=== PATIENT | male | born 1955 | race Caucasian/White ===

== ENCOUNTER 2016-08-13 17:31 | Inpatient (IN) ==
[2016-08-13] MEDS ORDERED: Ondansetron 4 MG/2 ML VIAL IVP ONE (19:52)
[2016-08-13] MEDS ORDERED: *HR* Morphine 2 MG/ML SYRINGE IVP ONE (19:52)
[2016-08-13] MEDS ORDERED: 0.9 % Sodium Chloride 500 ML IVC ONE (19:54)
--- NOTE | 2016-08-13 20:02 | Emergency Department Note ---
Disposition Clinical Impression: Elevated liver enzymes Disposition: Admitted As Inpatient Condition: Fair Referrals: NO,PCP [Primary Care Provider] - Forms: Work/School Release, ED Satisfaction Letter General Adult HPI - General Chief complaint: ED General Medical Stated complaint: Knot on stomach Source: patient Limitations: no limitations - History of Present Illness HPI Narrative: This is a 61-year-old male who has a distant history of a bowel resection in the vicinity of 2002. He states over the past several weeks he has noticed a hernia but over the past week in particular would not go back in. It has been hurting over the last few days. He also has some generalized abdominal pain as well. He has been eating and drinking normally. No constipation or diarrhea. No fever. Pain is moderate. Pain Scale: 8 - Related Data Previous Rx's Medication Instructions Recorded Albuterol Sulfate [Albuterol 2 puff IH Q4HR PRN #1 [email or web address] 09/05/15 Inhaler] Ipratropium [Atrovent Inhaler] 2 puff IH QID #1 inhaler 03/10/16 Mometasone Furoate [Asmanex Hfa] 1 puff IH BID #1 [email or web address] 03/10/16 Acetaminophen [Tylenol] 1,000 mg PO Q6HR #8 tablet 03/23/16 Allergies Allergy/AdvReac Type Severity Reaction Status Date / Time No Known Allergies Allergy Verified 03/10/16 14:27 All systems ED: reviewed and negative except as stated. Constitutional: Denies: fever, chills ENT ED: Denies: throat pain Cardiovascular: Denies: chest pain Respiratory: Denies: dyspnea Gastrointestinal: Denies: vomiting Musculoskeletal: Denies: back pain, neck pain Past Medical History - Past Medical History Attestation: Yes The following information was validated with the patient. Medical history: Reports: COPD, other Psychiatric history: Reports: no psych history - Social History Smoking Status: Current every day smoker Smokeless Tobacco Status: No Alcohol use: Reports: none Drug use: Reports: none Physical Exam - General Limitations: no limitations General appearance: alert - Head Head exam: atraumatic - Eye Eye exam: Present: PERRL - ENT ENT exam: normal oropharynx - Neck Neck exam: Present: full ROM - Chest Chest inspection: Present: normal inspection, symmetric chest wall rise - Respiratory Respiratory exam: Present: wheezes, prolonged expiratory phase. Absent: respiratory distress - Cardiovascular Cardiovascular exam: Present: regular rate, normal rhythm - Abdominal Exam Abdominal exam: Present: other (Although it is not visible he seems to have a palpable hernia above the umbilical area. It does not reduce. There is some tenderness there. It small. He has some nonspecific tenderness throughout the abdomen. No rigidity rebound or guarding.) - Extremities Exam Extremities exam: Absent: pedal edema - Neurological Exam Neurological exam: Present: alert, oriented X3 - Psychiatric Psychiatric exam: Present: normal affect - Skin Skin exam: Present: warm, dry Course Course Narrative: This patient was mainly presenting for pain that he attributed to a hernia however on the CT scan of the abdomen and pelvis there is no bowel involvement of the hernia per the radiologist. Also has no evidence of bowel obstruction. However this patient clearly has other issues going on for initially suggested by the blood work. He has elevation of his liver transaminases and bilirubin. He denies any history of liver disease. I discussed the case with Dr. Lewis from general surgery. He does feel this is more of a GI issue he may end up needing something along the lines of an ERCP. I discussed the case with the hospitalist Dr. Perez to arrange for admission. Vital Signs Temperature 98.4 F 08/13/16 17:48 Pulse Rate 101 08/13/16 17:48 Respiratory Rate 14 08/13/16 17:48 Blood Pressure 121/83 08/13/16 17:48 O2 Sat by Pulse Oximetry 94 08/13/16 17:48 Temperature 98.4 F 08/13/16 17:48 Pulse Rate 89 08/13/16 23:50 Respiratory Rate 18 08/13/16 23:50 Blood Pressure 136/96 08/13/16 23:50 O2 Sat by Pulse Oximetry 95 08/13/16 23:50 Oxygen Delivery Oxygen Delivery Nasal Cannula Medical Decision Making - Lab Data Result diagrams: 08/13/16 20:10 08/13/16 20:10 Lab Results 08/13/16 08/13/16 08/13/16 Range/Units 20:10 20:10 20:10 WBC 8.9 (4.3-11.1) K/mcL RBC 4.68 (4.19-5.50) M/mcL Hgb 12.9 (12.9-16.9) g/dL Hct 39.6 (37.5-50.1) % MCV 84.6 (83.0-100.0) fL MCH 27.6 L (28.0-33.3) pg MCHC 32.6 (31.6-35.5) g/dL RDW 15.4 H (11.5-14.5) % Plt Count 332 (140-400) K/mcL MPV 10.0 (9.4-12.4) fL Immature Gran % 0.3 (0-4) % Seg Neutrophils % 64.6 % Lymphocytes % 16.7 % Monocytes % 15.8 % Eosinophils % 1.9 % Basophils % 0.7 % Neutrophils # 5.7 (1.6-8.9) K/mcL Lymphocytes # 1.5 (0.6-4.6) K/mcL Monocytes # 1.4 H (0.0-1.3) K/mcL Eosinophils # 0.2 (0.0-0.6) K/mcL Basophils # 0.1 (0.0-0.2) K/mcL Sodium 130 L (136-145) mEq/L Potassium 3.8 (3.5-4.5) mEq/L Chloride 95 L (98-109) mEq/L Carbon Dioxide 29 (19-29) mEq/L BUN 8 (8-26) mg/dL Creatinine 0.69 L (0.72-1.25) mg/dL Est GFR ( Amer) > 60 (> 60) Est GFR (Non-Af Amer) > 60 (> 60) BUN/Creatinine Ratio 12 (6-26) Glucose 102 H (70-99) mg/dL Calculated Osmolality 269 L (280-300) Lactic Acid 1.2 (0.5-2.2) mmol/L Calcium 9.0 (8.6-10.8) mg/dL Total Bilirubin 6.2 H (0.2-1.2) mg/dL Direct Bilirubin 5.0 H (0.0-0.5) mg/dL Indirect Bilirubin 1.2 (0.0-1.2) mg/dL AST 975 H (5-34) Units/L ALT 650 H (0-55) Units/L Alkaline Phosphatase 253 H (38-126) Units/L Serum Total Protein 7.3 (6.0-8.3) g/dL Albumin 3.1 L (3.5-5.0) g/dL Globulin 4.2 H (2.4-3.5) g/dL Albumin/Globulin Ratio 0.7 L (1.1-2.2) Lipase 6 L (8-78) Units/L Urine Color (Yellow) Urine Clarity (Clear) Urine pH (5.0-8.0) pH Units Ur Specific Sparks (1.010-1.025) Urine Protein (Neg-Trace) mg/dL Urine Glucose (UA) (Normal) mg/dL Urine Ketones (Negative) mg/dL Urine Blood (Negative) Urine Nitrite (Negative) Urine Bilirubin (Negative) Urine Urobilinogen (Normal) mg/dL Ur Leukocyte Esterase (Negative) Urine Microscopic RBC (0-3) per hpf Urine Microscopic WBC (0-3) per hpf Ur Squamous Epith Cells (None-Few) per lpf Urine Bacteria Hyaline Casts (None-Few) per lpf Urine Mucus (Few) Ur Culture Indicated? (NO) 08/13/16 Range/Units 20:46 WBC (4.3-11.1) K/mcL RBC (4.19-5.50) M/mcL Hgb (12.9-16.9) g/dL Hct (37.5-50.1) % MCV (83.0-100.0) fL MCH (28.0-33.3) pg MCHC (31.6-35.5) g/dL RDW (11.5-14.5) % Plt Count (140-400) K/mcL MPV (9.4-12.4) fL Immature Gran % (0-4) % Seg Neutrophils % % Lymphocytes % % Monocytes % % Eosinophils % % Basophils % % Neutrophils # (1.6-8.9) K/mcL Lymphocytes # (0.6-4.6) K/mcL Monocytes # (0.0-1.3) K/mcL Eosinophils # (0.0-0.6) K/mcL Basophils # (0.0-0.2) K/mcL Sodium (136-145) mEq/L Potassium (3.5-4.5) mEq/L Chloride (98-109) mEq/L Carbon Dioxide (19-29) mEq/L BUN (8-26) mg/dL Creatinine (0.72-1.25) mg/dL Est GFR ( Amer) (> 60) Est GFR (Non-Af Amer) (> 60) BUN/Creatinine Ratio (6-26) Glucose (70-99) mg/dL Calculated Osmolality (280-300) Lactic Acid (0.5-2.2) mmol/L Calcium (8.6-10.8) mg/dL Total Bilirubin (0.2-1.2) mg/dL Direct Bilirubin (0.0-0.5) mg/dL Indirect Bilirubin (0.0-1.2) mg/dL AST (5-34) Units/L ALT (0-55) Units/L Alkaline Phosphatase (38-126) Units/L Serum Total Protein (6.0-8.3) g/dL Albumin (3.5-5.0) g/dL Globulin (2.4-3.5) g/dL Albumin/Globulin Ratio (1.1-2.2) Lipase (8-78) Units/L Urine Color Red A (Yellow) Urine Clarity Turbid A (Clear) Urine pH 5.5 (5.0-8.0) pH Units Ur Specific Sparks 1.030 H (1.010-1.025) Urine Protein 30 H (Neg-Trace) mg/dL Urine Glucose (UA) Normal (Normal) mg/dL Urine Ketones Trace H (Negative) mg/dL Urine Blood Negative (Negative) Urine Nitrite Positive A (Negative) Urine Bilirubin Large H (Negative) Urine Urobilinogen 4.0 H (Normal) mg/dL Ur Leukocyte Esterase Small H (Negative) Urine Microscopic RBC 5-15 H (0-3) per hpf Urine Microscopic WBC 5-15 H (0-3) per hpf Ur Squamous Epith Cells Moderate H (None-Few) per lpf Urine Bacteria [employer] Hyaline Casts Few (None-Few) per lpf Urine Mucus Few (Few) Ur Culture Indicated? YES A (NO)
[2016-08-13 20:15] LABS: Basophils # 0.1 K/mcL (0.0-0.2); Basophils % 0.7 %; Eosinophils # 0.2 K/mcL (0.0-0.6); Eosinophils % 1.9 %; Hematocrit 39.6 % (37.5-50.1); Hemoglobin 12.9 g/dL (12.9-16.9); Immature Granulocytes % 0.3 % (0-4); Lymphocytes # 1.5 K/mcL (0.6-4.6); Lymphocytes % 16.7 %; Mean Corpuscular HGB Conc 32.6 g/dL (31.6-35.5); Mean Corpuscular Hemoglobin 27.6 pg (28.0-33.3); Mean Corpuscular Volume 84.6 fL (83.0-100.0); Monocytes # 1.4 K/mcL (0.0-1.3); Monocytes % 15.8 %; Neutrophils # 5.7 K/mcL (1.6-8.9); Platelet Count 332 K/mcL (140-400); Red Blood Count 4.68 M/mcL (4.19-5.50); Red Cell Distribution Width 15.4 % (11.5-14.5); Segmented Neutrophils % 64.6 %
[2016-08-13 20:30] LABS: Alanine Aminotransferase 650 Units/L (0-55); Albumin 3.1 g/dL (3.5-5.0); Albumin/Globulin Ratio 0.7 (1.1-2.2); Alkaline Phosphatase 253 Units/L (38-126); Aspartate Amino Transferase 975 Units/L (5-34); BUN/Creatinine Ratio 12 (6-26); Bilirubin,Indirect 1.2 mg/dL (0.0-1.2); Bilirubin,Total 6.2 mg/dL (0.2-1.2); Blood Urea Nitrogen 8 mg/dL (8-26); Carbon Dioxide 29 mEq/L (19-29); Chloride 95 mEq/L (98-109); Globulin 4.2 g/dL (2.4-3.5); Glucose 102 mg/dL (70-99); Lipase 6 Units/L (8-78); Osmolality,Calculated 269 (280-300); Potassium 3.8 mEq/L (3.5-4.5); Sodium 130 mEq/L (136-145); Total Protein 7.3 g/dL (6.0-8.3); eGFR For African Americans > 60 (> 60); eGFR For Non-African Americans > 60 (> 60)
[2016-08-13 21:02] LABS: Bilirubin,Urine Large (Negative); Blood,Urine Negative (Negative); Clarity,Urine Turbid (Clear); Color,Urine Red (Yellow); Glucose,Urine (UA) Normal (Normal); Ketones,Urine Trace mg/dL (Negative); Leukocyte Esterase,Urine Small (Negative); Nitrite,Urine Positive (Negative); PH,Urine 5.5 pH Units (5.0-8.0); Protein,Urine 30 mg/dL (Neg-Trace)
[2016-08-13 21:04] LABS: Hyaline Casts,Urine Few per lpf (None-Few); Squamous Epithelial Cell,Urine Moderate per lpf (None-Few)
[2016-08-13 21:14] LABS: Mucus,Urine Few (Few)
[2016-08-14] MEDS ORDERED: *HR* HYDROmorphone (PF) 1 MG/ML SYRINGE IVP ONE (00:04)
--- NOTE | 2016-08-14 04:36 | Internal Med History&Physical ---
Date of Encounter: 08/14/16 Time of Encounter: 04:30 Assessment and Plan (1) Choledocholithiasis with obstruction Current visit: Yes Status: Acute . Qualifiers: Cholangitis presence: without cholangitis Qualified Code(s): K80.51 - Calculus of bile duct without cholangitis or cholecystitis with obstruction (2) Acute cholestatic jaundice syndrome Current visit: Yes Status: Acute . (3) Acute abdominal pain syndrome Current visit: Yes Status: Acute . Internal Medicine - H&P: HPI Chief complaint: Pain/Knot on stomach. Admitted From: Emergency Dept Plans for Post Hospital Care: Home History of present illness: Mr. Fair is a 61 year old male with significant health history for COPD/plan lobular emphysema, asthma/RAD, cholelithiasis, steatohepatitis, nicotine dependency, and history of partial bowel resection unspecified in 2002. The patient is admitted [facility] the emergency department when he presents with reports of his appreciation of a tender knot-like structure near his navel. She did not present for the last week in particular it seemed to nonreducible and was associated with the pain. He denied any symptoms of bowel obstruction. Denied any effect in his ability to eat or drink normally. Denied any constipation or diarrhea that precipitated this finding. Denied any associated fevers, chills sweats. He denies any evidence of any bleeding events. His pain however he reported it as being moderate to severe at roughly 8/10 in severity. He had experienced episodes of increasing nausea and vomiting. He however noted no evidence of bleeding. He had noted increasing itchiness of his skin of late and a sallow following of his complexion. He had noted some increasing generalized malaise and easy fatigability. He denies any specific dietary intolerances. Denies any dietary or medication indiscretions. He denies any sick contacts. Findings an EGD done his vital signs are stable except for a mild tachycardia at 101 bpm and resting hypoxemia at 94%RA. WBC 8.9 hemoglobin 12.9 platelets 332,000. Differential showed an increase in monocytes. RDW increased at 15.4. Metabolic panel noted a sodium of 1. Chloride of 95. BUN and creatinine were 8 and 0.69. Glucose 102 osmolality 269. Lactic acid 1.2. Hepatic function, total bilirubin of 6.2 direct 5.0. Indirect 1.2. AST 975 ALT 650 alkaline phosphatase 253. Albumin 3.2 total protein 7.3. Urinalysis was red in color turbid appearance. Positive protein. Trace ketones. Positive nitrite and large bilirubin. Urobilinogen 4.0. Small leukocyte esterase. 15 RBC. 15 WBC. Moderate epithelial cells. Few hyaline casts. Specific gravity 1.03. CT of abdomen and pelvis with IV contrast demonstrated evidence for intrahepatic and extrahepatic biliary ductal dilatation of uncertain etiology. ERCP versus MRCP recommendations are made. Gallbladder was contracted. Pancreatic duct was not dilated. The spleen and adrenal glands kidneys appeared to be normal. There was no obstructive bowel gas pattern. A small supraumbilical hernia with soft tissue stranding but no evidence of contained bowel was seen. Calcific atherosclerotic disease of the aorta and iliac arteries without aneurysm was seen. Diffuse degenerative changes of the osseous structures seen. tissue prominence of the lung basis is of concern and the recommendation for a high-resolution CT chest is made. Preliminary impression suggests acute cholestatic jaundice secondary to biliary ductal obstruction in a patient with long-standing history of intermittently symptomatic cholelithiasis. There is no history of diagnosed chronic cholecystitis or acute cholecystitis the patient does raise a question of a spot being seen on his status which is unspecified. Denies alcohol dependence or abuse history. He does acknowledge recreational drug abuse history or dependence( IV Opana/daily). Findings are significant for resting hypoxemia in a patient with panlobular emphysema visiting with a mild reactive airway disease. The patient does not present with SIRS/sepsis criteria being met admission. He presents however risk for further clinical decline his presenting complaints his comorbidities and clinical findings. (ED consulted general surgery informally prior to admission and recommendation was to defer to gastroenterology.) Workup and treatment will proceed comprehensively. The patient was visited and interviewed and examined. Cumulative laboratory and radiographic data base will be considered and discussed. Pertinent ancillary medical records including ECW and PCI documentation when available was reviewed and considered. Given the patient's presenting concerns, past medical history, clinical findings and symptoms, she is admitted at this time will undergo further evaluation and disposition. Orders were written as per the computerized physician warehouse order filler system.......................................................................... .................... Consultative opinions will be sought as clinical circumstances justify. Gastroenterology (and ultimately general surgery) will be consulted Pain management needs will be addressed. Laboratory+radiographic data base will be updated as appropriate. Studies include: Cultures of blood and urine and sputum, viral hep panel, pt/inr, aptt, CEA, CA19-9, amylase, lipase, cardiac injury panel, BNP, cpk, metabolic and hematologic panel, magnesium, phosphorus, ionized calcium, UDS, UA, thyroid panel, lipid profile, A1c, C-peptide, CRP, sedimentation rate, respiratory infection profile, respiratory virus panel, blood gas, lactic acid, serologies, etc. Precautions: Aspiration, fall, seizure, delirium protocol/surveillance initiated. Telemetry with continuous hemodynamic monitoring and pulse oximetry initiated. Empiric antibiotic coverage: pending diagnostic/culture data. Special studies: HRCT chest, CT ab/pelvis, MRCP, chest x-ray, telemetry, EKG. Pulmonary toilet: Incentive spirometry, aerosol bronchodilator, mucolytic, antitussive, supplemental oxygen. Corticosteroid therapy. CPAP/BiPAP supplemental oxygen delivery. Aerosol Mucomyst therapy. Fluid and electrolyte repletion efforts will proceed. Careful attention to fluid balance and renal recovery will be emphasized. Avoidance of nephrotoxic exposure and adverse drug drug interaction in the setting of impaired renal function will be monitored closely. Acute coronary syndrome protocol/surveillance initiated. DVT and PUD prophylaxis initiated: PPI therapy, intermittent pneumatic cuffs/ TEDs. Subcutaneous heparin/Lovenox. Early ambulation will be encouraged. Immunization updates recommended. Influenza and pneumococcal vaccinations as part of ongoing preventative healthcare recommendations strongly recommended. Smoking cessation counseling briefly addressed. Patient accepts nicotine substitution during this hospitalization.. Advanced care directive discussion briefly addressed. Patient does not declare any healthcare restrictions at this time. Cardiovascular risk appraisal and cardiovascular risk reduction efforts will be emphasized. Physical occupational therapy may be counseled to evaluate patient's function capacity and progressive mobility of her circumstances justify. Nutrition/dietary education. Supplementary diet options counseling may be considered.. Outpatient medication schedules will be reviewed, confirmed and facilitated as appropriate. Reconciliation of home treatments including adjustments, substitutions and reintroduction into the treatment regimen will address necessary maintenance therapies for chronic pre-existing medical conditions. Plan of care has been reviewed and discussed in detail with the patient. Questions addressed. Hospital course dictated by clinical findings, treatment response and potential consultative interventions. Patient is a risk for further acute clinical decline due to his presenting chief complaints, findings and comorbid conditions. Condition is serious. Prognosis is guarded. CODE STATUS is full. Past Med Surg Social Fam HX - Past Medical History Source: old records reviewed Medical history: arthritis, asthma, COPD, other Psychiatric history: no psych history - Past Surgical History Surgical History: other - Social History Smoking Status: Current every day smoker Smokeless Tobacco Status: No Alcohol use: none, unknown Drug use: none, opiates, IVDU, other (OPANA) Occupational status: unemployed Current living situation: Home - Independent, Home Activity Level: Independent ambulation, Mostly sedentary Recent Out of Country Travel Within the Last 8 Weeks: No Exposure or Possible Exposure to Illness During Travel: No - Family History Father Adopted: [place]: Galen Fair Living Status: Age at : 69 Hx Family Cardiac Disorders: No Hx Family Respiratory Disorders: No Hx Family Cancer: Yes (Colon cancer) Hx Family GI Disorders: Yes Hx Family Genitourinary Disorders: No Hx Family Endocrine Disorder: No Hx Family Musculoskeletal Disorders: No Hx Family Neuromuscular Disorders: No Hx Family Neurologic Disorders: No Hx Family HEENT Disorders: No Hx Family Autoimmune Disorders: No Hx Family Reproductive Disorders: No Hx Family Psychosocial Disorders: No Hx Family Medical Disorders: No Mother Adopted: [place]: Edwina Fair Family Member Ethnicity: Non- Living Status: Age at : 69 Hx Family Cardiac Disorders: No Hx Family Respiratory Disorders: Yes (COPD) Hx Family Cancer: Yes Hx Family GI Disorders: No Hx Family Genitourinary Disorders: No Hx Family Endocrine Disorder: No Hx Family Musculoskeletal Disorders: No Hx Family Neuromuscular Disorders: No Hx Family Neurologic Disorders: No Hx Family HEENT Disorders: No Hx Family Autoimmune Disorders: No Hx Family Reproductive Disorders: No Hx Family Psychosocial Disorders: No Hx Family Medical Disorders: No Internal Medicine - H&P: Meds Albuterol Sulfate [Albuterol Inhaler] 2 puff IH Q4HR PRN #1 [email or web address] 09/05/15 [Rx] Ipratropium [Atrovent Inhaler] 2 puff IH QID #1 inhaler 03/10/16 [Rx] Mometasone Furoate [Asmanex Hfa] 1 puff IH BID #1 [email or web address] 03/10/16 [Rx] Allergies No Known Allergies Allergy (Verified 03/10/16 14:27) All Systems PM: A 10-system review of systems was performed and is negative for pertinent findings except as documented above in the HPI. - Constitutional Constitutional: as per HPI, anorexia, fatigue, malaise, other, no chills, no excessive sweating, no fever(s), no night sweats - EENT Eyes: as per HPI, other visual disturbances, no change in vision, no discharge, no pain, no photophobia Ears: as per HPI, decreased hearing, no ear discharge, no ear pain, no tinnitus Nose, mouth and throat: as per HPI, no dysphagia, no nasal discharge, no neck pain, no sore throat - Cardiovascular Cardiovascular ROS IM: as per HPI, no chest pain, no diaphoresis, no dyspnea, no lightheadedness, no palpitations, no syncope - Respiratory Respiratory: as per HPI, other, no cough, no dyspnea, no wheezing, no excessive phlegm production - Gastrointestinal Gastrointestinal: as per HPI, abdominal pain, cramping, early satiety, nausea, vomiting, no coffee ground emesis, no diarrhea, no hematemesis, no hematochezia , no melena - Genitourinary Genitourinary ROS male: as per HPI - Musculoskeletal Musculoskeletal ROS IM: as per HPI, no numbness, no tingling - Integumentary Integumentary IM: as per HPI, pruritus, jaundice, other, no rash, no unusual bruising - Neurological Neurological ROS: as per HPI, no confusion, no convulsions, no focal weakness, no numbness, no tingling, no tremor(s) - Psychiatric Psychiatric: as per HPI - Endocrine Endocrine IM: as per HPI - Hematologic/Lymphatic Hematologic/Lymphatic: as per HPI, no easy bruising - Allergic/Immunologic Allergic/Immunologic: as per HPI - Constitutional Vitals: Temp Pulse Resp BP Pulse Ox 98 F 89 14 122/79 97 08/14/16 01:37 08/14/16 01:37 08/14/16 01:37 08/14/16 01:37 08/14/16 01:37 Vital Signs Temp Pulse Resp BP Pulse Ox 08/14/16 01:37 98 F 89 14 122/79 97 08/14/16 00:59 18 134/102 08/14/16 00:24 89 18 143/76 94 08/13/16 23:50 89 18 136/96 95 08/13/16 22:55 90 18 135/95 96 08/13/16 21:55 95 18 123/83 96 08/13/16 20:43 90 18 129/98 92 08/13/16 17:48 98.4 F 101 14 121/83 94 Intake and Output 08/13/16 08/13/16 08/14/16 15:59 23:59 07:59 Intake Total 500 / 500 0 / 0 Balance 500 / 500 0 / 0 Intake: IV Fluids 500 / 500 0.9 % Sodium Chloride 500 500 / 500 ML @ 1875 mls/hr IVC . Q16M ONE Rx#:[id number] Oral 0 / 0 Other: Weight 63.503 kg 58.786 kg Patient Weight 08/14/16 23:59 Weight 58.786 kg General appearance: Present: cooperative, mild distress, A&O X 3, answers questions appropriately - Head Head exam: Present: atraumatic, normocephalic - Eye Eye exam: Present: conjunctival injection, EOMI, PERRL, scleral icterus Pupils: Present: normal accommodation - ENT ENT exam: Present: mucous membranes dry, normal external ear exam, normal oropharynx - Neck Neck exam general surgery: Present: full ROM, supple, trachea midline. Absent: lymphadenopathy - Respiratory Respiratory exam: Present: decreased breath sounds, prolonged expiratory phase, wheezes. Absent: accessory muscle use, CTAB, rales, rhonchi, stridor - Cardiovascular Cardiovascular exam: Present: distant heart sounds, RRR, +S1, +S2. Absent: diastolic murmur, gallop, rubs, systolic murmur - GI/Abdominal GI/Abdominal exam: Present: diminished bowel sounds, distended, hernia, soft, tenderness, no peritoneal signs. Absent: rebound - Extremities Exam Extremities exam: Present: full ROM, warm, radial pulses palpable and symetrical. Absent: calf tenderness, cyanotic, pedal edema - Neurological Exam Neurological exam: Present: alert, CN II-XII intact, oriented X3, no focal deficits. Absent: pronater drift, facial droop, speech deficit - Psychiatric Psychiatric exam: Present: normal affect, normal mood - Skin Skin exam: Present: dry, intact, warm. Absent: normal color Internal Med - H&P Results - Labs CBC & Chem 7: 08/13/16 20:10 08/13/16 20:10 Labs: Short CBC 08/13/16 Range/Units 20:10 WBC 8.9 (4.3-11.1) K/mcL Hgb 12.9 (12.9-16.9) g/dL Hct 39.6 (37.5-50.1) % Plt Count 332 (140-400) K/mcL Neutrophils # 5.7 (1.6-8.9) K/mcL BMP 08/13/16 Range/Units 20:10 Sodium 130 L (136-145) mEq/L Potassium 3.8 (3.5-4.5) mEq/L Chloride 95 L (98-109) mEq/L Carbon Dioxide 29 (19-29) mEq/L BUN 8 (8-26) mg/dL Creatinine 0.69 L (0.72-1.25) mg/dL Glucose 102 H (70-99) mg/dL Calcium 9.0 (8.6-10.8) mg/dL Liver Function 08/13/16 Range/Units 20:10 Total Bilirubin 6.2 H (0.2-1.2) mg/dL Direct Bilirubin 5.0 H (0.0-0.5) mg/dL AST 975 H (5-34) Units/L ALT 650 H (0-55) Units/L Alkaline Phosphatase 253 H (38-126) Units/L Albumin 3.1 L (3.5-5.0) g/dL Urine 08/13/16 Range/Units 20:46 Urine Color Red A (Yellow) Urine Clarity Turbid A (Clear) Urine pH 5.5 (5.0-8.0) pH Units Ur Specific [place] 1.030 H (1.010-1.025) Urine Protein 30 H (Neg-Trace) mg/dL Urine Glucose (UA) Normal (Normal) mg/dL Abnormal lab results MCH 27.6 pg (28.0-33.3) L 08/13/16 20:10 RDW 15.4 % (11.5-14.5) H 08/13/16 20:10 Monocytes # 1.4 K/mcL (0.0-1.3) H 08/13/16 20:10 Sodium 130 mEq/L (136-145) L 08/13/16 20:10 Chloride 95 mEq/L (98-109) L 08/13/16 20:10 Creatinine 0.69 mg/dL (0.72-1.25) L 08/13/16 20:10 Glucose 102 mg/dL (70-99) H 08/13/16 20:10 Calculated Osmolality 269 (280-300) L 08/13/16 20:10 Total Bilirubin 6.2 mg/dL (0.2-1.2) H 08/13/16 20:10 Direct Bilirubin 5.0 mg/dL (0.0-0.5) H 08/13/16 20:10 AST 975 Units/L (5-34) H 08/13/16 20:10 ALT 650 Units/L (0-55) H 08/13/16 20:10 Alkaline Phosphatase 253 Units/L (38-126) H 08/13/16 20:10 Albumin 3.1 g/dL (3.5-5.0) L 08/13/16 20:10 Globulin 4.2 g/dL (2.4-3.5) H 08/13/16 20:10 Albumin/Globulin Ratio 0.7 (1.1-2.2) L 08/13/16 20:10 Lipase 6 Units/L (8-78) L 08/13/16 20:10 Urine Color Red (Yellow) A 08/13/16 20:46 Urine Clarity Turbid (Clear) A 08/13/16 20:46 Ur Specific [place] 1.030 (1.010-1.025) H 08/13/16 20:46 Urine Protein 30 mg/dL (Neg-Trace) H 08/13/16 20:46 Urine Ketones Trace mg/dL (Negative) H 08/13/16 20:46 Urine Nitrite Positive (Negative) A 08/13/16 20:46 Urine Bilirubin Large (Negative) H 08/13/16 20:46 Urine Urobilinogen 4.0 mg/dL (Normal) H 08/13/16 20:46 Ur Leukocyte Esterase Small (Negative) H 08/13/16 20:46 Urine Microscopic RBC 5-15 per hpf (0-3) H 08/13/16 20:46 Urine Microscopic WBC 5-15 per hpf (0-3) H 08/13/16 20:46 Ur Squamous Epith Cells Moderate per lpf (None-Few) H 08/13/16 20:46 Ur Culture Indicated? YES (NO) A 08/13/16 20:46 Laboratory Results WBC 8.9 K/mcL (4.3-11.1) 08/13/16 20:10 RBC 4.68 M/mcL (4.19-5.50) 08/13/16 20:10 Hgb 12.9 g/dL (12.9-16.9) 08/13/16 20:10 Hct 39.6 % (37.5-50.1) 08/13/16 20:10 MCV 84.6 fL (83.0-100.0) 08/13/16 20:10 MCH 27.6 pg (28.0-33.3) L 08/13/16 20:10 MCHC 32.6 g/dL (31.6-35.5) 08/13/16 20:10 RDW 15.4 % (11.5-14.5) H 08/13/16 20:10 Plt Count 332 K/mcL (140-400) 08/13/16 20:10 MPV 10.0 fL (9.4-12.4) 08/13/16 20:10 Immature Gran % 0.3 % (0-4) 08/13/16 20:10 Seg Neutrophils % 64.6 % 08/13/16 20:10 Lymphocytes % 16.7 % 08/13/16 20:10 Monocytes % 15.8 % 08/13/16 20:10 Eosinophils % 1.9 % 08/13/16 20:10 Basophils % 0.7 % 08/13/16 20:10 Neutrophils # 5.7 K/mcL (1.6-8.9) 08/13/16 20:10 Lymphocytes # 1.5 K/mcL (0.6-4.6) 08/13/16 20:10 Monocytes # 1.4 K/mcL (0.0-1.3) H 08/13/16 20:10 Eosinophils # 0.2 K/mcL (0.0-0.6) 08/13/16 20:10 Basophils # 0.1 K/mcL (0.0-0.2) 08/13/16 20:10 Sodium 130 mEq/L (136-145) L 08/13/16 20:10 Potassium 3.8 mEq/L (3.5-4.5) 08/13/16 20:10 Chloride 95 mEq/L (98-109) L 08/13/16 20:10 Carbon Dioxide 29 mEq/L (19-29) 08/13/16 20:10 BUN 8 mg/dL (8-26) 08/13/16 20:10 Creatinine 0.69 mg/dL (0.72-1.25) L 08/13/16 20:10 Est GFR ( Amer) > 60 (> 60) 08/13/16 20:10 Est GFR (Non-Af Amer) > 60 (> 60) 08/13/16 20:10 BUN/Creatinine Ratio 12 (6-26) 08/13/16 20:10 Glucose 102 mg/dL (70-99) H 08/13/16 20:10 Calculated Osmolality 269 (280-300) L 08/13/16 20:10 Lactic Acid 1.2 mmol/L (0.5-2.2) 08/13/16 20:10 Calcium 9.0 mg/dL (8.6-10.8) 08/13/16 20:10 Total Bilirubin 6.2 mg/dL (0.2-1.2) H 08/13/16 20:10 Direct Bilirubin 5.0 mg/dL (0.0-0.5) H 08/13/16 20:10 Indirect Bilirubin 1.2 mg/dL (0.0-1.2) 08/13/16 20:10 AST 975 Units/L (5-34) H 08/13/16 20:10 ALT 650 Units/L (0-55) H 08/13/16 20:10 Alkaline Phosphatase 253 Units/L (38-126) H 08/13/16 20:10 Serum Total Protein 7.3 g/dL (6.0-8.3) 08/13/16 20:10 Albumin 3.1 g/dL (3.5-5.0) L 08/13/16 20:10 Globulin 4.2 g/dL (2.4-3.5) H 08/13/16 20:10 Albumin/Globulin Ratio 0.7 (1.1-2.2) L 08/13/16 20:10 Lipase 6 Units/L (8-78) L 08/13/16 20:10 Urine Color Red (Yellow) A 08/13/16 20:46 Urine Clarity Turbid (Clear) A 08/13/16 20:46 Urine pH 5.5 pH Units (5.0-8.0) 08/13/16 20:46 Ur Specific [place] 1.030 (1.010-1.025) H 08/13/16 20:46 Urine Protein 30 mg/dL (Neg-Trace) H 08/13/16 20:46 Urine Glucose (UA) Normal mg/dL (Normal) 08/13/16 20:46 Urine Ketones Trace mg/dL (Negative) H 08/13/16 20:46 Urine Blood Negative (Negative) 08/13/16 20:46 Urine Nitrite Positive (Negative) A 08/13/16 20:46 Urine Bilirubin Large (Negative) H 08/13/16 20:46 Urine Urobilinogen 4.0 mg/dL (Normal) H 08/13/16 20:46 Ur Leukocyte Esterase Small (Negative) H 08/13/16 20:46 Urine Microscopic RBC 5-15 per hpf (0-3) H 08/13/16 20:46 Urine Microscopic WBC 5-15 per hpf (0-3) H 08/13/16 20:46 Ur Squamous Epith Cells Moderate per lpf (None-Few) H 08/13/16 20:46 Urine Bacteria EEG TECHNICIAN 08/13/16 20:46 Hyaline Casts Few per lpf (None-Few) 08/13/16 20:46 Urine Mucus Few (Few) 08/13/16 20:46 Ur Culture Indicated? YES (NO) A 08/13/16 20:46 Impressions Abdomen/Pelvis CT 08/13/16 22:30 IMPRESSION: Intrahepatic and extrahepatic biliary ductal dilation of uncertain etiology. Recommend correlation with liver function tests. ERCP or MRCP are recommended for further evaluation. Interstitial prominence at both lung bases. High-resolution chest CT is recommended for further evaluation. Small supraumbilical hernia with soft tissue stranding but no evidence for contained bowel D/ / Marvin Feliciano MD / Marvin Feliciano MD Interpreting Provider: Marvin Feliciano MD
[2016-08-14] MEDS ORDERED: Naloxone 0.4 MG/ML INJ IVP PRN (09:02)
[2016-08-14] MEDS ORDERED: Acetaminophen 325 MG TABLET PO PRN (09:02)
[2016-08-14] MEDS ORDERED: *HR* Promethazine 25 MG/ML VIAL IVP PRN (09:02)
[2016-08-14] MEDS ORDERED: *HR* LORazepam 2 MG/ML VIAL IVP PRN ×3 (09:02)
[2016-08-14] MEDS ORDERED: Scopolamine Patch 1.5 MG PATCH.TD72 TD ONE (09:15)
[2016-08-14] MEDS ORDERED: Benzonatate 100 MG CAPSULE PO PRN (09:15)
[2016-08-14] MEDS ORDERED: Ketorolac 15 MG/ML VIAL IVP PRN (09:16)
[2016-08-14] MEDS ORDERED: Promethazine 12.5 MG in 0.9 % Sodium Chloride 50 ML IVPB PRN (09:44)
[2016-08-14] MEDS: Pantoprazole 40 MG VIAL IVP SCH ×2 (09:52→21:26)
[2016-08-14] MEDS: Ringers Solution, Lactated 1,000 ML IVC SCH ×3 (09:52→15:02)
[2016-08-14] MEDS: *HR* HYDROmorphone (PF) 1 MG/ML SYRINGE IVP PRN ×2 (09:53→21:26)
[2016-08-14 10:21] LABS: Basophils # 0.1 K/mcL (0.0-0.2); Basophils % 0.6 %; Eosinophils # 0.3 K/mcL (0.0-0.6); Eosinophils % 3.2 %; Hematocrit 36.6 % (37.5-50.1); Hemoglobin 12.3 g/dL (12.9-16.9); Immature Granulocytes % 0.4 % (0-4); Lymphocytes # 1.3 K/mcL (0.6-4.6); Lymphocytes % 15.9 %; Mean Corpuscular HGB Conc 33.6 g/dL (31.6-35.5); Mean Corpuscular Hemoglobin 28.1 pg (28.0-33.3); Mean Corpuscular Volume 83.8 fL (83.0-100.0); Mean Platelet Volume 10.4 fL (9.4-12.4); Monocytes # 1.3 K/mcL (0.0-1.3); Neutrophils # 5.2 K/mcL (1.6-8.9); Platelet Count 309 K/mcL (140-400); Red Blood Count 4.37 M/mcL (4.19-5.50); Red Cell Distribution Width 15.5 % (11.5-14.5); Segmented Neutrophils % 63.9 %
[2016-08-14 10:26] LABS: INR 1.7; Prothrombin Time 18.7 Seconds (9.4-12.1)
[2016-08-14 10:28] LABS: Activated Partial Thrombo Time 33.9 Seconds (26.0-36.0)
[2016-08-14 11:28] LABS: BUN/Creatinine Ratio 9 (6-26); Calcium 8.2 mg/dL (8.6-10.8); Carbon Dioxide 25 mEq/L (19-29); Chloride 100 mEq/L (98-109); Glucose 93 mg/dL (70-99); Magnesium 1.5 mg/dL (1.6-2.6); Osmolality,Calculated 275 (280-300); Phosphorous 2.6 mg/dL (2.3-4.7); Potassium 3.9 mEq/L (3.5-4.5); Sodium 134 mEq/L (136-145); eGFR For African Americans > 60 (> 60); eGFR For Non-African Americans > 60 (> 60)
[2016-08-14 11:29] LABS: Blood Urea Nitrogen 5 mg/dL (8-26)
--- NOTE | 2016-08-14 12:28 | Gastroenterology Consult Note ---
<WoodsRohan watts Katherin - Last Filed: 08/14/16 12:26> Date of Encounter: 08/14/16 Time of Encounter: 10:40 - Assessment and plan (1) Obstructive jaundice Current Visit: Yes Status: Acute Assessment and plan: CT A/P showed intra/extrahepatic biliary dilation. LFT elevated on admission. TB 6.2, DB 5, AST 975, ALT 650, alkaline phosphatase 253. We will recheck hepatic panel. Plan for ERCP today, keep NPO. (2) Elevated liver enzymes Current Visit: Yes Status: Acute - Time Spent With Patient Total time spent is greater than 50% in coordination of care (as documented) at patient's floor/unit and/or counseling patient: GI History of Present Illness - Data of Consult Patient: new to practice Consult date: 08/14/16 Requesting Physician: Wood Benton MD - Consult Narrative Reason for consult: Biliary obstruction, possible stone History of present illness: Mr. Fair is a 61 year old male with PMHx of bowel rescection in 2002, asthma , COPD who was admitted for abdominal pain and hernia near his umbilicus that would not "go back in". He has been able to eat and drink normally. He denies fever, chills, sweats, constipation, diarrhea, melena, or hematochezia. He does report some nausea and vomiting. CT A/P showed intra/extrahepatic biliary dilation. LFT elevated on admission. Procedures: None NSAIDs: None Anticoagulation: None Past Med Surg Social Fam HX - Past Medical History Medical history: arthritis, asthma, COPD, other Psychiatric history: no psych history - Past Surgical History Surgical History: other - Social History Smoking Status: Current every day smoker Smokeless Tobacco Status: No Alcohol use: none, unknown Drug use: none, opiates, IVDU, other (OPANA) - Family History Father Adopted: [place]: Galen Fair Living Status: Age at : 69 Hx Family Cardiac Disorders: No Hx Family Respiratory Disorders: No Hx Family Cancer: Yes (Colon cancer) Hx Family GI Disorders: Yes Hx Family Genitourinary Disorders: No Hx Family Endocrine Disorder: No Hx Family Musculoskeletal Disorders: No Hx Family Neuromuscular Disorders: No Hx Family Neurologic Disorders: No Hx Family HEENT Disorders: No Hx Family Autoimmune Disorders: No Hx Family Reproductive Disorders: No Hx Family Psychosocial Disorders: No Hx Family Medical Disorders: No Mother Adopted: [place]: Edwina Fair Family Member Ethnicity: Non- Living Status: Age at : 69 Hx Family Cardiac Disorders: No Hx Family Respiratory Disorders: Yes (COPD) Hx Family Cancer: Yes Hx Family GI Disorders: No Hx Family Genitourinary Disorders: No Hx Family Endocrine Disorder: No Hx Family Musculoskeletal Disorders: No Hx Family Neuromuscular Disorders: No Hx Family Neurologic Disorders: No Hx Family HEENT Disorders: No Hx Family Autoimmune Disorders: No Hx Family Reproductive Disorders: No Hx Family Psychosocial Disorders: No Hx Family Medical Disorders: No - Gastrointestinal Gastrointestinal: Present: as per HPI - Constitutional Constitutional: as per HPI - EENT Eyes: as per HPI Ears: Present: as per HPI Nose, mouth and throat: Present: as per HPI - Cardiovascular Cardiovascular ROS: Present: as per HPI - Respiratory Respiratory IM: Present: as per HPI - Genitourinary Genitourinary: Absent: change in color, Urinary frequency - Neurological ROS Neurological GI: Present: as per HPI - Hematologic/Lymphatic Hematologic/Lymphatic pediatric: Present: as per HPI - Musculoskeletal Musculoskeletal ROS GI: Present: as per HPI - Integumentary Integumentary GI: Present: as per HPI - Psychiatric ROS Psychiatric GI: Present: as per HPI - Endocrine Endocrine IM: Present: as per HPI - Constitutional Vitals: Temp Pulse Resp BP Pulse Ox 98.2 F 85 18 107/74 94 08/14/16 10:59 08/14/16 10:59 08/14/16 10:59 08/14/16 10:59 08/14/16 10:59 General appearance: Present: cooperative, A&O X 3, no acute distress, answers questions appropriately - Head Head exam: Present: atraumatic, normocephalic - Eye Eye exam: Present: scleral icterus - ENT ENT exam: Present: mucous membranes dry - Neck Neck exam general surgery: Present: normal inspection, trachea midline - Respiratory Respiratory exam: Present: decreased breath sounds, wheezes - Cardiovascular Cardiovascular exam: Present: RRR, +S1, +S2 - GI/Abdominal GI/Abdominal exam: Present: hernia, soft, tenderness, no peritoneal signs. Absent: distended, firm, guarding - Rectal Rectal exam: Present: deferred - Extremities Exam Extremities exam: Present: warm - Neurological Exam Neurological exam: Present: no focal deficits - Psychiatric Psychiatric exam: Present: normal affect, normal mood - Skin Skin exam: Present: dry, intact, normal color, warm Results - Labs CBC & Chem 7: 08/14/16 09:59 08/14/16 09:59 Labs: Last Result Calcium 8.2 mg/dL (8.6-10.8) L 08/14/16 09:59 Entire Visit Hgb 12.3 g/dL (12.9-16.9) L 08/14/16 09:59 Hct 36.6 % (37.5-50.1) L 08/14/16 09:59 PT 18.7 Seconds (9.4-12.1) H 08/14/16 09:59 Total Bilirubin 6.2 mg/dL (0.2-1.2) H 08/13/16 20:10 AST 975 Units/L (5-34) H 08/13/16 20:10 ALT 650 Units/L (0-55) H 08/13/16 20:10 Lipase 6 Units/L (8-78) L 08/13/16 20:10 - ABG ABG results: PT/INR, D-dimer PT 18.7 Seconds (9.4-12.1) H 08/14/16 09:59 - Impressions Impressions Chest CT 08/14/16 10:30 IMPRESSION: 1. Centrilobular and paraseptal emphysema. 2. There are areas of primarily subpleural interstitial thickening noted in the lungs with a slight lower lobe predominance. This is compatible with underlying interstitial lung disease. 3. No suspicious pulmonary nodules or parenchymal lung infiltrates. 4. Atherosclerotic disease. 5. Intrahepatic biliary ductal dilatation, stable. D/ / 08/14/2016 11:20:57 Magno Phillip MD / mauricio Interpreting Provider: Magno Phillip MD Consult Discharge Plan - Plan Referrals: Ubaldo Herron DO [Resident] - <Milana Hogan - Last Filed: 08/14/16 17:34> Date of Encounter: 08/14/16 Time of Encounter: 13:00 - Time Spent With Patient Total time spent is greater than 50% in coordination of care (as documented) at patient's floor/unit and/or counseling patient: GI History of Present Illness - Data of Consult Requesting Physician: Wood Benton MD - Consult Narrative History of present illness: Mr. Fair is a 61 year old male - Constitutional Vitals: Temp Pulse Resp BP Pulse Ox 97.7 F 82 14 124/86 93 08/14/16 16:00 08/14/16 16:00 08/14/16 16:00 08/14/16 16:00 08/14/16 16:00 Results - Labs CBC & Chem 7: 08/14/16 09:59 08/14/16 09:59 Labs: Last Result Calcium 8.2 mg/dL (8.6-10.8) L 08/14/16 09:59 Entire Visit Hgb 12.3 g/dL (12.9-16.9) L 08/14/16 09:59 Hct 36.6 % (37.5-50.1) L 08/14/16 09:59 PT 18.7 Seconds (9.4-12.1) H 08/14/16 09:59 Total Bilirubin 7.2 mg/dL (0.2-1.2) H 08/14/16 12:38 AST 811 Units/L (5-34) H 08/14/16 12:38 ALT 529 Units/L (0-55) H 08/14/16 12:38 Lipase 6 Units/L (8-78) L 08/13/16 20:10 Carcinoembryonic Ag 4.3 ng/mL (0-5.0) 08/14/16 09:59 - ABG ABG results: PT/INR, D-dimer PT 18.7 Seconds (9.4-12.1) H 08/14/16 09:59 - Impressions Impressions Chest CT 08/14/16 10:30 IMPRESSION: 1. Centrilobular and paraseptal emphysema. 2. There are areas of primarily subpleural interstitial thickening noted in the lungs with a slight lower lobe predominance. This is compatible with underlying interstitial lung disease. 3. No suspicious pulmonary nodules or parenchymal lung infiltrates. 4. Atherosclerotic disease. 5. Intrahepatic biliary ductal dilatation, stable. D/ / 08/14/2016 11:20:57 Magno Phillip MD / mauricio Interpreting Provider: Magno Phillip MD - Attending Attestation I examined this patient and my medical decision-making was reviewed with the INSTRUCTOR OF EDUCATION/PA/Advanced Practice Nurse/Resident Physician. I agree with the documented findings, disposition and treatment plan as described except to the extent set forth below. AbNormal LFTs with dilated CBD rule out CBD stone. EUS first and if abnormal then we will do an ERCP
[2016-08-14] MEDS ORDERED: Ondansetron 4 MG/2 ML VIAL IVP ONE (12:44)
[2016-08-14] MEDS ORDERED: *HR* Succinylcholine 200 MG/10 ML VIAL IVP ONE (12:44)
[2016-08-14] MEDS ORDERED: *HR* Propofol 200 MG/20 ML VIAL IVP ONE (12:44)
[2016-08-14] MEDS ORDERED: Lidocaine -MPF 2% 5 ML VIAL INFILT ONE (12:44)
[2016-08-14] MEDS ORDERED: Lidocaine -MPF 4% 5 ML AMPUL TP ONE (12:44)
--- NOTE | 2016-08-14 12:54 | Anesthesia Evaluation PreOp ---
<Petey Bergerontrisha Prater - Last Filed: 08/14/16 13:02> Date of Encounter: 08/14/16 Time of Encounter: 12:51 - Past History Planned Operation: EUS/ERCP re: obstructive choledocholithiasis Cardiac History: Denies any Significant Hx Pulmonary History: Smoker, Asthma, COPD (maintained on Albuterol, ATrovent, Asmanex [Mometasone]. Moderated Obstructive Airway dz per Spirometry/PFTs 07/2016 ) Other Medical History: Other (Acute cholestatic jaundice this hospitalization.) Anesthesia History: No Prior Anesthetic Complications, Past Anesthesia Alcohol Use: none, unknown Drug use: none, opiates, IVDU, other (OPANA) Medications and Allergies No Known Home Drugs 08/14/16 [History] Allergies No Known Allergies Allergy (Verified 03/10/16 14:27) - Meds/Allergy Pre-op Review Medications Reviewed: Yes Allergies Reviewed: Yes Beta Blockers on Current Med List: No Anesthesia Results - Labs 08/14/16 09:59 08/14/16 09:59 Laboratory Tests 08/13/16 08/14/16 08/14/16 20:10 09:59 09:59 PT 18.7 H INR 1.7 Est GFR (Non-Af Amer) > 60 Direct Bilirubin 5.0 H Indirect Bilirubin 1.2 AST 975 H ALT 650 H Alkaline Phosphatase 253 H Laboratory Results WBC 8.1 K/mcL (4.3-11.1) 08/14/16 09:59 RBC 4.37 M/mcL (4.19-5.50) 08/14/16 09:59 Hgb 12.3 g/dL (12.9-16.9) L 08/14/16 09:59 Hct 36.6 % (37.5-50.1) L 08/14/16 09:59 MCV 83.8 fL (83.0-100.0) 08/14/16 09:59 MCH 28.1 pg (28.0-33.3) 08/14/16 09:59 MCHC 33.6 g/dL (31.6-35.5) 08/14/16 09:59 RDW 15.5 % (11.5-14.5) H 08/14/16 09:59 Plt Count 309 K/mcL (140-400) 08/14/16 09:59 MPV 10.4 fL (9.4-12.4) 08/14/16 09:59 Immature Gran % 0.4 % (0-4) 08/14/16 09:59 Seg Neutrophils % 63.9 % 08/14/16 09:59 Lymphocytes % 15.9 % 08/14/16 09:59 Monocytes % 16.0 % 08/14/16 09:59 Eosinophils % 3.2 % 08/14/16 09:59 Basophils % 0.6 % 08/14/16 09:59 Neutrophils # 5.2 K/mcL (1.6-8.9) 08/14/16 09:59 Lymphocytes # 1.3 K/mcL (0.6-4.6) 08/14/16 09:59 Monocytes # 1.3 K/mcL (0.0-1.3) 08/14/16 09:59 Eosinophils # 0.3 K/mcL (0.0-0.6) 08/14/16 09:59 Basophils # 0.1 K/mcL (0.0-0.2) 08/14/16 09:59 PT 18.7 Seconds (9.4-12.1) H 08/14/16 09:59 INR 1.7 08/14/16 09:59 APTT 33.9 Seconds (26.0-36.0) 08/14/16 09:59 Sodium 134 mEq/L (136-145) L 08/14/16 09:59 Potassium 3.9 mEq/L (3.5-4.5) 08/14/16 09:59 Chloride 100 mEq/L (98-109) 08/14/16 09:59 Carbon Dioxide 25 mEq/L (19-29) 08/14/16 09:59 BUN 5 mg/dL (8-26) L 08/14/16 09:59 Creatinine 0.57 mg/dL (0.72-1.25) L 08/14/16 09:59 Est GFR ( Amer) > 60 (> 60) 08/14/16 09:59 Est GFR (Non-Af Amer) > 60 (> 60) 08/14/16 09:59 BUN/Creatinine Ratio 9 (6-26) 08/14/16 09:59 Glucose 93 mg/dL (70-99) 08/14/16 09:59 POC Glucose 99 (58-89) H 08/14/16 11:02 Calculated Osmolality 275 (280-300) L 08/14/16 09:59 Lactic Acid 1.2 mmol/L (0.5-2.2) 08/13/16 20:10 Calcium 8.2 mg/dL (8.6-10.8) L 08/14/16 09:59 Phosphorus 2.6 mg/dL (2.3-4.7) 08/14/16 09:59 Magnesium 1.5 mg/dL (1.6-2.6) L 08/14/16 09:59 Total Bilirubin 6.2 mg/dL (0.2-1.2) H 08/13/16 20:10 Direct Bilirubin 5.0 mg/dL (0.0-0.5) H 08/13/16 20:10 Indirect Bilirubin 1.2 mg/dL (0.0-1.2) 08/13/16 20:10 AST 975 Units/L (5-34) H 08/13/16 20:10 ALT 650 Units/L (0-55) H 08/13/16 20:10 Alkaline Phosphatase 253 Units/L (38-126) H 08/13/16 20:10 Serum Total Protein 7.3 g/dL (6.0-8.3) 08/13/16 20:10 Albumin 3.1 g/dL (3.5-5.0) L 08/13/16 20:10 Globulin 4.2 g/dL (2.4-3.5) H 08/13/16 20:10 Albumin/Globulin Ratio 0.7 (1.1-2.2) L 08/13/16 20:10 Lipase 6 Units/L (8-78) L 08/13/16 20:10 Urine Color Red (Yellow) A 08/13/16 20:46 Urine Clarity Turbid (Clear) A 08/13/16 20:46 Urine pH 5.5 pH Units (5.0-8.0) 08/13/16 20:46 Ur Specific [place] 1.030 (1.010-1.025) H 08/13/16 20:46 Urine Protein 30 mg/dL (Neg-Trace) H 08/13/16 20:46 Urine Glucose (UA) Normal mg/dL (Normal) 08/13/16 20:46 Urine Ketones Trace mg/dL (Negative) H 08/13/16 20:46 Urine Blood Negative (Negative) 08/13/16 20:46 Urine Nitrite Positive (Negative) A 08/13/16 20:46 Urine Bilirubin Large (Negative) H 08/13/16 20:46 Urine Urobilinogen 4.0 mg/dL (Normal) H 08/13/16 20:46 Ur Leukocyte Esterase Small (Negative) H 08/13/16 20:46 Urine Microscopic RBC 5-15 per hpf (0-3) H 08/13/16 20:46 Urine Microscopic WBC 5-15 per hpf (0-3) H 08/13/16 20:46 Ur Squamous Epith Cells Moderate per lpf (None-Few) H 08/13/16 20:46 Urine Bacteria BRIM MOLDER 08/13/16 20:46 Hyaline Casts Few per lpf (None-Few) 08/13/16 20:46 Urine Mucus Few (Few) 08/13/16 20:46 Ur Culture Indicated? YES (NO) A 08/13/16 20:46 Impressions Abdomen/Pelvis CT 08/13/16 22:30 IMPRESSION: Intrahepatic and extrahepatic biliary ductal dilation of uncertain etiology. Recommend correlation with liver function tests. ERCP or MRCP are recommended for further evaluation. Interstitial prominence at both lung bases. High-resolution chest CT is recommended for further evaluation. Small supraumbilical hernia with soft tissue stranding but no evidence for contained bowel D/ / Marvin Feliciano MD / Marvin Feliciano MD Interpreting Provider: Marvin Feliciano MD Chest CT 08/14/16 10:30 IMPRESSION: 1. Centrilobular and paraseptal emphysema. 2. There are areas of primarily subpleural interstitial thickening noted in the lungs with a slight lower lobe predominance. This is compatible with underlying interstitial lung disease. 3. No suspicious pulmonary nodules or parenchymal lung infiltrates. 4. Atherosclerotic disease. 5. Intrahepatic biliary ductal dilatation, stable. D/ / 08/14/2016 11:20:57 Magno Phillip MD / kiana Interpreting Provider: Magno Phillip MD Anesthesia Exam O2 Sat Height 1.7 m Height 1.7 m Weight 58.786 kg Weight 63.503 kg O2 Sat by Pulse Oximetry 94 O2 Sat by Pulse Oximetry 96 O2 Sat by Pulse Oximetry 96 O2 Sat by Pulse Oximetry 93 O2 Sat by Pulse Oximetry 97 O2 Sat by Pulse Oximetry 94 O2 Sat by Pulse Oximetry 95 O2 Sat by Pulse Oximetry 96 O2 Sat by Pulse Oximetry 96 O2 Sat by Pulse Oximetry 92 O2 Sat by Pulse Oximetry 94 Vital Signs Temp Pulse Resp BP Pulse Ox 98.4 F 101 14 121/83 94 08/13/16 17:48 08/13/16 17:48 08/13/16 17:48 08/13/16 17:48 08/13/16 17:48 Height: 5'7" Weight: 129# BMI = 20 NPO (# of Hours): MNoc - HEENT Pupil (Motor): Pupils equal, EOMI Mallampati: III Teeth: Poor dentition Oral Opening: Greater than 3 - LICENSED ACUPUNCTURIST LOC: Oriented LICENSED ACUPUNCTURIST Motor: Normal RUE, Normal LUE, Normal RLE, Normal LLE, Normal Face LICENSED ACUPUNCTURIST Sensory: Normal: RUE, LUE, RLE, LLE, Face - Cardiac Rhythm: Regular Murmur: None - Pulmonary Breath Sounds: bilateral Clear Respiratory Effort: Symmetrical Anesthesia Assess/Plan ASA Score: 3 (COPD, Smoker, Asthma) Modified Sycamore Scale for Level of Consciousness: Cooperative, oriented, and tranquil Anesthetic Plan: General Monitoring Plan: Standard Monitors Recovery Plan: PACU Anes Supervising Prov Stmt: Pt seen/evaluated, R&B Discussed, questions answered and consent obtained. - MD Ayah <Joao Garcia - Last Filed: 08/14/16 13:38> Date of Encounter: 08/14/16 - Past History Drug use: other (uses [facility] off the street) Anesthesia Results - Labs 08/14/16 09:59 08/14/16 09:59 Anesthesia Exam - HEENT Pupil (Motor): EOMI Mallampati: III Teeth: Edentulous Oral Opening: Greater than 3 - LICENSED ACUPUNCTURIST LOC: Oriented LICENSED ACUPUNCTURIST Motor: Normal RUE, Normal LUE, Normal RLE, Normal LLE, Normal Face LICENSED ACUPUNCTURIST Sensory: Normal: RUE, LUE, RLE, LLE, Face - Cardiac Rhythm: Regular Murmur: None - Pulmonary Breath Sounds: bilateral Clear Respiratory Effort: Symmetrical Anesthesia Assess/Plan ASA Score: 3 Modified Petr Scale for Level of Consciousness: Cooperative, oriented, and tranquil Anesthetic Plan: General Monitoring Plan: Standard Monitors Recovery Plan: PACU (Discussed risks of GA, questions answered and agrees to proceed.)
[2016-08-14 12:55] LABS: Carcinoembryonic Antigen 4.3 ng/mL (0-5.0)
[2016-08-14 12:58] LABS: Albumin 2.6 g/dL (3.5-5.0); Albumin/Globulin Ratio 0.7 (1.1-2.2); Bilirubin,Direct 5.8 mg/dL (0.0-0.5); Bilirubin,Indirect 1.4 mg/dL (0.0-1.2); Bilirubin,Total 7.2 mg/dL (0.2-1.2); Globulin 3.6 g/dL (2.4-3.5); Total Protein 6.2 g/dL (6.0-8.3)
[2016-08-14] MEDS ORDERED: *HR* FentaNYL (PF) 100 MCG/2 ML VIAL ONE (13:36)
[2016-08-14] MEDS ORDERED: Indomethacin 50 MG SUPP.RECT RC ONE (13:39)
--- NOTE | 2016-08-14 13:46 | Event Note ---
<Jefferson Douglas - Last Filed: 08/14/16 13:26> Date of Encounter: 08/14/16 Time of Encounter: 13:26 Mr. Fair, 61 yo M seen at patient bedside this am. He complains of abdominal pain more so in the umbilical and RUQ regions. He said the worse of his symptoms have been in the last 24 hours. He also complains of itching. He says he has had an umbilical hernia for roughly 1.5 years but has never had an incarcerated hernia. He has difficulty laying flat from the pain. He admits to IV drug use but denies hx of hepatitis or HIV. Vitals: Stable. Laboratory results reviewed. Physical: Thin 61 male with scleral ictus and jaundice. RRR, CTAB. abdomen is thin, flat with small superior umbilical hernia that is tender to palpation. he also has pain to palpation of the RUQ. No abdominal erythema or edema. Plan: 1. Obstructive jaundice: Patient has icterus, jaundice, RUQ. Hx of gallstones. CT demonstrates billiary duct dilatation and hepatic duct dilatation. Lab results demonstrate significantly elevated AST, ALT, Alk. phos. direct Bilirubin and bilirubin in the urine. Billiary tree outlet obstruction suspected , cause may be gall stone vs. mass obstruction. - I spoke to Dr. Hogan with gastroenterology who will perform an ERCP. - CEA- 19 pending. - Hepatitis panel pending 2. Umbilical hernia: Does not appear to be incarcerated upon examination. Will continue to monitor as he is having pain in his abdomen around this site but also in the RUQ. - Lactic acid ordered 3. COPD: Continue breathing treatments. Condition stable. Nicotine patch. <Wood Benton - Last Filed: 08/14/16 18:25> Date of Encounter: 08/14/16 I examined this patient and my medical decision-making was reviewed with the Resident Physician, Dr Jefferson Douglas. I agree with the documented findings, disposition and treatment plan as described except to the extent set forth below. The patient has significant obstructive jaundice. On exam he appears icteric. Heart is regular S1-S2. Abdomen is soft nontender nondistended with normoactive bowel sounds. Due to his significant jaundice he will need workup and treatment in the hospital for at least 3 days and therefore requires inpatient hospitalization. Risks if not treated in the hospital include sepsis, liver failure,, and . For past medical history family history (patient's father suffered with colon cancer) social history and review of systems please refer to the H&P dictated today at this institution. There are no changes or updates.
[2016-08-14] MEDS ORDERED: Ringers Solution, Lactated 1,000 ML IVC SCH (14:30)
[2016-08-14 14:37] LABS: Hepatitis B Surface Antigen Nonreactive (Nonreactive)
--- NOTE | 2016-08-14 15:14 | Anesthesia Evaluation Post Op ---
Date of Encounter: 08/14/16 Time of Encounter: 15:13 - Vital Signs Vital Signs: Vital Signs/O2 Sat, Most Current Temp Pulse Resp BP Pulse Ox 98.3 F 83 16 117/82 94 08/14/16 14:46 08/14/16 15:06 08/14/16 15:06 08/14/16 15:06 08/14/16 15:06 - Lungs Lungs: Clear Ascult./Percussion - Airway Airway: Non-obstructed - Cardiovascular Regular Rate - Mental Status Mental Status: Alert & Oriented, Answers Appropriately - Pain Pain Scale: 0 Pain Scale used: Numeric (1 - 10) - Nausea Vomiting Nausea Vomiting: Not Present - Hydration Hydration: Ice chips, Has not voided - Discharge PostOp Status: Transfer Patient to floor
[2016-08-14] MEDS: Magnesium Sulfate 2 GM in D5% in Water 100 ML IVPB ONE ×2 (19:46→20:11)
[2016-08-14] MEDS: Thiamine (B-1) 100 MG, Folic Acid 1 MG, MVI, adult with vitamin K 10 ML in 0.9 % Sodi... IVPB SCH (22:50)
[2016-08-15] MEDS: Ringers Solution, Lactated 1,000 ML IVC SCH ×5 (02:00→23:47)
[2016-08-15 04:46] LABS: INR 1.7; Prothrombin Time 18.3 Seconds (9.4-12.1)
[2016-08-15 04:54] LABS: Alanine Aminotransferase 456 Units/L (0-55); Albumin 2.4 g/dL (3.5-5.0); Albumin/Globulin Ratio 0.6 (1.1-2.2); Alkaline Phosphatase 205 Units/L (38-126); Aspartate Amino Transferase 580 Units/L (5-34); BUN/Creatinine Ratio 8 (6-26); Bilirubin,Indirect 1.6 mg/dL (0.0-1.2); Bilirubin,Total 6.3 mg/dL (0.2-1.2); Carbon Dioxide 29 mEq/L (19-29); Chloride 103 mEq/L (98-109); Chol/HDL Ratio 15.5 (0-4.9); Cholesterol 93 mg/dL (< 200); Globulin 3.7 g/dL (2.4-3.5); Glucose 151 mg/dL (70-99); HDL Cholesterol 6 mg/dL (40-59); LDL Cholesterol,Calculated 63 mg/dL (0-99); Magnesium 2.1 mg/dL (1.6-2.6); Osmolality,Calculated 282 (280-300); Potassium 4.3 mEq/L (3.5-4.5); Sodium 136 mEq/L (136-145); Total Protein 6.1 g/dL (6.0-8.3); Triglycerides 118 mg/dL (< 150); eGFR For African Americans > 60 (> 60); eGFR For Non-African Americans > 60 (> 60)
[2016-08-15 04:56] LABS: Bilirubin,Urine Small (Negative); Blood,Urine Negative (Negative); Color,Urine Yellow (Yellow); Glucose,Urine (UA) Normal (Normal); Ketones,Urine Negative (Negative); Leukocyte Esterase,Urine Negative (Negative); Nitrite,Urine Negative (Negative); PH,Urine 6.5 pH Units (5.0-8.0); Protein,Urine Negative (Neg-Trace)
[2016-08-15 04:59] LABS: Amphetamine Screen,Urine Negative ng/mL (Cutoff=1000); Barbiturate Screen,Urine Negative ng/mL (Cutoff=200); Benzodiazepines Screen,Urine Negative ng/mL (Cutoff=200); Cannabinoid Screen,Urine Negative ng/mL (Cutoff = 50); Cocaine Screen,Urine Negative ng/mL (Cutoff= 300); Hyaline Casts,Urine None Seen per lpf (None-Few); Opiate Screen,Urine Negative ng/mL (Cutoff=300); Phencyclidine Screen,Urine Negative ng/mL (Cutoff=25); RBC,Urine 0-3 per hpf (0-3); Squamous Epithelial Cell,Urine None Seen per lpf (None-Few)
[2016-08-15 05:00] LABS: Bilirubin,Direct 4.7 mg/dL (0.0-0.5); Blood Urea Nitrogen 5 mg/dL (8-26)
[2016-08-15 05:02] LABS: Clarity,Urine Slightly Hazy (Clear)
[2016-08-15 05:14] LABS: Bacteria,Urine Few per hpf (None-Few)
[2016-08-15] MEDS: *HR* Enoxaparin 40 MG/0.4 ML SYRINGE SQ SCH (05:23)
[2016-08-15] MEDS: *HR* HYDROmorphone (PF) 1 MG/ML SYRINGE IVP PRN ×4 (05:24→21:27)
[2016-08-15] MEDS: Pantoprazole 40 MG VIAL IVP SCH ×2 (08:10→21:14)
--- NOTE | 2016-08-15 10:33 | Gastroenterology Progress Note ---
<WoodsRohan watts Katherin - Last Filed: 08/15/16 10:31> Date of Encounter: 08/15/16 Time of Encounter: 10:20 - Assessment and plan (1) Obstructive jaundice Status: Acute Assessment and plan: Improved. CT A/P showed intra/extrahepatic biliary dilation. LFT improved today. Hepatitis profile and CA 19-9 pending. EUS completed 08/14 was negative for abnormality in the CBD or PD. Continue to monitor LFTs. (2) Elevated liver enzymes Status: Acute Assessment and plan: Improving. - Time Spent With Patient Total time spent is greater than 50% in coordination of care (as documented) at patient's floor/unit and/or counseling patient: - Subjective Interval history: Pt resting in bed and states he feels well. He is without acute complaint, and is asking to go home. - Constitutional Vitals: Temp Pulse Resp BP Pulse Ox 98.3 F 77 16 106/65 92 08/15/16 08:57 08/15/16 08:57 08/15/16 08:57 08/15/16 08:57 08/15/16 08:57 General appearance: Present: cooperative, A&O X 3, no acute distress, answers questions appropriately - Head Head exam: Present: atraumatic, normocephalic - Eye Eye exam: Present: normal appearance, sclera anicteric - ENT ENT exam: Present: mucous membranes moist - Neck Neck exam general surgery: Present: normal inspection, trachea midline - Respiratory Respiratory exam: Present: decreased breath sounds, CTAB. Absent: rales, rhonchi - Cardiovascular Cardiovascular exam: Present: RRR, +S1, +S2 - GI/Abdominal GI/Abdominal exam: Present: soft, tenderness (RUQ tenderness with palpation), no peritoneal signs. Absent: distended, firm, guarding - Rectal Rectal exam: Present: deferred - Extremities Exam Extremities exam: Present: warm - Neurological Exam Neurological exam: Present: no focal deficits - Psychiatric Psychiatric exam: Present: normal affect, normal mood - Skin Skin exam: Present: dry, intact, normal color, warm Results - Labs CBC & Chem 7: 08/14/16 09:59 08/15/16 03:59 Labs: Last Result Calcium 8.0 mg/dL (8.6-10.8) L 08/15/16 03:59 Triglycerides 118 mg/dL (< 150) 08/15/16 03:59 Urine Opiates Screen Negative ng/mL ([id number]) 08/15/16 04:35 Entire Visit Hgb 12.3 g/dL (12.9-16.9) L 08/14/16 09:59 Hct 36.6 % (37.5-50.1) L 08/14/16 09:59 PT 18.3 Seconds (9.4-12.1) H 08/15/16 03:59 Total Bilirubin 6.3 mg/dL (0.2-1.2) H 08/15/16 03:59 AST 580 Units/L (5-34) H 08/15/16 03:59 ALT 456 Units/L (0-55) H 08/15/16 03:59 Lipase 6 Units/L (8-78) L 08/13/16 20:10 Carcinoembryonic Ag 4.3 ng/mL (0-5.0) 08/14/16 09:59 - ABG ABG results: PT/INR, D-dimer PT 18.3 Seconds (9.4-12.1) H 08/15/16 03:59 - Impressions Impressions Chest CT 08/14/16 10:30 IMPRESSION: 1. Centrilobular and paraseptal emphysema. 2. There are areas of primarily subpleural interstitial thickening noted in the lungs with a slight lower lobe predominance. This is compatible with underlying interstitial lung disease. 3. No suspicious pulmonary nodules or parenchymal lung infiltrates. 4. Atherosclerotic disease. 5. Intrahepatic biliary ductal dilatation, stable. D/ / 08/14/2016 11:20:57 Magno Phillip MD / mauricio Interpreting Provider: Magno Phillip MD Abdomen MRI 08/14/16 15:45 IMPRESSION: 1. No evidence of choledocholithiasis. Borderline dilated common bile duct. 2. There is a 2.0 x 1.4 cm lobular multiloculated cystic structure adjacent to the gallbladder fundus of indeterminate cause. 3. No gallstones. No evidence of cholecystitis. D/ / 08/14/2016 20:08:37 Reza Rosario MD / noni Interpreting Provider: Reza Rosario MD Consult Discharge Plan - Plan Instructions: Chronic Obstructive Pulmonary Disease (DC) Referrals: Ethan Rios DO [Resident] - 10/15/16 3:00 pm (appointment already scheduled prior to hospital visit.) Ubaldo Herron DO [Resident] - Jefferson Douglas DO [Resident] - Prescriptions: OxyCODONE Immed Rel [Roxicodone 5 MG] 5 mg PO Q6HR PRN #30 tablet PRN Reason: Pain <Gul,Milana - Last Filed: 08/18/16 14:07> Date of Encounter: 08/15/16 Time of Encounter: 12:00 - Time Spent With Patient Total time spent is greater than 50% in coordination of care (as documented) at patient's floor/unit and/or counseling patient: - Constitutional Vitals: Temp Pulse Resp BP Pulse Ox 97.5 F L 76 18 136/76 96 08/16/16 11:54 08/16/16 11:54 08/16/16 11:54 08/16/16 11:54 08/16/16 11:54 Results - Labs CBC & Chem 7: 08/16/16 03:17 08/16/16 03:17 Labs: Last Result Calcium 7.9 mg/dL (8.6-10.8) L 08/16/16 03:17 Triglycerides 118 mg/dL (< 150) 08/15/16 03:59 Urine Opiates Screen Negative ng/mL ([id number]) 08/15/16 04:35 Entire Visit Hgb 10.8 g/dL (12.9-16.9) L D 08/16/16 03:17 Hct 31.8 % (37.5-50.1) L 08/16/16 03:17 PT 18.3 Seconds (9.4-12.1) H 08/15/16 03:59 Total Bilirubin 5.5 mg/dL (0.2-1.2) H 08/16/16 03:17 AST 548 Units/L (5-34) H 08/16/16 03:17 ALT 417 Units/L (0-55) H 08/16/16 03:17 Lipase 6 Units/L (8-78) L 08/13/16 20:10 Carcinoembryonic Ag 4.3 ng/mL (0-5.0) 08/14/16 09:59 CA 19-9 Antigen 84 U/mL (0-37) H 08/14/16 09:59 - ABG ABG results: PT/INR, D-dimer PT 18.3 Seconds (9.4-12.1) H 08/15/16 03:59
[2016-08-15 11:11] LABS: Hepatitis A Antibody IgM Nonreactive (Nonreactive)
--- NOTE | 2016-08-15 15:23 | Internal Med Progress Note ---
<Jefferson Douglas - Last Filed: 08/15/16 16:42> Date of Encounter: 08/15/16 Time of Encounter: 09:00 - Assessment and plan (1) Hepatitis Current Visit: Yes Status: Acute Assessment and plan: Patient has icterus, jaundice, RUQ. Hx of gallstones. CT demonstrates billiary duct dilatation and hepatic duct dilatation. Lab results demonstrate significantly elevated AST, ALT, Alk. phos. direct Bilirubin and bilirubin in the urine. MRCP, EUS was negative for obstruction. - Suspect acute hepatitis. - CA-19-9 antigen elevated 84 without findings of pancreatic mass. This should be follow up on in the outpatient setting. - Hepatitis C antigen reactive, hepatitis B [place] area. - Hepatitis B core antigen ordered, hepatitis C Quance with reflex genotype ordered. - Repeat labs in the morning. (2) IVDU (intravenous drug user) Current Visit: Yes Status: Acute Assessment and plan: Patient is a current IV drug user who injects Opana. UDS collected yesterday was negative. - Patient's IV drug use puts him at high risk for blood-borne pathogens. (3) Umbilical hernia Current Visit: Yes Status: Acute Assessment and plan: Patient has known umbilical hernia, patient had some tenderness to palpation but this may be from his hepatitis. His umbilical hernia is depressible. No findings of incarceration. Qualifiers: Qualified Code(s): K42.9 - Umbilical hernia without obstruction or gangrene (4) COPD (chronic obstructive pulmonary disease) Current Visit: Yes Status: Acute Assessment and plan: Known history of COPD, continue home breathing treatments. Qualifiers: Qualified Code(s): J44.9 - Chronic obstructive pulmonary disease, unspecified - Subjective Interval history: Mr. Fair has been seen and evaluated the patient bedside. He continues to have abdominal pain with very little improvement. He denies any nausea, vomiting, diarrhea, constipation or blood per rectum or urine. He denies any other concerns at this time. - Constitutional Vitals: Temp Pulse Resp BP Pulse Ox 97.9 F 77 14 100/69 92 08/15/16 12:33 08/15/16 12:33 08/15/16 12:33 08/15/16 12:33 08/15/16 12:33 General appearance: Present: cooperative, mild distress, A&O X 3, answers questions appropriately - Head Head exam: Present: atraumatic, normocephalic - Eye Eye exam: Present: scleral icterus Pupils: Present: PERRL - ENT ENT exam: Present: mucous membranes moist - Neck Neck exam general surgery: Present: supple, trachea midline. Absent: lymphadenopathy - Respiratory Respiratory exam: Present: CTAB. Absent: accessory muscle use, rales, rhonchi, wheezes - Cardiovascular Cardiovascular exam: Present: RRR, +S1, +S2. Absent: diastolic murmur, gallop, rubs, systolic murmur - GI/Abdominal GI/Abdominal exam: Present: normal bowel sounds, soft, tenderness, no peritoneal signs. Absent: distended Additional comments: Tenderness in the right upper quadrant. Superior umbilical hernia soft, no erythema or edema, depressible. - Extremities Exam Extremities exam: Present: warm, radial pulses palpable and symetrical. Absent : calf tenderness, cyanotic, pedal edema - Neurological Exam Neurological exam: Present: alert, oriented X3, no focal deficits. Absent: pronater drift, facial droop, speech deficit - Psychiatric Psychiatric exam: Present: normal affect, normal mood Internal Medicine: Result - Labs CBC & Chem 7: 08/14/16 09:59 08/15/16 03:59 Labs: BMP 08/15/16 03:59 Sodium 136 Potassium 4.3 Chloride 103 Carbon Dioxide 29 BUN 5 L Creatinine 0.64 L Glucose 151 H Calcium 8.0 L Liver Function 08/15/16 Range/Units 03:59 Total Bilirubin 6.3 H (0.2-1.2) mg/dL Direct Bilirubin 4.7 H D (0.0-0.5) mg/dL AST 580 H (5-34) Units/L ALT 456 H (0-55) Units/L Alkaline Phosphatase 205 H (38-126) Units/L Albumin 2.4 L (3.5-5.0) g/dL Urine 08/15/16 Range/Units 04:35 Urine Color Yellow (Yellow) Urine Clarity Slightly Hazy (Clear) Urine pH 6.5 (5.0-8.0) pH Units Ur Specific [place] 1.010 (1.010-1.025) Urine Protein Negative (Neg-Trace) mg/dL Urine Glucose (UA) Normal (Normal) mg/dL - ABG Interpretation ABG results: PT/INR, D-dimer PT 18.3 Seconds (9.4-12.1) H 08/15/16 03:59 - Impressions Impressions Abdomen MRI 08/14/16 15:45 IMPRESSION: 1. No evidence of choledocholithiasis. Borderline dilated common bile duct. 2. There is a 2.0 x 1.4 cm lobular multiloculated cystic structure adjacent to the gallbladder fundus of indeterminate cause. 3. No gallstones. No evidence of cholecystitis. D/ / 08/14/2016 20:08:37 Reza Rosario MD / noni Interpreting Provider: Reza Rosario MD Consult Discharge Plan - Plan Referrals: Ubaldo Herron DO [Resident] - <Wood Benton - Last Filed: 08/15/16 20:04> Date of Encounter: 08/15/16 - Constitutional Vitals: Temp Pulse Resp BP Pulse Ox 97.8 F 83 14 102/64 96 08/15/16 19:20 08/15/16 19:20 08/15/16 19:20 08/15/16 19:20 08/15/16 19:20 Internal Medicine: Result - Labs CBC & Chem 7: 08/14/16 09:59 08/15/16 03:59 Labs: BMP 08/15/16 03:59 Sodium 136 Potassium 4.3 Chloride 103 Carbon Dioxide 29 BUN 5 L Creatinine 0.64 L Glucose 151 H Calcium 8.0 L Liver Function 08/15/16 Range/Units 03:59 Total Bilirubin 6.3 H (0.2-1.2) mg/dL Direct Bilirubin 4.7 H D (0.0-0.5) mg/dL AST 580 H (5-34) Units/L ALT 456 H (0-55) Units/L Alkaline Phosphatase 205 H (38-126) Units/L Albumin 2.4 L (3.5-5.0) g/dL Urine 08/15/16 Range/Units 04:35 Urine Color Yellow (Yellow) Urine Clarity Slightly Hazy (Clear) Urine pH 6.5 (5.0-8.0) pH Units Ur Specific [place] 1.010 (1.010-1.025) Urine Protein Negative (Neg-Trace) mg/dL Urine Glucose (UA) Normal (Normal) mg/dL - ABG Interpretation ABG results: PT/INR, D-dimer PT 18.3 Seconds (9.4-12.1) H 08/15/16 03:59 - Impressions Impressions Abdomen MRI 08/14/16 15:45 IMPRESSION: 1. No evidence of choledocholithiasis. Borderline dilated common bile duct. 2. There is a 2.0 x 1.4 cm lobular multiloculated cystic structure adjacent to the gallbladder fundus of indeterminate cause. 3. No gallstones. No evidence of cholecystitis. D/ / 08/14/2016 20:08:37 Reza Rosario MD / noni Interpreting Provider: Reza Rosario MD - Attending Attestation I examined this patient and my medical decision-making was reviewed with the Resident Physician, Dr. Douglas. I agree with the documented findings, disposition and treatment plan as described except to the extent set forth below. Patient is positive for hep C and indeterminate for hep B. We will send hep C viral titers. We will send hepatitis B core antigen IgG G, viral load, hepatitis B E antigen. Monitor LFTs daily. I discussed the case with GI. There is no evidence of obstructive jaundice. No further invasive workup is needed.
[2016-08-15 15:38] LABS: Hepatitis B Core IgM Grayzone (Nonreactive); Hepatitis C Virus Antibody Reactive (Nonreactive)
[2016-08-15] MEDS: Thiamine (B-1) 100 MG, Folic Acid 1 MG, MVI, adult with vitamin K 10 ML in 0.9 % Sodi... IVPB SCH (18:48)
[2016-08-15] MEDS: *HR* OxyCODONE Immed Rel 5 MG TABLET PO PRN (18:53)
[2016-08-16] MEDS: Ringers Solution, Lactated 1,000 ML IVC SCH ×2 (00:04→04:27)
[2016-08-16] MEDS: *HR* HYDROmorphone (PF) 1 MG/ML SYRINGE IVP PRN ×3 (01:39→10:47)
[2016-08-16 03:46] LABS: Hematocrit 31.8 % (37.5-50.1); Hemoglobin 10.8 g/dL (12.9-16.9); Mean Corpuscular Hemoglobin 28.2 pg (28.0-33.3); Mean Platelet Volume 10.7 fL (9.4-12.4); Platelet Count 320 K/mcL (140-400); Red Blood Count 3.83 M/mcL (4.19-5.50); Red Cell Distribution Width 16.1 % (11.5-14.5)
[2016-08-16 03:59] LABS: Alanine Aminotransferase 417 Units/L (0-55); Albumin 2.4 g/dL (3.5-5.0); Albumin/Globulin Ratio 0.8 (1.1-2.2); Alkaline Phosphatase 168 Units/L (38-126); Aspartate Amino Transferase 548 Units/L (5-34); BUN/Creatinine Ratio 9 (6-26); Blood Urea Nitrogen 6 mg/dL (8-26); Calcium 7.9 mg/dL (8.6-10.8); Carbon Dioxide 30 mEq/L (19-29); Chloride 104 mEq/L (98-109); Globulin 3.2 g/dL (2.4-3.5); Glucose 94 mg/dL (70-99); Osmolality,Calculated 283 (280-300); Potassium 3.9 mEq/L (3.5-4.5); Sodium 138 mEq/L (136-145); Total Protein 5.6 g/dL (6.0-8.3); eGFR For African Americans > 60 (> 60); eGFR For Non-African Americans > 60 (> 60)
[2016-08-16 04:02] LABS: Bilirubin,Total 5.5 mg/dL (0.2-1.2)
[2016-08-16] MEDS: *HR* Enoxaparin 40 MG/0.4 ML SYRINGE SQ SCH (06:21)
[2016-08-16] MEDS: Pantoprazole 40 MG VIAL IVP SCH (09:13)
[2016-08-16] MEDS: *HR* OxyCODONE Immed Rel 5 MG TABLET PO PRN (09:14)
[2016-08-16 11:55] VITALS: BP 136/76
--- NOTE | 2016-08-16 13:26 | Discharge Summary ---
Date of Encounter: 08/16/16 Time of Encounter: 13:05 - Discharge Diagnosis (1) Acute viral hepatitis Priority: Primary Status: Acute Qualifiers: Viral hepatitis type: hepatitis C Hepatic coma status: without hepatic coma Qualified Code(s): B17.10 - Acute hepatitis C without hepatic coma (2) Tobacco abuse disorder Priority: Secondary Status: Acute (3) Elevated liver enzymes Priority: Secondary Status: Acute (4) IVDU (intravenous drug user) Priority: Secondary Status: Acute (5) Umbilical hernia Priority: Secondary Status: Acute Qualifiers: Qualified Code(s): K42.9 - Umbilical hernia without obstruction or gangrene (6) COPD (chronic obstructive pulmonary disease) Priority: Secondary Status: Acute Qualifiers: Qualified Code(s): J44.9 - Chronic obstructive pulmonary disease, unspecified - Discharge Medications Home Medications: Docusate [Colace] 100 mg PO BID PRN #0 capsule 08/16/16 [Rx] Allergies/Adverse Reactions: Allergies No Known Allergies Allergy (Verified 03/10/16 14:27) Procedures/tests Complete & Pending: Procedures Performed prior 72 hours Category Date Time Status MR MRCP [MR abdomen wo con] [MR] Stat MRI 08/14/16 15:45 Completed Date of admission: 08/14/16 09:30 Primary care physician: PCP NO - Patient Status Disposition: Home, Self-Care Condition: Fair Functional capacity at discharge: independent ambulation Overall status at discharge: patient is progressing back to baseline - Discharge Instructions Follow Up With: Ubaldo Herron DO [Resident] - Jefferson Douglas DO [Resident] - - Diet and Activity Activity: increase activity as tolerated (No strenuous physical activity. Refrain from sexual activity until advised by PCP) Diet: regular diet Hospital course: Mr. Fair is a 61 year old male with significant health history for COPD/ emphysema, asthma, cholelithiasis, steatohepatitis, nicotine dependency, and intravenous drug abuse. The patient presented to [facility] for evaluation of abdominal pain nausea malaise and fatigue. He noted an abdominal umbilical hernia which has been hurting for the last few days and more generalized abdominal pain.is evaluation in the emergency depa imaging revealed findings concerning for intractable and extrahepatic biliary ductal dilatation. The patient was admitted to the medical service. Gastroenterology was consulted. He had an endoscopic ultrasound done which showed no evidence of cholelithiasis and no significant dilatation of the biliary or pancreatic ducts. Additionally had an MRCP which showed no biliary obstruction. He was treated with conservative measures including IV fluids and IV Protonix and his LFTs trended down daily. He had hepatitis studies which revealed positive hepatitis C antibody and indeterminate hepatitis B core IgM. At this point it is presumed that he has acute hepatitis B with acute or chronic hepatitis C. He was counseled extensively about the avoidance of IV drug use, not sharing needles and safe sex practices. He had an HIV test ordered and the result is pending at this time. Hepatitis B viral load, hepatitis C viral load and hep B E antigen are currently pending. He was advised to quit smoking. He was instructed to following residency clinic in 5-10 days. - Time Spent with Patient Total time spent providing and/or coordinating discharge services: - Constitutional Vitals: Temp Pulse Resp BP Pulse Ox 97.5 F L 76 18 136/76 96 08/16/16 11:54 08/16/16 11:54 08/16/16 11:54 08/16/16 11:54 08/16/16 11:54 General appearance: Present: cooperative, mild distress, A&O X 3, answers questions appropriately - Respiratory Respiratory exam: Present: CTAB. Absent: accessory muscle use, rales, rhonchi, wheezes - Cardiovascular Cardiovascular exam: Present: RRR, +S1, +S2. Absent: diastolic murmur, gallop, rubs, systolic murmur - GI/Abdominal GI/Abdominal exam: Present: normal bowel sounds, soft, no peritoneal signs. Absent: distended, tenderness - Skin Skin exam: Present: dry, intact
[2016-08-19 11:10] LABS: HCV Quant Interpretation DETECTED (Not Detected)
[2016-08-20 17:25] LABS: HBV Quant by PCR <20 IU/mL
[2016-08-21 07:37] LABS: HBV Quant Interpretation NOT DETECTED (Not Detected); HBV Quant Log by PCR <1.3 log IU
[2016-08-21 10:38] LABS: HCV Genotype by Sequencing 3A
[2016-08-24 08:40] LABS: Hepatitis B Core Ab Total NEGATIVE (Negative)
== END 2016-08-16 15:53 | disposition home or self-care (01) ==
LOC: EMEROO 17:31 → 3ANU 17:31
PROVIDERS: ADMIT Internal Medicine; ATTEND Internal Medicine
PROC: ENDOEUS (2016-08-14 13:30)

== ENCOUNTER 2017-01-20 11:52 | Inpatient (IN) ==
[2017-01-20] MEDS ORDERED: 0.9 % Sodium Chloride 1,000 ML IVC ONE (12:31)
[2017-01-20] MEDS ORDERED: *HR* HYDROmorphone (PF) 1 MG/ML SYRINGE IVP ONE ×2 (12:31→15:52)
[2017-01-20] MEDS ORDERED: Ondansetron 4 MG/2 ML VIAL IVP ONE ×2 (12:31→15:52)
--- NOTE | 2017-01-20 12:50 | Emergency Department Note ---
Disposition Clinical Impression: Cholecystitis Abdominal pain Qualifiers: Abdominal location: right upper quadrant Qualified Code(s): R10.11 - Right upper quadrant pain Disposition: Admitted As Inpatient Condition: Fair Referrals: Hunter Salazar DO [Primary Care Provider] - Forms: ED Satisfaction Letter, Work/School Release General Adult HPI - General Chief complaint: ED Abdominal Pain Stated complaint: ABD Pain Time Seen by Provider: 01/20/17 12:10 Source: patient Limitations: no limitations Nursing Notes Reviewed: Yes Vital Signs Reviewed: Yes - History of Present Illness HPI Narrative: Chief complaint is I think I have a hernia, or it is my gallbladder. History this is a 7-year-old gentleman has been complaining of epigastric and right upper quadrant abdominal pain this been going on for almost 3-4 days. He states he has had some problems of the gallbladder hernia in the past. He also sounds like he had a bowel obstruction requiring surgery some years ago. He denies anything new. He said he has not had a big appetite, he has had some diarrhea the last couple days and nausea but no vomiting. Denies any fevers. Denies any back pain or chest pain. Has a history of COPD also he said that is doing okay. No current new medications. No recent surgeries. No trauma to the abdomen. Past medical history reviewed, nurse's notes reviewed, allergies reviewed, medication list reviewed. Pain Scale: 10 - Related Data Home Medications Medication Instructions Recorded Confirmed Albuterol Sulfate [Proair Hfa] 2 puff IH QID PRN 01/20/17 01/20/17 Fluticasone Propionate [Flovent 1 puff IH AD 01/20/17 01/20/17 Hfa] Allergies Allergy/AdvReac Type Severity Reaction Status Date / Time No Known Allergies Allergy Verified 01/20/17 12:01 Review of Systems: Positive for epigastric abdominal pain, nausea, and diarrhea. Denies fevers chest pain back pain. All systems ED: reviewed and negative except as stated. Past Medical History - Past Medical History Medical history: Reports: arthritis, asthma, COPD, other Surgical history: Reports: other Psychiatric history: Reports: no psych history - Social History Smoking Status: Current some day smoker Smokeless Tobacco Status: No Alcohol use: Reports: none Drug use: Reports: unknown, opiates, IV Drug Use, other Physical Exam Temperature is 90.8, pulse is 101, respirations 24, BP 137/78, pulse ox is 99%, weight 61 kg. General: Alert, nontoxic, GCS is 15. Is in pain. HEENT is normocephalic, PERRL, EOMI, neck is supple, no nodes, extremities are dry, Cardiovascular is regular rate and rhythm without rubs or JVD repeat of his heart rate was 90 Lungs are clear to auscultation bilaterally has a small dry cough with deep inspiration but no wheezing. Abdomen is soft, tender in the epigastric and supraumbilical region. Has an old surgical scar around his umbilicus which she said is from his previous surgery. Good bowel sounds no masses no CVA tenderness. Extremities are present 4, good distal pulses and cap refill is brisk Neurologic no acute focal deficits. Alert person place and time GCS is 15. Moves all extremities. - General Limitations: no limitations General appearance: alert, in no apparent distress Course Vital Signs Temperature 98.0 F 01/20/17 12:01 Pulse Rate 101 01/20/17 12:01 Respiratory Rate 24 01/20/17 12:01 Blood Pressure 137/78 01/20/17 12:01 O2 Sat by Pulse Oximetry 99 01/20/17 12:01 Temperature 98.0 F 01/20/17 12:01 Pulse Rate 85 01/20/17 17:18 Respiratory Rate 20 01/20/17 17:18 Blood Pressure 119/81 01/20/17 17:18 O2 Sat by Pulse Oximetry 94 01/20/17 17:18 Oxygen Delivery Oxygen Delivery Room Air Medical Decision Making - [facility] Narrative Medical decision making narrative: No order an EKG, chest x-ray, CT of the abdomen with contrast, laboratory results, pain medications, something for nausea. If he has any diarrhea here we will send a sample to the lab. He is in agreement with this plan. 1238 hrs.: Patient EKG performed shows a sinus rhythm with a rate of 94, does have a sinus arrhythmia, [place] interval is 125, QRS 73, QTc is 389, no signs of ischemia, no old EKG in our system to compare this to. 1452 hrs.: Patient states feeling better no pain at this time. He is hungry and thirsty, will given some ice chips. Waiting on a CT scan to be read. Chest X-Ray 01/20/17 12:30 IMPRESSION: No acute cardiopulmonary process. Findings consistent with COPD and interstitial lung disease, similar to prior. D/ / 01/20/2017 12:58:17 Jermaine Guillaume MD / nicky Interpreting Provider: Jermaine Guillaume MD Abdomen/Pelvis CT 01/20/17 14:00 IMPRESSION: 1. Calcification along the anterior wall of the gallbladder. It is unclear whether this represents a gallstone or focal mural calcification. 2. Multicystic thickening of the gallbladder fundus of unclear etiology. When correlated to prior MRI of August 14, 2016, similar finding was noted. 3. Splenomegaly. 4. Periportal edema. Finding is nonspecific but can be seen in the setting of hepatitis. D/ / 01/20/2017 15:29:02 Trevon Pang MD / meryl Interpreting Provider: Trevon Pang MD 1550 hrs.: Patient still having some pain and is tolerating ice chips. After reviewing his CT scan organ to go ahead and do a ultrasound of his gallbladder. He is in agreement with this plan. Second dose of pain medications ordered. Chest X-Ray 01/20/17 12:30 IMPRESSION: No acute cardiopulmonary process. Findings consistent with COPD and interstitial lung disease, similar to prior. D/ / 01/20/2017 12:58:17 Jermaine Guillaume MD / nicky Interpreting Provider: Jermaine Guillaume MD Abdomen/Pelvis CT 01/20/17 14:00 IMPRESSION: 1. Calcification along the anterior wall of the gallbladder. It is unclear whether this represents a gallstone or focal mural calcification. 2. Multicystic thickening of the gallbladder fundus of unclear etiology. When correlated to prior MRI of August 14, 2016, similar finding was noted. 3. Splenomegaly. 4. Periportal edema. Finding is nonspecific but can be seen in the setting of hepatitis. D/ / 01/20/2017 15:29:02 Trevon Pang MD / meryl Interpreting Provider: Trevon Pang MD Gallbladder Ultrasound 01/20/17 15:47 IMPRESSION: 1. Findings are equivocal for cholecystitis, with gallbladder distention and mild gallbladder wall thickening. However, there are no evident gallstones or pericholecystic fluid. Suggest clinical correlation, and if concerning, consider further characterization with a dedicated nuclear medicine HIDA scan. 2. Nonspecific dilatation of the common bile duct without demonstrable cause. If there is a history of elevated LFTs, consider further characterization with a follow-up MRCP study. 3. Normal sonographic appearance of the liver, right kidney, and pancreas. D/ / Leanrd Vera MD / Lenard Vera MD Interpreting Provider: Lenard Vera MD 1720 hrs.: I am going to look through his old chart as he does not remember who saw him for surgery in the past and then discuss that with them as he will need admission for medicine with surgical consult. He is in agreement with this plan. As he does not feel like he can go home 1815 hrs.: Patient's accepted to the hospitalist service by Dr. Kendall. We will start him on antibiotics, we discussed Cipro and Flagyl he is in agreement, patient's in agreement with this plan. Impressions right upper quadrant pain, acute cholecystitis, transaminitis, elevated total bilirubin. History of cholelithiasis and out an enlarged common bile duct. He may need an MRCP and GI consult in. - Lab Data Result diagrams: 01/20/17 13:13 01/20/17 13:13 Lab Results 01/20/17 01/20/17 01/20/17 Range/Units 12:01 13:13 13:13 WBC 11.4 H (4.3-11.1) K/mcL RBC 4.25 (4.19-5.50) M/mcL Hgb 12.9 (12.9-16.9) g/dL Hct 38.9 (37.5-50.1) % MCV 91.5 (83.0-100.0) fL MCH 30.4 (28.0-33.3) pg MCHC 33.2 (31.6-35.5) g/dL RDW 15.1 H (11.5-14.5) % Plt Count 383 (140-400) K/mcL MPV 9.0 L (9.4-12.4) fL Immature Gran % 1.1 (0-4) % Seg Neutrophils % 63.5 % Lymphocytes % 18.9 % Monocytes % 15.3 % Eosinophils % 0.7 % Basophils % 0.5 % Neutrophils # 7.3 (1.6-8.9) K/mcL Lymphocytes # 2.2 (0.6-4.6) K/mcL Monocytes # 1.7 H (0.0-1.3) K/mcL Eosinophils # 0.1 (0.0-0.6) K/mcL Basophils # 0.1 (0.0-0.2) K/mcL Sodium 131 L (136-145) mEq/L Potassium 3.8 (3.5-4.5) mEq/L Chloride 102 (98-109) mEq/L Carbon Dioxide 24 (19-29) mEq/L BUN 11 (8-26) mg/dL Creatinine 0.69 L (0.72-1.25) mg/dL Est GFR ( Amer) > 60 (> 60) Est GFR (Non-Af Amer) > 60 (> 60) BUN/Creatinine Ratio 16 (6-26) Glucose 103 H (70-99) mg/dL Calculated Osmolality 272 L (280-300) Lactic Acid (0.5-2.2) mmol/L Calcium 8.6 (8.6-10.8) mg/dL Total Bilirubin 1.3 H (0.2-1.2) mg/dL AST 154 H (5-34) Units/L ALT 154 H (0-55) Units/L Alkaline Phosphatase 90 (38-126) Units/L Troponin I (0-0.03) ng/mL Serum Total Protein 7.9 (6.0-8.3) g/dL Albumin 2.6 L (3.5-5.0) g/dL Globulin 5.3 H (2.4-3.5) g/dL Albumin/Globulin Ratio 0.5 L (1.1-2.2) Lipase 10 (8-78) Units/L Urine Color Dark Yellow (Yellow) Urine Clarity Clear (Clear) Urine pH 5.5 (5.0-8.0) pH Units Ur Specific [place] 1.020 (1.010-1.025) Urine Protein Trace (Neg-Trace) mg/dL Urine Glucose (UA) Normal (Normal) mg/dL Urine Ketones Negative (Negative) mg/dL Urine Blood Negative (Negative) Urine Nitrite Negative (Negative) Urine Bilirubin Small H (Negative) Urine Urobilinogen Normal (Normal) mg/dL Ur Leukocyte Esterase Negative (Negative) Urine Microscopic RBC 0-3 (0-3) per hpf Urine Microscopic WBC 0-3 (0-3) per hpf Ur Squamous Epith Cells Moderate H (None-Few) per lpf Urine Bacteria None Seen (None-Few) per hpf Hyaline Casts None Seen (None-Few) per lpf Ur Culture Indicated? NO (NO) 01/20/17 01/20/17 Range/Units 13:13 13:13 WBC (4.3-11.1) K/mcL RBC (4.19-5.50) M/mcL Hgb (12.9-16.9) g/dL Hct (37.5-50.1) % MCV (83.0-100.0) fL MCH (28.0-33.3) pg MCHC (31.6-35.5) g/dL RDW (11.5-14.5) % Plt Count (140-400) K/mcL MPV (9.4-12.4) fL Immature Gran % (0-4) % Seg Neutrophils % % Lymphocytes % % Monocytes % % Eosinophils % % Basophils % % Neutrophils # (1.6-8.9) K/mcL Lymphocytes # (0.6-4.6) K/mcL Monocytes # (0.0-1.3) K/mcL Eosinophils # (0.0-0.6) K/mcL Basophils # (0.0-0.2) K/mcL Sodium (136-145) mEq/L Potassium (3.5-4.5) mEq/L Chloride (98-109) mEq/L Carbon Dioxide (19-29) mEq/L BUN (8-26) mg/dL Creatinine (0.72-1.25) mg/dL Est GFR ( Amer) (> 60) Est GFR (Non-Af Amer) (> 60) BUN/Creatinine Ratio (6-26) Glucose (70-99) mg/dL Calculated Osmolality (280-300) Lactic Acid 1.7 (0.5-2.2) mmol/L Calcium (8.6-10.8) mg/dL Total Bilirubin (0.2-1.2) mg/dL AST (5-34) Units/L ALT (0-55) Units/L Alkaline Phosphatase (38-126) Units/L Troponin I 0.00 (0-0.03) ng/mL Serum Total Protein (6.0-8.3) g/dL Albumin (3.5-5.0) g/dL Globulin (2.4-3.5) g/dL Albumin/Globulin Ratio (1.1-2.2) Lipase (8-78) Units/L Urine Color (Yellow) Urine Clarity (Clear) Urine pH (5.0-8.0) pH Units Ur Specific [place] (1.010-1.025) Urine Protein (Neg-Trace) mg/dL Urine Glucose (UA) (Normal) mg/dL Urine Ketones (Negative) mg/dL Urine Blood (Negative) Urine Nitrite (Negative) Urine Bilirubin (Negative) Urine Urobilinogen (Normal) mg/dL Ur Leukocyte Esterase (Negative) Urine Microscopic RBC (0-3) per hpf Urine Microscopic WBC (0-3) per hpf Ur Squamous Epith Cells (None-Few) per lpf Urine Bacteria (None-Few) per hpf Hyaline Casts (None-Few) per lpf Ur Culture Indicated? (NO)
[2017-01-20 12:59] LABS: Bilirubin,Urine Small (Negative); Blood,Urine Negative (Negative); Clarity,Urine Clear (Clear); Color,Urine Dark Yellow (Yellow); Glucose,Urine (UA) Normal (Normal); Ketones,Urine Negative (Negative); Leukocyte Esterase,Urine Negative (Negative); Nitrite,Urine Negative (Negative); PH,Urine 5.5 pH Units (5.0-8.0); Protein,Urine Trace mg/dL (Neg-Trace); Urobilinogen,Urine Normal (Normal)
[2017-01-20 13:02] LABS: Bacteria,Urine None Seen per hpf (None-Few); Hyaline Casts,Urine None Seen per lpf (None-Few); RBC,Urine 0-3 per hpf (0-3); Squamous Epithelial Cell,Urine Moderate per lpf (None-Few); WBC,Urine 0-3 per hpf (0-3)
[2017-01-20 13:21] LABS: Basophils # 0.1 K/mcL (0.0-0.2); Basophils % 0.5 %; Eosinophils # 0.1 K/mcL (0.0-0.6); Eosinophils % 0.7 %; Hematocrit 38.9 % (37.5-50.1); Hemoglobin 12.9 g/dL (12.9-16.9); Immature Granulocytes % 1.1 % (0-4); Lymphocytes # 2.2 K/mcL (0.6-4.6); Lymphocytes % 18.9 %; Mean Corpuscular HGB Conc 33.2 g/dL (31.6-35.5); Mean Corpuscular Hemoglobin 30.4 pg (28.0-33.3); Mean Corpuscular Volume 91.5 fL (83.0-100.0); Monocytes # 1.7 K/mcL (0.0-1.3); Monocytes % 15.3 %; Neutrophils # 7.3 K/mcL (1.6-8.9); Platelet Count 383 K/mcL (140-400); Red Blood Count 4.25 M/mcL (4.19-5.50); Red Cell Distribution Width 15.1 % (11.5-14.5); Segmented Neutrophils % 63.5 %
[2017-01-20 13:36] LABS: Alanine Aminotransferase 154 Units/L (0-55); Albumin 2.6 g/dL (3.5-5.0); Albumin/Globulin Ratio 0.5 (1.1-2.2); Alkaline Phosphatase 90 Units/L (38-126); Aspartate Amino Transferase 154 Units/L (5-34); BUN/Creatinine Ratio 16 (6-26); Bilirubin,Total 1.3 mg/dL (0.2-1.2); Blood Urea Nitrogen 11 mg/dL (8-26); Calcium 8.6 mg/dL (8.6-10.8); Carbon Dioxide 24 mEq/L (19-29); Chloride 102 mEq/L (98-109); Globulin 5.3 g/dL (2.4-3.5); Glucose 103 mg/dL (70-99); Lipase 10 Units/L (8-78); Osmolality,Calculated 272 (280-300); Potassium 3.8 mEq/L (3.5-4.5); Sodium 131 mEq/L (136-145); Total Protein 7.9 g/dL (6.0-8.3); eGFR For African Americans > 60 (> 60); eGFR For Non-African Americans > 60 (> 60)
[2017-01-20] MEDS ORDERED: MetroNIDAZOLE 500 MG/100 ML 500 MG/100 ML BAG IVPB ONE (18:14)
--- NOTE | 2017-01-20 19:22 | Internal Med History&Physical ---
<Florentin Garcia - Last Filed: 01/20/17 21:44> Date of Encounter: 01/20/17 Time of Encounter: 19:22 Assessment and Plan (1) Acute cholecystitis Current visit: Yes Status: Acute 01/20/17 CT abd/ plv revealed calcification along the anterior wall of the gallbladder, multicystic thickening of the gallbladder fundus, splenomegaly, and periportal edema. 01/20/17 Gallbladder U/S revealed gallbladder distention and mild gallbladder wall thickening and nonspecific dilatation of the common bile duct. 08/14/16 MRCP revealed borderline dilated common bile duct. There is a 2.0 x 1.4 cm lobular multiloculated cystic structure adjacent to the gallbladder fundus of indeterminate cause. 08/14/16 Endoscopic ultrasound revealed no significant pathology of the CBD WBC 11.4, Patient started on Cipro/ Flagyl in the ED. Continue Cipro/ Flagyl IV Low fat diet for dinner, NPO after [facility] consulted (2) Transaminitis Current visit: Yes Status: Acute Continue to monitor. Direct/ Indirect bilirubin, ETOH level, Tylenol level pending (3) Hepatitis C Current visit: Yes Status: Chronic Acute Hepatitis panel pending Remote h/o IVDU. Continue to monitor Qualifiers: Viral hepatitis chronicity: chronic Qualified Code(s): B18.2 - Chronic viral hepatitis C (4) Diarrhea Current visit: Yes Status: Acute He reports foul smelling diarrhea multiple times per day for the past month and reports taking antibiotics 1.5 months ago in residential. GI panel pending Qualifiers: Diarrhea type: unspecified type Qualified Code(s): R19.7 - Diarrhea, unspecified (5) COPD (chronic obstructive pulmonary disease) Current visit: No Status: Chronic Not in acute exacerbation Qualifiers: COPD type: unspecified COPD Qualified Code(s): J44.9 - Chronic obstructive pulmonary disease, unspecified (6) Tobacco dependence Current visit: Yes Status: Acute Tobacco cessation discussed. (7) DVT prophylaxis Current visit: Yes Status: Acute SCDs, anticipate procedure/ surgery Internal Medicine - H&P: HPI Chief complaint: Abd pain Admitted From: Home Plans for Post Hospital Care: Home History of present illness: Mr. Fair is a 61 year old male that recently got out of residential with a PMH of Hepatitis C, COPD, and tobacco dependence presented c/o abd pain for the past 1 week and diarrhea multiple times per day for the past month. Pain is located in the RUQ, 10/10 severity, and associated with nausea, fatigue, chills, and decreased appetite. Movement and taking a deep breath makee abd pain worse and patient reports slight improvement in abd pain with warm food intake. Dilaudid decreased the pain in the ED. He reports foul smelling diarrhea multiple times per day for the past month and reports taking antibiotics 1.5 months ago in residential. Of note, patient reports h/o common bile duct dilation, colon resection following SBO, umbilical hernia repair, and remote h/o IVDU. He also reports 35lbs weight gain in the past 3 months and tingling in both legs. Patient denies fever, CP, SOB, vomiting, back pain, dysuria, leg edema, or recent trauma. His father had colon cancer but patient denies ever having a colonoscopy. In the ED, CT abd/ plv revealed calcification along the anterior wall of the gallbladder, multicystic thickening of the gallbladder fundus, splenomegaly, and periportal edema. Gallbladder U/S revealed gallbladder distention and mild gallbladder wall thickening and nonspecific dilatation of the common bile duct. Past Med Surg Social Fam HX - Past Medical History Medical history: arthritis, asthma, COPD, other Psychiatric history: no psych history - Past Surgical History Surgical History: other (1 foot of colon removed s/p SBO) - Social History Smoking Status: Current some day smoker Smokeless Tobacco Status: No Alcohol use: none (quit 17 years ago) Drug use: opiates, IV Drug Use, other Recent Out of Country Travel Within the Last 8 Weeks: No Exposure or Possible Exposure to Illness During Travel: No - Family History Father Adopted: No Living Status: Hx Family Cardiac Disorders: No Hx Family Respiratory Disorders: No Hx Family Cancer: Yes (Colon cancer) Hx Family GI Disorders: Yes Hx Family Endocrine Disorder: No Hx Family Neuromuscular Disorders: No Hx Family Neurologic Disorders: No Hx Family HEENT Disorders: No Hx Family Autoimmune Disorders: No Mother Adopted: No Family Member Ethnicity: Non- Living Status: Hx Family Cardiac Disorders: No Hx Family Respiratory Disorders: Yes (COPD) Hx Family Cancer: Yes Hx Family GI Disorders: No Hx Family Endocrine Disorder: No Hx Family Neuromuscular Disorders: No Hx Family Neurologic Disorders: No Hx Family HEENT Disorders: No Hx Family Autoimmune Disorders: No Internal Medicine - H&P: Meds Albuterol Sulfate [Proair Hfa] 2 puff IH QID PRN 01/20/17 [History] Fluticasone Propionate [Flovent Hfa] 1 puff IH AD 01/20/17 [History] 3 Allergy/AdvReac Type Severity Reaction Status Date / Time No Known Allergies Allergy Verified 01/20/17 12:01 All Systems PM: A 10-system review of systems was performed and is negative for pertinent findings except as documented above in the HPI. - Constitutional Constitutional: anorexia, chills, fatigue, weight gain, no fever(s) - EENT Eyes: no change in vision Nose, mouth and throat: no nasal congestion, no sinus pressure - Cardiovascular Cardiovascular ROS IM: no chest pain - Respiratory Respiratory: no cough, no dyspnea, no chest congestion - Gastrointestinal Gastrointestinal: abdominal pain, bloating, cramping, diarrhea, loose stools, nausea, no constipation, no heartburn, no hematemesis, no hematochezia, no melena, no vomiting - Genitourinary Genitourinary ROS male: no dysuria, no urinary frequency, no urinary urgency - Musculoskeletal Musculoskeletal ROS IM: no back pain, no numbness - Integumentary Integumentary IM: no erythema, no rash - Neurological Neurological ROS: tingling, weakness, no dizziness, no numbness - Psychiatric Psychiatric: no anxiety, no depression - Endocrine Endocrine IM: no polydipsia, no polyphagia, no polyuria - Constitutional Vitals: Temp Pulse Resp BP Pulse Ox 98.0 F 85 12 128/80 94 01/20/17 12:01 01/20/17 17:18 01/20/17 19:03 01/20/17 19:03 01/20/17 17:18 General appearance: Present: cooperative, mild distress, A&O X 3, pleasant, answers questions appropriately - Head Head exam: Present: atraumatic, normal inspection, normocephalic - Eye Eye exam: Present: EOMI, PERRL - ENT ENT exam: Present: mucous membranes moist, normal oropharynx - Neck Neck exam general surgery: Present: normal inspection, supple. Absent: lymphadenopathy, tenderness - Respiratory Respiratory exam: Present: CTAB. Absent: accessory muscle use, respiratory distress, wheezes - Cardiovascular Cardiovascular exam: Present: RRR, +S1, +S2 - GI/Abdominal GI/Abdominal exam: Present: normal bowel sounds, soft, tenderness. Absent: distended, guarding, rebound - Expanded GI/Abdominal Exam GI/Abdominal exam expanded: Present: Kaminski's sign - Extremities Exam Extremities exam: Present: full ROM, warm. Absent: pedal edema, tenderness - Back Exam Back exam: Present: normal inspection. Absent: paraspinal tenderness, vertebral tenderness - Neurological Exam Neurological exam: Present: alert, oriented X3, strengths equal and symetr throughout. Absent: altered - Psychiatric Psychiatric exam: Present: normal affect, normal mood - Skin Skin exam: Present: dry, intact, warm Internal Med - H&P Results - Labs CBC & Chem 7: 01/20/17 13:13 01/20/17 13:13 - EKG Data -: EKG Interpreted by Myself EKG shows normal: sinus rhythm (sinus rhythm with a rate of 94, with sinus arrhythmia, UT interval is 125, QRS 73, QTc is 389, no signs of ischemia) - Impressions ITS Impressions Chest X-Ray 01/20/17 12:30 IMPRESSION: No acute cardiopulmonary process. Findings consistent with COPD and interstitial lung disease, similar to prior. D/ / 01/20/2017 12:58:17 Jermaine Guillaume MD / [facility] Interpreting Provider: Jermaine Guillaume MD Abdomen/Pelvis CT 01/20/17 14:00 IMPRESSION: 1. Calcification along the anterior wall of the gallbladder. It is unclear whether this represents a gallstone or focal mural calcification. 2. Multicystic thickening of the gallbladder fundus of unclear etiology. When correlated to prior MRI of August 14, 2016, similar finding was noted. 3. Splenomegaly. 4. Periportal edema. Finding is nonspecific but can be seen in the setting of hepatitis. D/ / 01/20/2017 15:29:02 Trevon Pang MD / [facility] Interpreting Provider: Trevon Pang MD Gallbladder Ultrasound 01/20/17 15:47 IMPRESSION: 1. Findings are equivocal for cholecystitis, with gallbladder distention and mild gallbladder wall thickening. However, there are no evident gallstones or pericholecystic fluid. Suggest clinical correlation, and if concerning, consider further characterization with a dedicated nuclear medicine HIDA scan. 2. Nonspecific dilatation of the common bile duct without demonstrable cause. If there is a history of elevated LFTs, consider further characterization with a follow-up MRCP study. 3. Normal sonographic appearance of the liver, right kidney, and pancreas. D/ / Lenard Vera MD / Lenard Vera MD Interpreting Provider: Lenard Vera MD <Tae Avila - Last Filed: 01/20/17 23:34> Date of Encounter: 01/20/17 Time of Encounter: 22:30 All Systems PM: A 10-system review of systems was performed and is negative for pertinent findings except as documented above in the HPI. - Constitutional Constitutional: no fever(s), no night sweats - EENT Nose, mouth and throat: no sore throat - Cardiovascular Cardiovascular ROS IM: no chest pain, no palpitations - Respiratory Respiratory: no cough, no dyspnea, no hemoptysis - Gastrointestinal Gastrointestinal: abdominal pain, diarrhea, no hematemesis, no hematochezia, no melena - Genitourinary Genitourinary ROS male: no dysuria, no hematuria, no nocturia - Musculoskeletal Musculoskeletal ROS IM: no arthralgias, no back pain - Integumentary Integumentary IM: other (patient admits to jaundice 2 months ago, but that resolved), no jaundice - Endocrine Endocrine IM: no polydipsia, no polyphagia, no polyuria - Constitutional Vitals: Temp Pulse Resp BP Pulse Ox 99.0 F 92 22 152/87 98 01/20/17 19:50 01/20/17 19:50 01/20/17 22:35 01/20/17 19:50 01/20/17 22:35 General appearance: Present: mild distress, A&O X 3 - Head Head exam: Present: normal inspection - Eye Eye exam: Present: PERRL. Absent: scleral icterus Pupils: Present: normal accommodation - ENT ENT exam: Present: mucous membranes moist, normal oropharynx - Neck Neck exam general surgery: Present: supple - Respiratory Respiratory exam: Present: CTAB. Absent: rales, rhonchi, wheezes - Cardiovascular Cardiovascular exam: Present: RRR, +S1, +S2 - GI/Abdominal GI/Abdominal exam: Present: soft, tenderness (RUQ ), no peritoneal signs. Absent: guarding, rebound - Extremities Exam Extremities exam: Present: full ROM. Absent: calf tenderness - Back Exam Back exam: Absent: CVA tenderness (L), CVA tenderness (R) - Skin Skin exam: Present: dry, warm Internal Med - H&P Results - Labs CBC & Chem 7: 01/20/17 13:13 01/20/17 13:13 - EKG Data -: EKG Interpreted by Myself EKG shows normal: sinus rhythm - Diagnostic Studies Chest x-ray Status: image reviewed by me (negative) - Attending Attestation I discussed the patient HO-CHUNK, PMH, ROS, lab data, and exam findings with Dr. Garcia. I then saw and examined patient independently as well. I reviewed his old records and discussed with patient his history of Hepatitis C. He states he was just diagnosed about 4 months ago with Hepatitis C. He admits to being jaundiced about 2 months ago, but his jaundice resolved. He denies any excessive Tylenol use, alcohol use, or any other concomitant Hepatitis. He has been worked up extensively in recent past for GB disease. While he has history , symptoms, and exam findings concerning for GB disease, I am more concerned that his symptoms are due to hepatitis rather than GB disease. Nonetheless, I agree with GI consult as well as surgery consult. I spoke with Dr. Kailey michelle and requested a consult from him tomorrow. However, I suspect hepatitis as etiology of his RUQ pain moreso than GB disease. At this time, his exam findings do not suggest an acute abdomen. Other than my comments above and noted exam findings, I agree with Dr. Garcia's assessment and plan.
[2017-01-20] MEDS ORDERED: Naloxone 0.4 MG/ML INJ IVP PRN (20:26)
[2017-01-20] MEDS ORDERED: *HR* Morphine 2 MG/ML SYRINGE IVP PRN (20:26)
[2017-01-20] MEDS ORDERED: Ondansetron 4 MG/2 ML VIAL IVP PRN (20:26)
--- NOTE | 2017-01-20 22:30 | Electrocardiograph Report ---
[facility] Test Date: 2017-01-20 Pat Name: Galen Fair Department: [id number] Room: 3A42 Gender: M Criminal Research Specialist: [facility] : 1955 Requested By: John Flores Order Number: [id number] Reading MD: Aldo Velázquez MD Measurements Intervals [place] Rate: 94 P: 66 AL: 128 QRS: 36 QRSD: 73 T: 50 QT: 338 QTc: 389 Interpretive Statements SINUS RHYTHM WITH MARKED SINUS ARRHYTHMIA Electronically Signed On 01-20-2017 22:28:37 EDT by Aldo Velázqeuz MD
[2017-01-20] MEDS: *HR* HYDROmorphone (PF) 1 MG/ML SYRINGE IVP PRN (22:44)
[2017-01-20] MEDS: 0.9 % Sodium Chloride 1,000 ML IVC SCH (22:45)
[2017-01-21] MEDS ORDERED: Ibuprofen 600 MG TABLET PO ONE (02:08)
[2017-01-21] MEDS: MetroNIDAZOLE 500 MG/100 ML 500 MG/100 ML BAG IVPB SCH ×3 (03:36→17:55)
[2017-01-21 04:44] LABS: Basophils # 0.1 K/mcL (0.0-0.2); Basophils % 0.6 %; Eosinophils # 0.1 K/mcL (0.0-0.6); Eosinophils % 1.3 %; Hematocrit 35.2 % (37.5-50.1); Hemoglobin 11.8 g/dL (12.9-16.9); Immature Granulocytes % 0.6 % (0-4); Lymphocytes # 2.1 K/mcL (0.6-4.6); Lymphocytes % 20.3 %; Mean Corpuscular HGB Conc 33.5 g/dL (31.6-35.5); Mean Corpuscular Volume 92.4 fL (83.0-100.0); Mean Platelet Volume 9.6 fL (9.4-12.4); Monocytes # 1.8 K/mcL (0.0-1.3); Monocytes % 17.1 %; Neutrophils # 6.3 K/mcL (1.6-8.9); Platelet Count 365 K/mcL (140-400); Red Blood Count 3.81 M/mcL (4.19-5.50); Red Cell Distribution Width 15.2 % (11.5-14.5); Segmented Neutrophils % 60.1 %
[2017-01-21 04:46] LABS: INR 1.6; Prothrombin Time 17.8 Seconds (9.4-12.1)
[2017-01-21 04:48] LABS: Activated Partial Thrombo Time 36.6 Seconds (26.0-36.0)
[2017-01-21 05:04] LABS: Acetaminophen < 1.0 mcg/mL (10-30); Ethanol < 10 mg/dL (0-10)
[2017-01-21 05:07] LABS: Alanine Aminotransferase 137 Units/L (0-55); Albumin 2.4 g/dL (3.5-5.0); Albumin/Globulin Ratio 0.5 (1.1-2.2); Alkaline Phosphatase 79 Units/L (38-126); Aspartate Amino Transferase 139 Units/L (5-34); BUN/Creatinine Ratio 15 (6-26); Bilirubin,Direct 0.6 mg/dL (0.0-0.5); Bilirubin,Total 1.1 mg/dL (0.2-1.2); Blood Urea Nitrogen 11 mg/dL (8-26); Calcium 8.1 mg/dL (8.6-10.8); Carbon Dioxide 24 mEq/L (19-29); Chloride 104 mEq/L (98-109); Globulin 4.9 g/dL (2.4-3.5); Glucose 97 mg/dL (70-99); Magnesium 1.5 mg/dL (1.6-2.6); Osmolality,Calculated 277 (280-300); Potassium 3.7 mEq/L (3.5-4.5); Sodium 134 mEq/L (136-145); Total Protein 7.3 g/dL (6.0-8.3); eGFR For African Americans > 60 (> 60); eGFR For Non-African Americans > 60 (> 60)
[2017-01-21] MEDS: Famotidine 20 MG/2 ML VIAL IVP SCH ×2 (05:49→17:56)
[2017-01-21] MEDS ORDERED: Magnesium Sulfate 2 GM in D5% in Water 100 ML IVPB ONE (06:17)
[2017-01-21] MEDS: *HR* HYDROmorphone (PF) 1 MG/ML SYRINGE IVP PRN ×3 (07:56→22:43)
[2017-01-21 10:22] LABS: Hepatitis A Antibody IgM Nonreactive (Nonreactive)
[2017-01-21] MEDS: 0.9 % Sodium Chloride 1,000 ML IVC SCH ×2 (10:24→13:38)
[2017-01-21] MEDS: Beclomethasone 80mcg MDI IH SCH ×2 (10:54→22:49)
--- NOTE | 2017-01-21 11:13 | Gastroenterology Consult Note ---
<Hteal Bergman - Last Filed: 01/21/17 11:06> Date of Encounter: 01/21/17 Time of Encounter: 10:20 - Assessment and plan (1) Abdominal pain Current Visit: Yes Status: Acute Assessment and plan: Pt has a history of CBD dilation is s/p EUS 08/04 which did not show obstruction or stones. He has continued RUQ pain. CT abdomen shows abnormal gallbladder. Would recommend surgical consult for possible cholecystectomy. He also has Hep C , needs followed as an outpatient. Qualifiers: Abdominal location: right upper quadrant Qualified Code(s): R10.11 - Right upper quadrant pain (2) Common bile duct dilatation Current Visit: Yes Status: Acute Assessment and plan: EUS normal 08/04, may be related to gallbladder disease, recommend surgical consult. - Time Spent With Patient Total time spent is greater than 50% in coordination of care (as documented) at patient's floor/unit and/or counseling patient: GI History of Present Illness - Data of Consult Patient: known to practice within the last 3 years Consult date: 01/21/17 Requesting Physician: Fernanda Gomez MD - Consult Narrative Reason for consult: abd pain History of present illness: Mr. Fair is a 61 year old male who presented with abdominal pain and diarrhea. He has a pmhx of Hep C, COPD, and IVDA. Surgical history includes colon resection for SBO, hernia repair and EUS 08/[address] Hogan for CBD dilation. CT abdomen showed calcification along the anterior wall of the gallbladder. Multicystic thickening of the gallbladder fundus. Splenomegaly. Periportal edema. Gall bladder US showed dilation and thickening of the GB with dilation of the CBD. Labs WBC 10.4, Hgb 11.8, Plt 365, INR 1.6, Na 134, T Bili 1.1, AST 139, ALT 137, Alb 3.4. Labs 08/04 showed positive for Hep B and Hep C, CA 19.9 84. EUS 08/04 did not show abnormalities, obstruction or stones in the CBD. He reports continued RUQ abdominal pain the past month worse the past week. He states the pain is not worsened by food but is improved with drinking warm liquids. He had brown colored diarrhea. He denies bloody stools. He reports occasional nausea without vomiting. He had low grade fever and chills last night. He denies dysphagia, he has occasional GERD symptoms. He denies ETOH states he quit in 2001. He has a history of IVDA but states he has not used since September 2016 as he has been incarcerated. Colonoscopy: denies, father has a history of colon CA EGD: EUS 08/04 NSAIDS: denies ASA: denies Anticougulants: denies Past Med Surg Social Fam HX - Past Medical History Medical history: arthritis, asthma, COPD, other Psychiatric history: no psych history - Past Surgical History Surgical History: other - Social History Smoking Status: Current some day smoker Smokeless Tobacco Status: No Alcohol use: none Drug use: opiates, IV Drug Use, other - Family History Father Adopted: No Living Status: Hx Family Cardiac Disorders: No Hx Family Respiratory Disorders: No Hx Family Cancer: Yes (Colon cancer) Hx Family GI Disorders: Yes (cancer) Hx Family Endocrine Disorder: No Hx Family Neuromuscular Disorders: No Hx Family Neurologic Disorders: No Hx Family HEENT Disorders: No Hx Family Autoimmune Disorders: No Mother Adopted: No Family Member Ethnicity: Non- Living Status: Cause of : copd Hx Family Cardiac Disorders: Yes Hx Family Respiratory Disorders: Yes (copd) Hx Family Cancer: Yes Hx Family GI Disorders: No Hx Family Endocrine Disorder: No Hx Family Neuromuscular Disorders: No Hx Family Neurologic Disorders: No Hx Family HEENT Disorders: No Hx Family Autoimmune Disorders: No Review of Systems: GI: as per [place] GENERAL: low grade fever, has some chills EYES: denies yellow discoloration ENT: denies pain with swallowing or difficulty swallowing CARDIO: denies chest pain, palpitations RESP: mild chronic Shortness of breath with exertion : denies change in color of urine NEURO: denies any weakness HEME: Denies any bruising MS: chronic back and joint pain DERM: denies rash or itching PSYCH: history of anxiety or depression - Constitutional Vitals: Temp Pulse Resp BP Pulse Ox 98.3 F 77 16 110/71 96 01/21/17 08:24 01/21/17 08:24 01/21/17 08:24 01/21/17 08:24 01/21/17 08:24 Exam: CONSTITUTIONAL:~alert, no acute distress.~HEAD:~normocephalic.~EYES:~no jaundice.~NECK:~no obvious swelling.~HEART:~regular rate and rhythm, no murmurs. ~LUNGS:~bilateral good air entry.~ABDOMEN:~non distended, soft, tender RUQ, no masses pulpable, no organomegaly.~RECTAL EXAM:~Deferred.~EXTREMITIES:~no clubbing, cyanosis or edema.~SKIN:~no stigmata of chronic liver disease.~ NEUROLOGIC:~no obvious focal defect.~~~~ Results - Labs CBC & Chem 7: 01/21/17 03:24 01/21/17 03:24 Labs: Last Result Calcium 8.1 mg/dL (8.6-10.8) L 01/21/17 03:24 Troponin I 0.00 ng/mL (0-0.03) 01/20/17 13:13 Entire Visit Hgb 11.8 g/dL (12.9-16.9) L 01/21/17 03:24 Hct 35.2 % (37.5-50.1) L 01/21/17 03:24 PT 17.8 Seconds (9.4-12.1) H 01/21/17 03:24 Total Bilirubin 1.1 mg/dL (0.2-1.2) 01/21/17 03:24 AST 139 Units/L (5-34) H 01/21/17 03:24 ALT 137 Units/L (0-55) H 01/21/17 03:24 Lipase 10 Units/L (8-78) 01/20/17 13:13 Acetaminophen < 1.0 mcg/mL (10-30) L 01/21/17 03:24 - ABG ABG results: PT/INR, D-dimer PT 17.8 Seconds (9.4-12.1) H 01/21/17 03:24 Consult Discharge Plan - Plan Referrals: Hunter Salazar DO [Primary Care Provider] - <Milana Hogan - Last Filed: 01/21/17 17:43> Date of Encounter: 01/21/17 Time of Encounter: 18:00 - Time Spent With Patient Total time spent is greater than 50% in coordination of care (as documented) at patient's floor/unit and/or counseling patient: GI History of Present Illness - Data of Consult Requesting Physician: Fernanda Gomez MD - Consult Narrative History of present illness: Mr. Fair is a 61 year old male - Constitutional Vitals: Temp Pulse Resp BP Pulse Ox 98.4 F 72 12 115/66 95 01/21/17 12:26 01/21/17 12:26 01/21/17 12:26 01/21/17 12:26 01/21/17 12:26 Results - Labs CBC & Chem 7: 01/21/17 03:24 01/21/17 03:24 Labs: Last Result Calcium 8.1 mg/dL (8.6-10.8) L 01/21/17 03:24 Troponin I 0.00 ng/mL (0-0.03) 01/20/17 13:13 Entire Visit Hgb 11.8 g/dL (12.9-16.9) L 01/21/17 03:24 Hct 35.2 % (37.5-50.1) L 01/21/17 03:24 PT 17.8 Seconds (9.4-12.1) H 01/21/17 03:24 Total Bilirubin 1.1 mg/dL (0.2-1.2) 01/21/17 03:24 AST 139 Units/L (5-34) H 01/21/17 03:24 ALT 137 Units/L (0-55) H 01/21/17 03:24 Lipase 10 Units/L (8-78) 01/20/17 13:13 Acetaminophen < 1.0 mcg/mL (10-30) L 01/21/17 03:24 - ABG ABG results: PT/INR, D-dimer PT 17.8 Seconds (9.4-12.1) H 01/21/17 03:24 - Impressions Impressions Liver Scan Nuclear Medicine 01/21/17 08:12 IMPRESSION: No evidence of biliary obstruction with normal gallbladder filling and small bowel clearance. Normal gallbladder ejection fraction 62%. However this elicited severe pain according to nuclear operations specialist comments. Given this information as well as the gallbladder distention, wall thickening and pericholecystic edema, acalculous cholecystitis or severe dyskinesia could still be considered. D/ / Gennaro Juarez MD / Gennaro Juarez MD Interpreting Provider: Gennaro Juarez MD - Attending Attestation I examined this patient and my medical decision-making was reviewed with the Resident Physician. I agree with the documented findings, disposition and treatment plan as described except to the extent set forth below. 1: Patient with a history of chronic hepatitis C now has acute hepatitis B with the right-sided upper quadrant pain. Symptomatic treatment only at this point we will check his hepatitis B DNA. 2: Abnormality of the gallbladder most probably due to adenomyomatosis but that finding is stable
[2017-01-21 12:07] LABS: Hepatitis B Core IgM Reactive (Nonreactive)
[2017-01-21 12:08] LABS: Hepatitis B Surface Antigen Reactive (Nonreactive); Hepatitis C Virus Antibody Reactive (Nonreactive)
--- NOTE | 2017-01-21 16:21 | Internal Med Progress Note ---
Date of Encounter: 01/21/17 Time of Encounter: 09:00 - Assessment and plan (1) Acute cholecystitis Current Visit: Yes Status: Suspected Assessment and plan: Bilirubin 1.1. Abd pain improving. GI consult appreaciated. Will get HIDA scan and surgery consult. (2) Common bile duct dilatation Current Visit: Yes Status: Acute Assessment and plan: CBD dilated. Patient underwent EUS earlier this year and did not have any CBD stones. Surgery consult requested. (3) COPD (chronic obstructive pulmonary disease) Current Visit: Yes Status: Chronic Assessment and plan: Continue bronchodilators as needed. Not in acute exacerbation Qualifiers: COPD type: unspecified COPD Qualified Code(s): J44.9 - Chronic obstructive pulmonary disease, unspecified (4) Diarrhea Current Visit: Yes Status: Acute Assessment and plan: Appears to be improving. Patient has not had any episodes of diarrhea today. Qualifiers: Diarrhea type: unspecified type Qualified Code(s): R19.7 - Diarrhea, unspecified (5) DVT prophylaxis Current Visit: Yes Status: Acute Assessment and plan: Place patient on heparin subcutaneous (6) Hepatitis C Current Visit: Yes Status: Chronic Assessment and plan: History of chronic hepatitis C. Patient says he is in the process of getting set up for treatment through his primary care provider. Qualifiers: Viral hepatitis chronicity: chronic Qualified Code(s): B18.2 - Chronic viral hepatitis C (7) Tobacco dependence Current Visit: Yes Status: Chronic (8) Hepatitis B infection Current Visit: Yes Status: Acute Assessment and plan: Patient positive for IgM core antibody suggestive of acute hepatitis B infection. This could explain the rise in liver enzymes. Supportive care. Qualifiers: Viral hepatitis chronicity: acute Hepatic coma status: without hepatic coma Hepatitis delta agent presence: without delta-agent Qualified Code(s): B16.9 - Acute hepatitis B without delta-agent and without hepatic coma (9) Transaminitis Current Visit: Yes Status: Acute Assessment and plan: Improving AST and ALT levels. Likely from acute hepatitis B. - Constitutional Vitals: Temp Pulse Resp BP Pulse Ox 98.4 F 72 12 115/66 95 01/21/17 12:26 01/21/17 12:26 01/21/17 12:26 01/21/17 12:26 01/21/17 12:26 General appearance: Present: cooperative, mild distress, A&O X 3, answers questions appropriately - Respiratory Respiratory exam: Present: CTAB. Absent: accessory muscle use, rales, rhonchi, wheezes - Cardiovascular Cardiovascular exam: Present: RRR, +S1, +S2. Absent: diastolic murmur, gallop, rubs, systolic murmur - GI/Abdominal GI/Abdominal exam: Present: normal bowel sounds, soft, tenderness (right upper quadrant. Kaminski's sign positive), no peritoneal signs. Absent: distended - Extremities Exam Extremities exam: Present: warm, radial pulses palpable and symmetrical. Absent : calf tenderness, cyanotic, pedal edema - Skin Skin exam: Present: dry, intact Internal Medicine: Result - Labs CBC & Chem 7: 01/21/17 03:24 01/21/17 03:24 Labs: Short CBC 01/21/17 Range/Units 03:24 WBC 10.4 (4.3-11.1) K/mcL Hgb 11.8 L (12.9-16.9) g/dL Hct 35.2 L (37.5-50.1) % Plt Count 365 (140-400) K/mcL Neutrophils # 6.3 (1.6-8.9) K/mcL BMP 01/21/17 03:24 Sodium 134 L Potassium 3.7 Chloride 104 Carbon Dioxide 24 BUN 11 Creatinine 0.75 Glucose 97 Calcium 8.1 L Liver Function 01/21/17 01/21/17 Range/Units 03:24 03:24 Total Bilirubin 1.1 (0.2-1.2) mg/dL Direct Bilirubin 0.6 H (0.0-0.5) mg/dL AST 139 H (5-34) Units/L ALT 137 H (0-55) Units/L Alkaline Phosphatase 79 (38-126) Units/L Albumin 2.4 L (3.5-5.0) g/dL - ABG Interpretation ABG results: PT/INR, D-dimer PT 17.8 Seconds (9.4-12.1) H 01/21/17 03:24 Consult Discharge Plan - Plan Referrals: Hunter Salazar DO [Primary Care Provider] -
[2017-01-22] MEDS: MetroNIDAZOLE 500 MG/100 ML 500 MG/100 ML BAG IVPB SCH ×2 (03:00→12:01)
[2017-01-22] MEDS: Famotidine 20 MG/2 ML VIAL IVP SCH (05:39)
[2017-01-22] MEDS: *HR* HYDROmorphone (PF) 1 MG/ML SYRINGE IVP PRN (07:51)
[2017-01-22] MEDS: Beclomethasone 80mcg MDI IH SCH (10:25)
[2017-01-22 11:31] VITALS: BP 111/72
--- NOTE | 2017-01-22 12:25 | Discharge Summary ---
Date of Encounter: 01/22/17 Time of Encounter: 09:15 - Discharge Diagnosis (1) Hepatitis B infection Priority: Primary Status: Acute Qualifiers: Viral hepatitis chronicity: acute Hepatic coma status: without hepatic coma Hepatitis delta agent presence: without delta-agent Qualified Code(s): B16.9 - Acute hepatitis B without delta-agent and without hepatic coma (2) Acute cholecystitis Priority: Secondary Status: Ruled-out (3) Common bile duct dilatation Priority: Secondary Status: Acute (4) COPD (chronic obstructive pulmonary disease) Priority: Secondary Status: Chronic Qualifiers: COPD type: unspecified COPD Qualified Code(s): J44.9 - Chronic obstructive pulmonary disease, unspecified (5) Diarrhea Priority: Secondary Status: Resolved Qualifiers: Diarrhea type: unspecified type Qualified Code(s): R19.7 - Diarrhea, unspecified (6) DVT prophylaxis Priority: Secondary Status: Acute (7) Hepatitis C Priority: Secondary Status: Chronic Qualifiers: Viral hepatitis chronicity: chronic Qualified Code(s): B18.2 - Chronic viral hepatitis C (8) Tobacco dependence Priority: Secondary Status: Chronic (9) Transaminitis Priority: Secondary Status: Acute - Discharge Medications Prescriptions: Ibuprofen [Motrin] 600 mg PO Q8HR PRN #30 tab PRN Reason: Pain Famotidine [Pepcid] 20 mg PO BID #30 tablet Home Medications: Albuterol Sulfate [Proair Hfa] 2 puff IH QID PRN 01/20/17 [History] Fluticasone Propionate [Flovent Hfa] 1 puff IH AD 01/20/17 [History] Famotidine [Pepcid] 20 mg PO BID #30 tablet 01/22/17 [Rx] Ibuprofen [Motrin] 600 mg PO Q8HR PRN #30 tab 01/22/17 [Rx] Allergies/Adverse Reactions: 3 Allergy/AdvReac Type Severity Reaction Status Date / Time No Known Allergies Allergy Verified 01/20/17 12:01 Procedures/tests Complete & Pending: Procedures Performed prior 72 hours Category Date Time Status NM hepatobiliary w drug [NM] Stat Exams 01/21/17 08:12 Completed Date of admission: 01/20/17 23:40 Primary care physician: Hunter Salazar DO Consults: 01/21/17 15:20 Consult to Surgery [CONS] Routine Consulting Provider: Cem Small Surg - [place] Reason for Consult: Gallbladder disease- Dr. Bonner called by Dr. Avila Time Notified: 15:20 Call Completed: Yes Discharging clinician: Fernanda Gomez Anticipated date of discharge: 01/22/17 - Patient Status Disposition: Home, Self-Care Condition: Good Functional capacity at discharge: independent ambulation Overall status at discharge: patient is progressing back to baseline - Discharge Instructions Follow Up With: Hunter Salazar DO [Primary Care Provider] - (in 1 week) Ravindra Bonner MD [Non-Partnered Physician] - (in 2-3 weeks) - Diet and Activity Activity: increase activity as tolerated Diet: low fat, low cholesterol, low salt diet Hospital course: Mr. Fair is a 61 year old male patient with a history of COPD, tobacco dependence, hepatitis C presented to the ER with complaints of right upper quadrant pain. CT scan of the abdomen and pelvis was done which showed calcification along the anterior wall of the gallbladder and multicystic thickening of the gallbladder fundus. Ultrasound of the gallbladder was done which showed mild gallbladder wall thickening. Patient was admitted to treat possible acute cholecystitis. He was placed on IV antibiotics. GI and surgery were consulted. Patient underwent HIDA scan which showed a normal ejection fraction but patient did have abdominal pain while testing for gallbladder contractility. He did not have an elevation in his alkaline phosphatase. He did have rising AST and ALT which are trending down. Workup also showed positive IgM hepatitis B core antibody suggesting recent acute hepatitis B. This is likely the cause of the patient's right upper quadrant abdominal pain. I discussed this case with surgery and they recommended that the patient follow up as outpatient for possible elective cholecystectomy. Given his acute hepatitis B, they recommended waiting until this has resolved. Patient also complained of diarrhea prior to presentation. However since hospitalization he has not had any further episodes of diarrhea. At this time, patient is tolerating oral diet well and is clinically stable for discharge. He does not need any further antibiotics. He will follow up with surgery as outpatient. - Time Spent with Patient Total time spent providing and/or coordinating discharge services: Less than 30 minutes (25 min) - Constitutional Vitals: Temp Pulse Resp BP Pulse Ox 99.2 F 94 14 111/72 94 01/22/17 11:00 01/22/17 11:00 01/22/17 11:00 01/22/17 11:00 01/22/17 11:00 General appearance: Present: cooperative, mild distress, A&O X 3, answers questions appropriately - Respiratory Respiratory exam: Present: CTAB. Absent: accessory muscle use, rales, rhonchi, wheezes - Cardiovascular Cardiovascular exam: Present: RRR, +S1, +S2. Absent: diastolic murmur, gallop, rubs, systolic murmur - GI/Abdominal GI/Abdominal exam: Present: normal bowel sounds, soft, tenderness (mild right upper quadrant), no peritoneal signs. Absent: distended - Extremities Exam Extremities exam: Present: warm, radial pulses palpable and symmetrical. Absent : calf tenderness, cyanotic, pedal edema - Neurological Exam Neurological exam: Present: alert, oriented X3, no focal deficits. Absent: facial droop, speech deficit
== END 2017-01-22 13:48 | disposition home or self-care (01) ==
LOC: 3ANU 11:52 → EMEROO 11:52 → 3ANU 19:11 → SUATTDRO 23:40
PROVIDERS: ADMIT Hospitalist; ATTEND Internal Medicine

== ENCOUNTER 2017-03-07 17:13 | Inpatient (IN) ==
[2017-03-07] MEDS ORDERED: Ipratropium/Albuterol Neb 3 ML IH ONE (18:04)
[2017-03-07 18:58] LABS: Basophils % 0.4 %; Eosinophils # 0.1 K/mcL (0.0-0.6); Eosinophils % 1.2 %; Hematocrit 33.9 % (37.5-50.1); Hemoglobin 11.4 g/dL (12.9-16.9); Immature Granulocytes % 0.4 % (0-4); Lymphocytes # 1.3 K/mcL (0.6-4.6); Lymphocytes % 16.7 %; Mean Corpuscular HGB Conc 33.6 g/dL (31.6-35.5); Mean Corpuscular Volume 92.1 fL (83.0-100.0); Monocytes # 0.9 K/mcL (0.0-1.3); Monocytes % 11.3 %; Neutrophils # 5.4 K/mcL (1.6-8.9); Platelet Count 216 K/mcL (140-400); Red Blood Count 3.68 M/mcL (4.19-5.50); Red Cell Distribution Width 13.8 % (11.5-14.5)
[2017-03-07 19:04] LABS: INR 1.6
--- NOTE | 2017-03-07 19:08 | Emergency Department Note ---
Disposition Clinical Impression: Bilateral edema of lower extremity Endocarditis Qualifiers: Endocarditis type: unspecified Chronicity: unspecified Qualified Code(s): I38 - Endocarditis, valve unspecified COPD (chronic obstructive pulmonary disease) Qualifiers: COPD type: unspecified COPD Qualified Code(s): J44.9 - Chronic obstructive pulmonary disease, unspecified Disposition: Admitted As Inpatient Condition: Undetermined Extremity Problem HPI - General Chief complaint: ED Extremity Problem,Nontraumatic Stated complaint: Feet swelling Time Seen by Provider: 03/07/17 17:23 Source: patient Limitations: no limitations Nursing Notes Reviewed: Yes Vital Signs Reviewed: Yes - History of Present Illness HPI Narrative: Patient presents for evaluation of swelling in the lower extremities is been going on for approximately 2 weeks. Patient states associated shortness of breath. Patient has COPD as well as hepatitis B and C. Patient states no previous cardiac history. Patient is inconsistent with past medical history. Admits to IV drug use with last use prior to arrival. Patient's symptoms been going on for 2 weeks in the lower extremities with increasing swelling as well as pain with ambulation. [facility] and told it was related to arthritis. Patient presents today with +2 pitting edema through the mid calf lower leg. Patient has some associated petechiae. Pain to palpation. Bilateral in nature. No previous history of PE or DVT. Pain Scale: 0 - Related Data Home Medications Medication Instructions Recorded Confirmed Albuterol Sulfate [Proair Hfa] 2 puff IH QID PRN 01/20/17 03/07/17 Fluticasone Propionate [Flovent 1 puff IH AD 01/20/17 03/07/17 Hfa] Prednisone 03/07/17 Previous Rx's Medication Instructions Recorded Famotidine [Pepcid] 20 mg PO BID #30 tablet 01/22/17 Ibuprofen [Motrin] 600 mg PO Q8HR PRN #30 tab 01/22/17 Allergies Allergy/AdvReac Type Severity Reaction Status Date / Time No Known Allergies Allergy Verified 03/07/17 17:15 Past Medical History - Past Medical History Medical history: Reports: arthritis, asthma, COPD, other Surgical history: Reports: other Psychiatric history: Reports: no psych history - Social History Smoking Status: Current every day smoker Smokeless Tobacco Status: No Alcohol use: Reports: none Drug use: Reports: opiates, IV Drug Use Physical Exam General appearance: NAD, conversant Eyes: anicteric sclerae, moist conjunctivae; PERRL HENT: Atraumatic; oropharynx clear with moist mucous membranes and no mucosal ulcerations Neck: Normal inspection; Trachea midline; FROM, supple Lungs: Diffuse wheezing CV: RRR, no MRGs Abdomen: Soft, non-tender; no rebound or gaurding Extremities: +2 pitting edema to the feet and mid calf. Patient with associated petechiae. Tenderness to palpation of the associated areas of swelling. Some mild tenderness to palpation of the calves. Skin: Normal temperature; no rash, ulcers or lesions Psych: Appropriate mood and affect Neuro: alert and oriented to person, place and time - General Limitations: no limitations General appearance: alert Course - Reevaluation(s) Reevaluation #1: Patient does not qualify for high-risk DVT pathway. Patient falls within intermediate wrist which includes Lovenox in an outpatient ultrasound. At this time we will hold off on the Lovenox secondary to his associated petechiae. Will continue workup and go from there. Reevaluation #2: Patient's breathing moderately improved with DuoNeb's. - Consultations Consultation #1: Discussed with Dr. Romero. Patient accepted for admission. At this time she does not believe the patient has endocarditis. The findings of the lower extremities as well as the elevated ESR were discussed. Requests not giving antibiotics at this time. Request giving prednisone for COPD exacerbation. Vital Signs Temperature 98.6 F 03/07/17 17:15 Pulse Rate 122 03/07/17 17:15 Respiratory Rate 20 03/07/17 17:15 Blood Pressure 134/86 03/07/17 17:15 O2 Sat by Pulse Oximetry 97 03/07/17 17:15 Temperature 98.4 F 03/07/17 21:29 Pulse Rate 97 03/07/17 21:29 Respiratory Rate 15 03/07/17 21:43 Blood Pressure 147/87 03/07/17 21:29 O2 Sat by Pulse Oximetry 98 03/07/17 21:43 Oxygen Delivery Oxygen Delivery Room Air Extremity Problem, Nontraumati - Lab Data Result diagrams: 03/07/17 18:50 03/07/17 18:50 Lab Results 03/07/17 03/07/17 03/07/17 Range/Units 18:50 18:50 18:50 WBC 7.8 (4.3-11.1) K/mcL RBC 3.68 L (4.19-5.50) M/mcL Hgb 11.4 L (12.9-16.9) g/dL Hct 33.9 L (37.5-50.1) % MCV 92.1 (83.0-100.0) fL MCH 31.0 (28.0-33.3) pg MCHC 33.6 (31.6-35.5) g/dL RDW 13.8 (11.5-14.5) % Plt Count 216 (140-400) K/mcL MPV 9.0 L (9.4-12.4) fL Immature Gran % 0.4 (0-4) % Seg Neutrophils % 70.0 % Lymphocytes % 16.7 % Monocytes % 11.3 % Eosinophils % 1.2 % Basophils % 0.4 % Neutrophils # 5.4 (1.6-8.9) K/mcL Lymphocytes # 1.3 (0.6-4.6) K/mcL Monocytes # 0.9 (0.0-1.3) K/mcL Eosinophils # 0.1 (0.0-0.6) K/mcL Basophils # 0.0 (0.0-0.2) K/mcL ESR (0-10) mm/hr PT 17.0 H (9.4-12.1) Seconds INR 1.6 Sodium (136-145) mEq/L Potassium (3.5-4.5) mEq/L Chloride (98-109) mEq/L Carbon Dioxide (19-29) mEq/L BUN (8-26) mg/dL Creatinine (0.72-1.25) mg/dL Est GFR ( Amer) (> 60) Est GFR (Non-Af Amer) (> 60) BUN/Creatinine Ratio (6-26) Glucose (70-99) mg/dL Calculated Osmolality (280-300) Calcium (8.6-10.8) mg/dL Total Bilirubin (0.2-1.2) mg/dL Direct Bilirubin (0.0-0.5) mg/dL Indirect Bilirubin (0.0-1.2) mg/dL AST (5-34) Units/L ALT (0-55) Units/L Alkaline Phosphatase (38-126) Units/L Troponin I (0-0.03) ng/mL B-Natriuretic Peptide 27 (0-100) pg/mL Serum Total Protein (6.0-8.3) g/dL Albumin (3.5-5.0) g/dL Globulin (2.4-3.5) g/dL Albumin/Globulin Ratio (1.1-2.2) Urine Color (Yellow) Urine Clarity (Clear) Urine pH (5.0-8.0) pH Units Ur Specific [place] (1.010-1.025) Urine Protein (Neg-Trace) mg/dL Urine Glucose (UA) (Normal) mg/dL Urine Ketones (Negative) mg/dL Urine Blood (Negative) Urine Nitrite (Negative) Urine Bilirubin (Negative) Urine Urobilinogen (Normal) mg/dL Ur Leukocyte Esterase (Negative) Urine Microscopic RBC (0-3) per hpf Urine Microscopic WBC (0-3) per hpf Ur Squamous Epith Cells (None-Few) per lpf Urine Bacteria (None-Few) per hpf Hyaline Casts (None-Few) per lpf Urine Mucus (Few) Ur Culture Indicated? (NO) 03/07/17 03/07/17 03/07/17 Range/Units 18:50 18:50 19:43 WBC (4.3-11.1) K/mcL RBC (4.19-5.50) M/mcL Hgb (12.9-16.9) g/dL Hct (37.5-50.1) % MCV (83.0-100.0) fL MCH (28.0-33.3) pg MCHC (31.6-35.5) g/dL RDW (11.5-14.5) % Plt Count (140-400) K/mcL MPV (9.4-12.4) fL Immature Gran % (0-4) % Seg Neutrophils % % Lymphocytes % % Monocytes % % Eosinophils % % Basophils % % Neutrophils # (1.6-8.9) K/mcL Lymphocytes # (0.6-4.6) K/mcL Monocytes # (0.0-1.3) K/mcL Eosinophils # (0.0-0.6) K/mcL Basophils # (0.0-0.2) K/mcL ESR >= 130 H (0-10) mm/hr PT (9.4-12.1) Seconds INR Sodium 130 L (136-145) mEq/L Potassium 3.4 L (3.5-4.5) mEq/L Chloride 96 L (98-109) mEq/L Carbon Dioxide 26 (19-29) mEq/L BUN 7 L (8-26) mg/dL Creatinine 0.62 L (0.72-1.25) mg/dL Est GFR ( Amer) > 60 (> 60) Est GFR (Non-Af Amer) > 60 (> 60) BUN/Creatinine Ratio 11 (6-26) Glucose 81 (70-99) mg/dL Calculated Osmolality 267 L (280-300) Calcium 8.6 (8.6-10.8) mg/dL Total Bilirubin 1.1 (0.2-1.2) mg/dL Direct Bilirubin 0.7 H (0.0-0.5) mg/dL Indirect Bilirubin 0.4 (0.0-1.2) mg/dL AST 56 H (5-34) Units/L ALT 33 (0-55) Units/L Alkaline Phosphatase 88 (38-126) Units/L Troponin I 0.01 (0-0.03) ng/mL B-Natriuretic Peptide (0-100) pg/mL Serum Total Protein 7.1 (6.0-8.3) g/dL Albumin 2.7 L (3.5-5.0) g/dL Globulin 4.4 H (2.4-3.5) g/dL Albumin/Globulin Ratio 0.6 L (1.1-2.2) Urine Color (Yellow) Urine Clarity (Clear) Urine pH (5.0-8.0) pH Units Ur Specific [place] (1.010-1.025) Urine Protein (Neg-Trace) mg/dL Urine Glucose (UA) (Normal) mg/dL Urine Ketones (Negative) mg/dL Urine Blood (Negative) Urine Nitrite (Negative) Urine Bilirubin (Negative) Urine Urobilinogen (Normal) mg/dL Ur Leukocyte Esterase (Negative) Urine Microscopic RBC (0-3) per hpf Urine Microscopic WBC (0-3) per hpf Ur Squamous Epith Cells (None-Few) per lpf Urine Bacteria (None-Few) per hpf Hyaline Casts (None-Few) per lpf Urine Mucus (Few) Ur Culture Indicated? (NO) 03/07/17 Range/Units 20:07 WBC (4.3-11.1) K/mcL RBC (4.19-5.50) M/mcL Hgb (12.9-16.9) g/dL Hct (37.5-50.1) % MCV (83.0-100.0) fL MCH (28.0-33.3) pg MCHC (31.6-35.5) g/dL RDW (11.5-14.5) % Plt Count (140-400) K/mcL MPV (9.4-12.4) fL Immature Gran % (0-4) % Seg Neutrophils % % Lymphocytes % % Monocytes % % Eosinophils % % Basophils % % Neutrophils # (1.6-8.9) K/mcL Lymphocytes # (0.6-4.6) K/mcL Monocytes # (0.0-1.3) K/mcL Eosinophils # (0.0-0.6) K/mcL Basophils # (0.0-0.2) K/mcL ESR (0-10) mm/hr PT (9.4-12.1) Seconds INR Sodium (136-145) mEq/L Potassium (3.5-4.5) mEq/L Chloride (98-109) mEq/L Carbon Dioxide (19-29) mEq/L BUN (8-26) mg/dL Creatinine (0.72-1.25) mg/dL Est GFR ( Amer) (> 60) Est GFR (Non-Af Amer) (> 60) BUN/Creatinine Ratio (6-26) Glucose (70-99) mg/dL Calculated Osmolality (280-300) Calcium (8.6-10.8) mg/dL Total Bilirubin (0.2-1.2) mg/dL Direct Bilirubin (0.0-0.5) mg/dL Indirect Bilirubin (0.0-1.2) mg/dL AST (5-34) Units/L ALT (0-55) Units/L Alkaline Phosphatase (38-126) Units/L Troponin I (0-0.03) ng/mL B-Natriuretic Peptide (0-100) pg/mL Serum Total Protein (6.0-8.3) g/dL Albumin (3.5-5.0) g/dL Globulin (2.4-3.5) g/dL Albumin/Globulin Ratio (1.1-2.2) Urine Color [place] A (Yellow) Urine Clarity Clear (Clear) Urine pH 6.5 (5.0-8.0) pH Units Ur Specific [place] 1.026 H (1.010-1.025) Urine Protein 30 H (Neg-Trace) mg/dL Urine Glucose (UA) Normal (Normal) mg/dL Urine Ketones Trace H (Negative) mg/dL Urine Blood Negative (Negative) Urine Nitrite Negative (Negative) Urine Bilirubin Small H (Negative) Urine Urobilinogen 2.0 H (Normal) mg/dL Ur Leukocyte Esterase Small H (Negative) Urine Microscopic RBC 0-3 (0-3) per hpf Urine Microscopic WBC 3-5 H (0-3) per hpf Ur Squamous Epith Cells Many H (None-Few) per lpf Urine Bacteria Few (None-Few) per hpf Hyaline Casts Few (None-Few) per lpf Urine Mucus Many H (Few) Ur Culture Indicated? YES A (NO)
--- NOTE | 2017-03-07 19:10 | Emergency Department Note ---
START Narrative - START START: I examined this patient and my medical decision-making was reviewed with the Resident Physician. I agree with the documented findings, disposition and treatment plan as described except to the extent set forth below. In summary 7- year-old male presents with concern for lower extremity swelling. Plan obtain duplexes as well as chest x-ray as well as pro BNP to evaluate causes of possible swelling which include renal failure, acute clot burden versus heart failure. Final disposition pending results of advanced laboratory analyses and imaging modalities.
[2017-03-07 19:18] LABS: Alanine Aminotransferase 33 Units/L (0-55); Albumin 2.7 g/dL (3.5-5.0); Albumin/Globulin Ratio 0.6 (1.1-2.2); Alkaline Phosphatase 88 Units/L (38-126); Aspartate Amino Transferase 56 Units/L (5-34); BUN/Creatinine Ratio 11 (6-26); Bilirubin,Direct 0.7 mg/dL (0.0-0.5); Bilirubin,Indirect 0.4 mg/dL (0.0-1.2); Bilirubin,Total 1.1 mg/dL (0.2-1.2); Blood Urea Nitrogen 7 mg/dL (8-26); Calcium 8.6 mg/dL (8.6-10.8); Carbon Dioxide 26 mEq/L (19-29); Chloride 96 mEq/L (98-109); Globulin 4.4 g/dL (2.4-3.5); Glucose 81 mg/dL (70-99); Osmolality,Calculated 267 (280-300); Potassium 3.4 mEq/L (3.5-4.5); Sodium 130 mEq/L (136-145); Total Protein 7.1 g/dL (6.0-8.3); eGFR For African Americans > 60 (> 60); eGFR For Non-African Americans > 60 (> 60)
[2017-03-07 20:16] LABS: Bilirubin,Urine Small (Negative); Blood,Urine Negative (Negative); Clarity,Urine Clear (Clear); Color,Urine Orange (Yellow); Glucose,Urine (UA) Normal (Normal); Ketones,Urine Trace mg/dL (Negative); Leukocyte Esterase,Urine Small (Negative); Nitrite,Urine Negative (Negative); PH,Urine 6.5 pH Units (5.0-8.0); Protein,Urine 30 mg/dL (Neg-Trace); Specific Gravity,Urine 1.026 (1.010-1.025)
[2017-03-07 20:19] LABS: Hyaline Casts,Urine Few per lpf (None-Few); RBC,Urine 0-3 per hpf (0-3); Squamous Epithelial Cell,Urine Many per lpf (None-Few)
[2017-03-07] MEDS ORDERED: predniSONE 20 MG TABLET PO ONE (20:30)
[2017-03-07 20:35] LABS: Bacteria,Urine Few per hpf (None-Few); Mucus,Urine Many (Few)
[2017-03-07] MEDS ORDERED: Naloxone 0.4 MG/ML INJ IVP PRN (21:03)
--- NOTE | 2017-03-07 21:15 | Internal Med History&Physical ---
<Faraz Romero T - Last Filed: 03/07/17 22:23> Date of Encounter: 03/07/17 Internal Medicine - H&P: HPI History of present illness: Mr. Fair is a 61 year old male Internal Medicine - H&P: Meds Albuterol Sulfate [Proair Hfa] 2 puff IH QID PRN 01/20/17 [History] Fluticasone Propionate [Flovent Hfa] 1 puff IH AD 01/20/17 [History] Famotidine [Pepcid] 20 mg PO BID #30 tablet 01/22/17 [Rx] Ibuprofen [Motrin] 600 mg PO Q8HR PRN #30 tab 01/22/17 [Rx] Prednisone 03/07/17 [History] 3 Allergy/AdvReac Type Severity Reaction Status Date / Time No Known Allergies Allergy Verified 03/07/17 17:15 All Systems PM: A 10-system review of systems was performed and is negative for pertinent findings except as documented above in the HPI. - Constitutional Vitals: Temp Pulse Resp BP Pulse Ox 98.4 F 97 15 147/87 98 03/07/17 21:29 03/07/17 21:29 03/07/17 21:43 03/07/17 21:29 03/07/17 21:43 Internal Med - H&P Results - Labs CBC & Chem 7: 03/07/17 18:50 03/07/17 18:50 - Attending Attestation I have seen and examined this patient with GINA Monae and discussed the plan of care with him and the patient at the bedside He has a known hx of IV drug use, daily and presented with worsening LE edema and pain which has been progressive since 2 weeks, he also developed shortness of breath worse on exertion Physical exam is significant for normal temperature, for tender LE edema associated with petechiae up to one-third of his legs bilaterally, there is no differential warmth, he has no Janeway lesions or Osler's nodes, no evidence of embolic phenomena at this time, he has tachycardia but no murmurs, he has bibasal rales. Abdomen exam is benign Labs and Imaging reviewed: UA is dirty, CXR is clear, evidence of COPD, Normal WBC and PLT, Mild hypokalemia, no transaminitis A/P Fluid overload COPDE UTI OPiate abuse by IV daily use Low suspicion for IE Known Hep B/C from IVDA *Agree with ceftriaxone, follow 2 sets of blood cultures, obtain TTE, Lasix, Strict I/O, daily weight, CTA, Monitor for withdrawal, Liver USS to r/o Cirrhosis Rest of details as in CLINICAL LAB CLERK documentation <Riki Monaeolena Ulrich - Last Filed: 03/07/17 22:57> Date of Encounter: 03/07/17 Time of Encounter: 21:11 Assessment and Plan (1) CHF (congestive heart failure) Current visit: Yes Status: Acute Patient complaining of dyspnea on exertion and the BLE swelling x 2 weeks Currently in no respiratory distress, on room air without hypoxia No prior cardiac history, no prior cardiac workup, Rales auscultated bilateral posterior bases He appears to be intravascularly depleted but volume overloaded Patient has history of IVDU, presentation is suspicious for endocarditis However I feel he is low risk at this time, no Janeway's lesions, Osler's nodes or murmurs noted No empiric antibiotic coverage for now, awaiting blood culture results CTA to assess for PE and/or septic emboli since he is dyspneic with exertion, CTA results will help to further guide whether or not start empiric antibody coverage Stat echocardiogram Lasix 40 mg IV push twice a day Strict intake and output Daily weight Continuous telemetry, continuous O2 monitoring Trend troponins, CBC and CMP in the morning Qualifiers: Congestive heart failure type: unspecified congestive heart failure type Congestive heart failure chronicity: acute Qualified Code(s): I50.9 - Heart failure, unspecified (2) Dyspnea Current visit: Yes Status: Acute The patient is not hypoxic, and is in no respiratory distress Has a history of COPD. Does not appear to be an acute exacerbation Dyspnea on exertion which began approximately 2 weeks ago No prior cardiac history but admits to new BLE swelling Appears to be cardiac in origin: see plan above Qualifiers: Dyspnea type: dyspnea on exertion Qualified Code(s): R06.09 - Other forms of dyspnea (3) Hepatitis Current visit: Yes Status: Acute History of hepatitis C and hepatitis B. No obvious signs of cirrhosis Denies abdominal pain, only admitting to mild diffuse abdominal discomfort upon palpation Recheck CMP in the morning (4) IVDU (intravenous drug user) Current visit: Yes Status: Acute Current IV drug user. Reports last use prior to arrival. Reports right forearm as preferred injection site Counseling provided regarding risks of drug use, strongly urged to quit (5) COPD (chronic obstructive pulmonary disease) Current visit: Yes Status: Chronic Stable, no wheezing. Patient is not hypoxic or 2 saturation is 93% on room air Dyspneic with exertion and improves with rest I suspect shortness of breath is due to acute congestive heart failure; see above Continue Flovent INH, start DuoNeb INH every 4 hours scheduled Continuous O2 monitoring Qualifiers: COPD type: unspecified COPD Qualified Code(s): J44.9 - Chronic obstructive pulmonary disease, unspecified (6) Tobacco abuse disorder Current visit: Yes Status: Acute Current tobacco user, smoking cessation counseling provided (7) UTI (urinary tract infection) Current visit: Yes Status: Acute Urinalysis revealed small leuk esterase. Patient denies any dysuria, increasing frequency or urgency. No leukocytosis noted Start Rocephin 1 g IV piggyback daily first dose now Qualifiers: Urinary tract infection type: site unspecified Hematuria presence: without hematuria Qualified Code(s): N39.0 - Urinary tract infection, site not specified Internal Medicine - H&P: HPI Chief complaint: dysnpea, acute CHF Admitted From: Home Plans for Post Hospital Care: Home History of present illness: Mr. Fair is a 61 year old male with PMH of arthritis, asthma, COPD and IVDU.. Presents to [facility] today with dyspnea, bilateral lower extremity edema, shortness of breath and bilateral lower extremity hemorrhagic petechia. Patient reports approximately 2 weeks ago he began experiencing shortness of breath, he noticed that the shortness of breath is exacerbated by activity and improved with rest. Denies any prior cardiac history. Reports he has never been diagnosed with endocarditis. Patient denies fever, chills, night sweats, weight gain, chest pain, diaphoresis, unilateral extremity swelling. He has not been hypoxic since arrival, O2 saturations 94% on room air, reporting Christopher distress with activity. Past Med Surg Social Fam HX - Past Medical History Medical history: arthritis, asthma, COPD, other Psychiatric history: no psych history - Past Surgical History Surgical History: other - Social History Smoking Status: Current every day smoker Smokeless Tobacco Status: No Alcohol use: none Drug use: opiates, IV Drug Use - Family History Father Adopted: No Living Status: Hx Family Cardiac Disorders: No Hx Family Respiratory Disorders: No Hx Family Cancer: Yes (Colon cancer) Hx Family GI Disorders: Yes (cancer) Hx Family Endocrine Disorder: No Hx Family Neuromuscular Disorders: No Hx Family Neurologic Disorders: No Hx Family HEENT Disorders: No Hx Family Autoimmune Disorders: No Mother Adopted: No Family Member Ethnicity: Non- Living Status: Hx Family Cardiac Disorders: Yes Hx Family Respiratory Disorders: Yes (copd) Hx Family Cancer: Yes Hx Family GI Disorders: No Hx Family Endocrine Disorder: No Hx Family Neuromuscular Disorders: No Hx Family Neurologic Disorders: No Hx Family HEENT Disorders: No Hx Family Autoimmune Disorders: No All Systems PM: A 10-system review of systems was performed and is negative for pertinent findings except as documented above in the HPI. - Constitutional Constitutional: anorexia, fatigue, no chills, no fever(s) - Cardiovascular Cardiovascular ROS IM: dyspnea on exertion, edema, no chest pain, no diaphoresis , no dyspnea, no irregular heart rhythm, no lightheadedness, no orthopnea, no palpitations, no syncope - Respiratory Respiratory: cough (Nonproductive), dyspnea on exertion, no dyspnea, no wheezing , no pain on inspiration, no chest congestion, no excessive phlegm production, no pain with cough - Gastrointestinal Gastrointestinal: no abdominal pain, no diarrhea, no early satiety, no nausea, no vomiting - Genitourinary Genitourinary ROS male: no dysuria, no flank pain - Musculoskeletal Musculoskeletal ROS IM: no numbness, no tingling - Integumentary Integumentary IM: rash (Bilateral lower extremity hemorrhage or petechia) - Neurological Neurological ROS: no confusion, no convulsions, no focal weakness, no numbness, no tingling, no tremor(s) - Allergic/Immunologic Allergic/Immunologic: no uticaria - Constitutional Vitals: Temp Pulse Resp BP Pulse Ox 98.6 F 102 18 132/94 95 03/07/17 17:15 03/07/17 20:48 03/07/17 20:48 03/07/17 20:48 03/07/17 20:48 General appearance: Present: mild distress, A&O X 3, no acute distress, answers questions appropriately - Head Head exam: Present: atraumatic, normocephalic - Neck Neck exam general surgery: Present: supple, trachea midline. Absent: lymphadenopathy - Respiratory Respiratory exam: Present: rales (Bilateral posterior bases) - Cardiovascular Cardiovascular exam: Present: +S1, +S2, tachycardia. Absent: diastolic murmur, irregular rhythm, JVD, systolic murmur - GI/Abdominal GI/Abdominal exam: Present: normal bowel sounds, soft, tenderness (Nonspecific diffuse mild discomfort), no peritoneal signs. Absent: distended - Extremities Exam Extremities exam: Present: normal capillary refill, radial pulses palpable and symmetrical. Absent: tenderness - Neurological Exam Neurological exam: Present: alert, oriented X3 - Skin Skin exam: Present: petechiae (Bilateral lower extremities), rash. Absent: erythema, excoriation, urticaria, warm Internal Med - H&P Results - Labs CBC & Chem 7: 03/07/17 18:50 03/07/17 18:50 - EKG Data -: EKG Interpreted by Myself EKG shows normal: sinus rhythm Rate: tachycardia - EKG Data EKG comments: 03/07/17 21:20 Sinus tachycardia - Diagnostic Studies Chest x-ray Status: image reviewed by me Additional comments: No acute pulmonary process, including chronic changes of COPD - VTE Reasons for not Prescribing Prophylaxis: Medical contraindication
[2017-03-07] MEDS: Beclomethasone 40mcg MDI IH SCH (21:41)
[2017-03-07] MEDS: Furosemide 40 MG/4 ML VIAL IVP SCH (23:13)
[2017-03-07] MEDS: cefTRIAXone 1,000 MG in Water for inj. (sterile) 10 ML IVP SCH (23:14)
[2017-03-07] MEDS: Ipratropium/Albuterol Neb 3 ML IH SCH (23:38)
[2017-03-08 01:16] LABS: Basophils % 0.2 %; Eosinophils % 0.2 %; Hematocrit 36.2 % (37.5-50.1); Hemoglobin 12.2 g/dL (12.9-16.9); Immature Granulocytes % 0.5 % (0-4); Lymphocytes # 0.5 K/mcL (0.6-4.6); Lymphocytes % 7.3 %; Mean Corpuscular HGB Conc 33.7 g/dL (31.6-35.5); Mean Corpuscular Hemoglobin 30.7 pg (28.0-33.3); Mean Platelet Volume 9.4 fL (9.4-12.4); Monocytes # 0.2 K/mcL (0.0-1.3); Monocytes % 2.4 %; Neutrophils # 5.9 K/mcL (1.6-8.9); Platelet Count 236 K/mcL (140-400); Red Blood Count 3.98 M/mcL (4.19-5.50); Red Cell Distribution Width 13.8 % (11.5-14.5); Segmented Neutrophils % 89.4 %
[2017-03-08 01:33] LABS: Alanine Aminotransferase 35 Units/L (0-55); Albumin 2.8 g/dL (3.5-5.0); Albumin/Globulin Ratio 0.6 (1.1-2.2); Alkaline Phosphatase 94 Units/L (38-126); Aspartate Amino Transferase 55 Units/L (5-34); BUN/Creatinine Ratio 11 (6-26); Bilirubin,Total 1.1 mg/dL (0.2-1.2); Blood Urea Nitrogen 8 mg/dL (8-26); Calcium 8.5 mg/dL (8.6-10.8); Carbon Dioxide 28 mEq/L (19-29); Chloride 95 mEq/L (98-109); Globulin 4.9 g/dL (2.4-3.5); Glucose 170 mg/dL (70-99); Osmolality,Calculated 272 (280-300); Potassium 3.6 mEq/L (3.5-4.5); Sodium 130 mEq/L (136-145); Total Protein 7.7 g/dL (6.0-8.3); eGFR For African Americans > 60 (> 60); eGFR For Non-African Americans > 60 (> 60)
[2017-03-08] MEDS: Ipratropium/Albuterol Neb 3 ML IH SCH ×6 (04:04→23:29)
[2017-03-08] MEDS: cefTRIAXone 1,000 MG in Water for inj. (sterile) 10 ML IVP SCH (08:09)
[2017-03-08] MEDS: Famotidine 20 MG TABLET PO SCH ×2 (08:09→17:22)
[2017-03-08] MEDS: Furosemide 40 MG/4 ML VIAL IVP SCH ×2 (08:09→17:22)
[2017-03-08] MEDS: Beclomethasone 40mcg MDI IH SCH ×2 (08:20→23:29)
[2017-03-08] MEDS ORDERED: Acetaminophen 325 MG TABLET PO PRN (08:32)
--- NOTE | 2017-03-08 10:30 | Internal Med Progress Note ---
Date of Encounter: 03/08/17 Time of Encounter: 10:29 - Assessment and plan (1) CHF (congestive heart failure) Current Visit: Yes Status: Acute Assessment and plan: Pt clinically appears to have CHF. Echo pending. High risk for endocarditis. Continue diuresis as he is tolerating it at this point. Qualifiers: Congestive heart failure type: unspecified congestive heart failure type Congestive heart failure chronicity: acute Qualified Code(s): I50.9 - Heart failure, unspecified (2) Endocarditis Current Visit: Yes Status: Suspected Assessment and plan: ESR markedly elevated. Echo and blood cultures pending. No abx till cultures return as not sure what treating. Continue cardiac supportive care with diuresis. Qualifiers: Endocarditis type: unspecified Chronicity: unspecified Qualified Code(s) : I38 - Endocarditis, valve unspecified (3) UTI (urinary tract infection) Current Visit: Yes Status: Suspected Assessment and plan: [place] pending. Patient asymptomatic. Ceftriaxone has been started. Will await culture results. Qualifiers: Urinary tract infection type: acute cystitis Hematuria presence: without hematuria Qualified Code(s): N30.00 - Acute cystitis without hematuria (4) Hepatitis B infection Current Visit: No Status: Chronic Assessment and plan: Supportive care. Qualifiers: Viral hepatitis chronicity: chronic Hepatic coma status: without hepatic coma Hepatitis delta agent presence: without delta-agent Qualified Code(s): B18.1 - Chronic viral hepatitis B without delta-agent (5) Hepatitis C Current Visit: No Status: Chronic Assessment and plan: Supportive care. Qualifiers: Viral hepatitis chronicity: chronic Qualified Code(s): B18.2 - Chronic viral hepatitis C (6) COPD (chronic obstructive pulmonary disease) Current Visit: Yes Status: Chronic Assessment and plan: Chronic issue. Continue Flovent and aerosols. No need for steroids. Qualifiers: COPD type: unspecified COPD Qualified Code(s): J44.9 - Chronic obstructive pulmonary disease, unspecified (7) IVDU (intravenous drug user) Current Visit: Yes Status: Chronic Assessment and plan: Cessation counselling. (8) Tobacco abuse disorder Current Visit: Yes Status: Chronic Assessment and plan: Cessation counselling. - Subjective Interval history: Mr. Fair is currently admitted for new onset CHF. He is moderate to high risk due to potential for worsening cardiac status. There is a potential for endocarditis and cultures and echo pending. Mr Fair feels less swollen today. Says his feet are beginning to feel better and he is breathing somewhat better as well. No fever or chills. No CP. Some cough. No abd pain at this time. Continues to use IV drugs before admission. - Constitutional Vitals: Temp Pulse Resp BP Pulse Ox 97.6 F 90 16 125/83 96 03/08/17 07:27 03/08/17 07:27 03/08/17 08:21 03/08/17 07:27 03/08/17 08:21 General appearance: Present: A&O X 3, answers questions appropriately - Head Head exam: Present: atraumatic, normocephalic - Eye Eye exam: Present: EOMI, PERRL, conjuntiva pink - ENT ENT exam: Present: mucous membranes dry - Neck Neck exam general surgery: Absent: lymphadenopathy, thyromegaly - Respiratory Respiratory exam: Present: decreased breath sounds, rales. Absent: rhonchi, wheezes Additional comments: Scant bibasilar rales. - Cardiovascular Cardiovascular exam: Present: distant heart sounds, RRR. Absent: tachycardia - GI/Abdominal GI/Abdominal exam: Present: soft. Absent: mass, tenderness - Extremities Exam Extremities exam: Present: pedal edema, warm. Absent: tenderness Additional comments: Edema present bilateral lower extremities. - Neurological Exam Neurological exam: Present: alert, oriented X3, no focal deficits - Skin Skin exam: Present: dry, warm. Absent: rash Internal Medicine: Result - Labs CBC & Chem 7: 03/08/17 00:34 03/08/17 00:34 Labs: Short CBC 03/08/17 Range/Units 00:34 WBC 6.6 (4.3-11.1) K/mcL Hgb 12.2 L (12.9-16.9) g/dL Hct 36.2 L (37.5-50.1) % Plt Count 236 (140-400) K/mcL Neutrophils # 5.9 (1.6-8.9) K/mcL BMP 03/08/17 00:34 Sodium 130 L Potassium 3.6 Chloride 95 L Carbon Dioxide 28 BUN 8 Creatinine 0.70 L Glucose 170 H Calcium 8.5 L Cardiac Enzymes 03/08/17 03/08/17 Range/Units 00:34 05:58 Troponin I 0.01 0.01 (0-0.03) ng/mL Liver Function 03/08/17 Range/Units 00:34 Total Bilirubin 1.1 (0.2-1.2) mg/dL AST 55 H (5-34) Units/L ALT 35 (0-55) Units/L Alkaline Phosphatase 94 (38-126) Units/L Albumin 2.8 L (3.5-5.0) g/dL - ABG Interpretation ABG results: PT/INR, D-dimer PT 17.0 Seconds (9.4-12.1) H 03/07/17 18:50 - VTE Reasons for not Prescribing Prophylaxis: Medical contraindication Consult Discharge Plan - Plan Referrals: Hunter Salazar DO [Primary Care Provider] -
--- NOTE | 2017-03-08 20:02 | Electrocardiograph Report ---
[place] [id number] Test Date: 2017-03-07 Pat Name: Galen Fair Department: 102 Room: 3B44 Gender: M Commercial Coordinator: : [id number] Requested By: Mian Hernandez Order Number: [id number] Reading MD: Antoine Pizarro MD Measurements Intervals [place] Rate: 102 P: 78 VT: 133 QRS: 51 QRSD: 78 T: 60 QT: 327 QTc: 386 Interpretive Statements SINUS TACHYCARDIA MINIMAL VOLTAGE CRITERIA FOR LVH Electronically Signed On 03-08-2017 20:01:10 EST by Antoine Pizarro MD
[2017-03-09] MEDS: Ipratropium/Albuterol Neb 3 ML IH SCH ×6 (04:31→23:47)
[2017-03-09 04:59] LABS: Hematocrit 32.9 % (37.5-50.1); Hemoglobin 10.9 g/dL (12.9-16.9); Mean Corpuscular HGB Conc 33.1 g/dL (31.6-35.5); Mean Corpuscular Hemoglobin 30.3 pg (28.0-33.3); Mean Corpuscular Volume 91.4 fL (83.0-100.0); Platelet Count 272 K/mcL (140-400); Red Cell Distribution Width 13.9 % (11.5-14.5)
[2017-03-09 05:15] LABS: Alanine Aminotransferase 24 Units/L (0-55); Albumin 2.4 g/dL (3.5-5.0); Albumin/Globulin Ratio 0.5 (1.1-2.2); Alkaline Phosphatase 72 Units/L (38-126); Aspartate Amino Transferase 33 Units/L (5-34); BUN/Creatinine Ratio 17 (6-26); Bilirubin,Total 0.4 mg/dL (0.2-1.2); Blood Urea Nitrogen 12 mg/dL (8-26); Calcium 8.3 mg/dL (8.6-10.8); Carbon Dioxide 31 mEq/L (19-29); Chloride 101 mEq/L (98-109); Globulin 4.4 g/dL (2.4-3.5); Glucose 97 mg/dL (70-99); Magnesium 1.5 mg/dL (1.6-2.6); Osmolality,Calculated 286 (280-300); Potassium 3.2 mEq/L (3.5-4.5); Total Protein 6.8 g/dL (6.0-8.3); eGFR For African Americans > 60 (> 60); eGFR For Non-African Americans > 60 (> 60)
[2017-03-09 05:17] LABS: Sodium 138 mEq/L (136-145)
[2017-03-09] MEDS: Famotidine 20 MG TABLET PO SCH ×2 (07:38→16:24)
[2017-03-09] MEDS: cefTRIAXone 1,000 MG in Water for inj. (sterile) 10 ML IVP SCH (07:39)
[2017-03-09] MEDS: Furosemide 40 MG/4 ML VIAL IVP SCH ×2 (07:39→16:25)
[2017-03-09] MEDS: Beclomethasone 40mcg MDI IH SCH ×2 (07:42→19:55)
--- NOTE | 2017-03-09 11:55 | Internal Med Progress Note ---
<Onesimo Cervantes - Last Filed: 03/09/17 11:51> Date of Encounter: 03/09/17 Time of Encounter: 11:30 - Assessment and plan (1) CHF (congestive heart failure) Current Visit: Yes Status: Acute Assessment and plan: Pt clinically appears to have CHF. Echo with only mild left ventricular diastolic dysfunction, otherwise normal, EF = 60%. High risk for endocarditis. Continue diuresis as he is tolerating it at this point. Qualifiers: Congestive heart failure type: unspecified congestive heart failure type Congestive heart failure chronicity: acute Qualified Code(s): I50.9 - Heart failure, unspecified (2) Endocarditis Current Visit: Yes Status: Suspected Assessment and plan: ESR markedly elevated. Echo normal. Blood cultures pending. No abx till cultures return as not sure what treating. Continue cardiac supportive care with diuresis. Qualifiers: Endocarditis type: unspecified Chronicity: unspecified Qualified Code(s) : I38 - Endocarditis, valve unspecified (3) UTI (urinary tract infection) Current Visit: Yes Status: Suspected Assessment and plan: Culure negative. Patient asymptomatic Qualifiers: Urinary tract infection type: acute cystitis Hematuria presence: without hematuria Qualified Code(s): N30.00 - Acute cystitis without hematuria (4) Hepatitis B infection Current Visit: No Status: Chronic Assessment and plan: Supportive care. Qualifiers: Viral hepatitis chronicity: chronic Hepatic coma status: without hepatic coma Hepatitis delta agent presence: without delta-agent Qualified Code(s): B18.1 - Chronic viral hepatitis B without delta-agent (5) Hepatitis C Current Visit: No Status: Chronic Assessment and plan: Supportive care. Qualifiers: Viral hepatitis chronicity: chronic Qualified Code(s): B18.2 - Chronic viral hepatitis C (6) COPD (chronic obstructive pulmonary disease) Current Visit: Yes Status: Chronic Assessment and plan: Chronic issue. Continue Flovent and aerosols. No need for steroids. Qualifiers: COPD type: unspecified COPD Qualified Code(s): J44.9 - Chronic obstructive pulmonary disease, unspecified (7) IVDU (intravenous drug user) Current Visit: Yes Status: Chronic Assessment and plan: Cessation counselling. (8) Tobacco abuse disorder Current Visit: Yes Status: Chronic Assessment and plan: Cessation counselling. - Subjective Interval history: Mr. Fair is currently admitted for new onset CHF. He is moderate to high risk due to potential for worsening cardiac status. There is a potential for endocarditis and cultures are pending. Mr Fair is sitting comfortably in bed, he says his feet are nearly back to normal and breathing as is his breathing. No fever or chills. No CP. Cough nearly resolved. No abd pain at this time. Admits to recent drug use including cocaine and IV heroin prior to admission - Constitutional Vitals: Temp Pulse Resp BP Pulse Ox 98.2 F 93 17 127/77 100 03/09/17 11:23 03/09/17 11:23 03/09/17 11:23 03/09/17 11:23 03/09/17 11:23 General appearance: Present: A&O X 3, answers questions appropriately - Head Head exam: Present: atraumatic, normocephalic - Eye Eye exam: Present: PERRL, conjuntiva pink, sclera anicteric - Neck Neck exam general surgery: Absent: lymphadenopathy, thyromegaly - Respiratory Respiratory exam: Present: decreased breath sounds, CTAB, rales. Absent: accessory muscle use, rhonchi, wheezes - Cardiovascular Cardiovascular exam: Present: RRR. Absent: tachycardia - GI/Abdominal GI/Abdominal exam: Present: normal bowel sounds, soft. Absent: distended, tenderness - Extremities Exam Extremities exam: Present: pedal edema (minimal edema right foot), warm, radial pulses palpable and symmetrical - Neurological Exam Neurological exam: Present: oriented X3, no focal deficits - Skin Skin exam: Present: dry, intact Internal Medicine: Result - Labs CBC & Chem 7: 03/09/17 04:28 03/09/17 04:28 Labs: Short CBC 03/09/17 Range/Units 04:28 WBC 6.3 (4.3-11.1) K/mcL Hgb 10.9 L (12.9-16.9) g/dL Hct 32.9 L (37.5-50.1) % Plt Count 272 (140-400) K/mcL BMP 03/09/17 04:28 Sodium 138 D Potassium 3.2 L Chloride 101 Carbon Dioxide 31 H BUN 12 Creatinine 0.70 L Glucose 97 Calcium 8.3 L Liver Function 03/09/17 Range/Units 04:28 Total Bilirubin 0.4 (0.2-1.2) mg/dL AST 33 (5-34) Units/L ALT 24 (0-55) Units/L Alkaline Phosphatase 72 (38-126) Units/L Albumin 2.4 L (3.5-5.0) g/dL - ABG Interpretation ABG results: PT/INR, D-dimer PT 17.0 Seconds (9.4-12.1) H 03/07/17 18:50 - Impressions Impressions Echocardiogram 03/08/17 21:02 Impressions: LVEF 60%. Mild left ventricular diastolic dysfunction. Normal right ventricular structure and function. No significant valvular dysfunction. No pulmonary hypertension. Left Ventricular Wall Motion: Rest Echo Findings All wall segments showed normal motion. Findings: Study Quality * Technically adequate exam. ECG Findings * Normal sinus rhythm. Left Ventricle * LVEF 60%. * Mild left ventricular diastolic dysfunction. * Normal LV chamber size, wall thickness and function. Right Ventricle * Normal right ventricular structure and function. Left Atrium * Normal left atrial size. Right Atrium * Normal right atrial size. Aortic Valve * No aortic regurgitation. * Aortic valve not well visualized. * No aortic stenosis. Mitral Valve * No mitral regurgitation. * No mitral stenosis. * Mildly sclerotic mitral valve leaflets. Tricuspid Valve * Normal tricuspid valve structure. * Trace tricuspid regurgitation. * Estimated RA pressure is 3 mmHg. * Estimated RVSP is 25 mmHg. * No pulmonary hypertension. Pulmonic Valve * Pulmonic valve is not well visualized. * No pulmonic stenosis. * No pulmonic regurgitation. Pulmonary Artery * Pulmonary artery not well visualized. Aorta * Normally sized aortic root. Pericardium * There is no pericardial effusion present. Interatrial Septum * No evidence of PFO by color Doppler. IVC * Normal IVC dimensions and inspiratory collapse. - VTE Reasons for not Prescribing Prophylaxis: Medical contraindication Consult Discharge Plan - Plan Referrals: Hunter Salazar DO [Primary Care Provider] - <Marcelo Bell - Last Filed: 03/09/17 17:13> Date of Encounter: 03/09/17 - Assessment and plan (1) CHF (congestive heart failure) Current Visit: Yes Status: Acute Qualifiers: Congestive heart failure type: diastolic Congestive heart failure chronicity: acute on chronic Qualified Code(s): I50.33 - Acute on chronic diastolic (congestive) heart failure (2) Endocarditis Current Visit: Yes Status: Ruled-out Qualifiers: Endocarditis type: unspecified Chronicity: unspecified Qualified Code(s) : I38 - Endocarditis, valve unspecified (3) UTI (urinary tract infection) Current Visit: Yes Status: Suspected Qualifiers: Urinary tract infection type: acute cystitis Hematuria presence: without hematuria Qualified Code(s): N30.00 - Acute cystitis without hematuria (4) Hepatitis B infection Current Visit: No Status: Chronic Qualifiers: Viral hepatitis chronicity: chronic Hepatic coma status: without hepatic coma Hepatitis delta agent presence: without delta-agent Qualified Code(s): B18.1 - Chronic viral hepatitis B without delta-agent (5) Hepatitis C Current Visit: No Status: Chronic Qualifiers: Viral hepatitis chronicity: chronic Qualified Code(s): B18.2 - Chronic viral hepatitis C (6) COPD (chronic obstructive pulmonary disease) Current Visit: Yes Status: Chronic Qualifiers: COPD type: unspecified COPD Qualified Code(s): J44.9 - Chronic obstructive pulmonary disease, unspecified (7) IVDU (intravenous drug user) Current Visit: Yes Status: Chronic (8) Tobacco abuse disorder Current Visit: Yes Status: Chronic - Constitutional Vitals: Temp Pulse Resp BP Pulse Ox 98.0 F 77 17 143/82 98 03/09/17 16:35 03/09/17 16:35 03/09/17 16:35 03/09/17 16:35 03/09/17 16:35 Internal Medicine: Result - Labs CBC & Chem 7: 03/09/17 04:28 03/09/17 04:28 Labs: Short CBC 03/09/17 Range/Units 04:28 WBC 6.3 (4.3-11.1) K/mcL Hgb 10.9 L (12.9-16.9) g/dL Hct 32.9 L (37.5-50.1) % Plt Count 272 (140-400) K/mcL BMP 03/09/17 04:28 Sodium 138 D Potassium 3.2 L Chloride 101 Carbon Dioxide 31 H BUN 12 Creatinine 0.70 L Glucose 97 Calcium 8.3 L Liver Function 03/09/17 Range/Units 04:28 Total Bilirubin 0.4 (0.2-1.2) mg/dL AST 33 (5-34) Units/L ALT 24 (0-55) Units/L Alkaline Phosphatase 72 (38-126) Units/L Albumin 2.4 L (3.5-5.0) g/dL - ABG Interpretation ABG results: PT/INR, D-dimer PT 17.0 Seconds (9.4-12.1) H 03/07/17 18:50 - Attending Attestation I examined this patient and my medical decision-making was reviewed with the Resident Physician on 03/09/17. I agree with the documented findings, disposition and treatment plan as described except to the extent set forth below. Mr Fair is currently admitted for edema and concern for CHF and endocarditis. He remains moderate to high risk due to potential for worsening cardiac status. Mr Fair is feeling better overall. His edema has been improving. No CP or SOB. No fever or chills. Appetite OK. No other acute issues. Exam Alert. Comfortable Mucus membranes dry Heart reg No wheeze Abd soft Edema improving. I/P 1. CHF - echo OK. ? diastolic. ? if related to cirrhosis - U/S pending. 2. Hepatitis chronic 3. IVDU Further diagnoses and plan as above.
[2017-03-10] MEDS: Ipratropium/Albuterol Neb 3 ML IH SCH ×6 (04:01→23:28)
[2017-03-10] MEDS: Famotidine 20 MG TABLET PO SCH ×2 (07:44→16:44)
[2017-03-10] MEDS: Furosemide 40 MG/4 ML VIAL IVP SCH (07:44)
[2017-03-10] MEDS: Beclomethasone 40mcg MDI IH SCH ×2 (08:08→19:45)
--- NOTE | 2017-03-10 16:15 | Internal Med Progress Note ---
Date of Encounter: 03/10/17 Time of Encounter: 16:13 - Assessment and plan (1) Bilateral edema of lower extremity Current Visit: Yes Status: Acute Assessment and plan: Galen Uriarte is a 61 y/o male with PMH Hepatitis B&C, COPD and IV DU who presented to [facility] on 03/07/2017 with complaints of bilateral lower extremity edema. He was admitted for further workup and treatment. 1. Bilateral lower extremity edema: With severe pitting edema to bilateral feet. TTE with EF 60%, mild diastolic dysfunction. BNP normal. Suspect secondary to hypoalbuminemia. Edema resolved with IV diuresis. Encourage high protein diet. Stop IV Lasix. Monitor fluid status. 2. Elevated ESR: Sedimentation rate greater than 130, CRP 21. No obvious infectious or inflammatory source at this time. Chest x-ray without evidence of pneumonia, UA unremarkable. No dental caries. Concern for possible endocarditis with history of IV drug use. TTE with no significant valvular dysfunction. Afebrile, no elevated WBC. Blood cx's with NGTD. Consult ID 3. Hepatitis: hx Hep B, C. LFTs stable. Liver US with gallbladder sludge without evidence of acute cholecystitis, no evidence of cirrhosis or other hepatic abnormality. 4. COPD: per hx. No evidence of exacerbation 5. IVDA: per hx. Patient admits to injecting heroin. Cessation advised (2) Elevated erythrocyte sedimentation rate Current Visit: Yes Status: Acute (3) COPD (chronic obstructive pulmonary disease) Current Visit: Yes Status: Chronic Qualifiers: COPD type: unspecified COPD Qualified Code(s): J44.9 - Chronic obstructive pulmonary disease, unspecified (4) Hepatitis C Current Visit: No Status: Chronic Qualifiers: Viral hepatitis chronicity: chronic Qualified Code(s): B18.2 - Chronic viral hepatitis C (5) IVDU (intravenous drug user) Current Visit: Yes Status: Chronic (6) UTI (urinary tract infection) Current Visit: Yes Status: Suspected Qualifiers: Urinary tract infection type: acute cystitis Hematuria presence: without hematuria Qualified Code(s): N30.00 - Acute cystitis without hematuria - Subjective Interval history: Seen and examined bedside patient is new to me, information obtained from chart review and patient report. Patient says swelling to legs as resolved and edema is resolved. Says he feels better when like to go home today. No obvious infectious source. Patient denies fevers or chills, no cough. No sores or wounds. No dental caries. No dysuria - Constitutional Vitals: Temp Pulse Resp BP Pulse Ox 98.0 F 98 16 144/79 99 03/10/17 14:49 03/10/17 14:49 03/10/17 15:47 03/10/17 14:49 03/10/17 15:47 General appearance: Present: A&O X 3, pleasant, answers questions appropriately - Head Head exam: Present: atraumatic, normocephalic - Eye Eye exam: Present: PERRL, conjuntiva pink, sclera anicteric Pupils: Present: PERRL - Neck Neck exam general surgery: Present: supple, trachea midline. Absent: lymphadenopathy - Respiratory Respiratory exam: Present: CTAB. Absent: accessory muscle use, rales, rhonchi, wheezes - Cardiovascular Cardiovascular exam: Present: RRR, +S1, +S2. Absent: diastolic murmur, gallop, rubs, systolic murmur - GI/Abdominal GI/Abdominal exam: Present: normal bowel sounds, soft, no peritoneal signs. Absent: distended, tenderness - Extremities Exam Extremities exam: Present: warm, radial pulses palpable and symmetrical. Absent : calf tenderness, cyanotic, pedal edema - Neurological Exam Neurological exam: Present: CN II-XII intact, oriented X3, no focal deficits. Absent: pronater drift, facial droop, speech deficit - Skin Skin exam: Present: dry, intact Internal Medicine: Result - Labs CBC & Chem 7: 03/09/17 04:28 03/09/17 04:28 - ABG Interpretation ABG results: PT/INR, D-dimer PT 17.0 Seconds (9.4-12.1) H 03/07/17 18:50 - Impressions Impressions Liver Ultrasound 03/09/17 19:00 IMPRESSION: 1. No convincing evidence of cirrhosis or other hepatic abnormality. 2. Gallbladder sludge without evidence of acute cholecystitis. D/ / Keegan Booker MD / Keegan Booker MD Interpreting Provider: Keegan Booker MD - VTE Reasons for not Prescribing Prophylaxis: Medical contraindication Consult Discharge Plan - Plan Referrals: Hunter Salazar DO [Primary Care Provider] -
[2017-03-11] MEDS: Ipratropium/Albuterol Neb 3 ML IH SCH ×3 (03:18→11:48)
[2017-03-11 05:39] LABS: Hematocrit 34.5 % (37.5-50.1); Hemoglobin 11.3 g/dL (12.9-16.9); Mean Corpuscular HGB Conc 32.8 g/dL (31.6-35.5); Mean Corpuscular Hemoglobin 30.5 pg (28.0-33.3); Mean Platelet Volume 9.6 fL (9.4-12.4); Platelet Count 262 K/mcL (140-400); Red Blood Count 3.71 M/mcL (4.19-5.50); Red Cell Distribution Width 14.4 % (11.5-14.5)
[2017-03-11 05:50] LABS: BUN/Creatinine Ratio 25 (6-26); Blood Urea Nitrogen 17 mg/dL (8-26); Calcium 8.5 mg/dL (8.6-10.8); Carbon Dioxide 30 mEq/L (19-29); Chloride 101 mEq/L (98-109); Glucose 90 mg/dL (70-99); Osmolality,Calculated 281 (280-300); Potassium 4.1 mEq/L (3.5-4.5); Sodium 135 mEq/L (136-145); eGFR For African Americans > 60 (> 60); eGFR For Non-African Americans > 60 (> 60)
[2017-03-11] MEDS: Beclomethasone 40mcg MDI IH SCH (07:56)
[2017-03-11] MEDS: Famotidine 20 MG TABLET PO SCH (10:32)
[2017-03-11 11:49] VITALS: BP 134/83
--- NOTE | 2017-03-11 12:41 | Infectious Disease Consult ---
Date of Encounter: 03/11/17 Time of Encounter: 12:38 Assessment and Plan (1) Elevated erythrocyte sedimentation rate Status: Acute Assessment and plan: Etiology unclear, but low index of suspicion for infectious etiology. The patient has no SIRS criteria and no focal symptoms to indicate infection. TTE negative and no endocarditis stigmata noted on exam. Repeat ESR improved. Blood cultures drawn 03/07/17 are NGTD x 2 sets. Urine culture is negative. Will check HIV status and Hepatitis profile with Hep C viral load to ensure that there is no acute hepatitis flare, but consider outpatient GI referral for additional treatment of Hep C. Recommend follow up with PCP for repeat labs and if ESR remains elevated, consider rheumatology referral. Would not recommend starting antibiotics at this point. (2) Bilateral edema of lower extremity Status: Resolved Assessment and plan: Likely secondary to diastolic CHF. Resolved. (3) IVDU (intravenous drug user) Status: Chronic Assessment and plan: Reports a long-standing history of injecting Opana. Reports known Hep B and C but has not had treatment. Check HIV and Hepatitis profile. (4) Hepatitis Status: Acute Assessment and plan: Known Hep B and C. (5) Tobacco abuse disorder Status: Chronic Infectious Disease HPI - Data of Consult Patient: new to practice Consult date: 03/11/17 Requesting Physician: Marcelo Bell DO Primary Care Provider: Hunter Salazar DO - Consult Narrative Reason for consult: Elevated ESR History of present illness: Mr. Fair is a 61 year old male with a past medical history of COPD, hepatitis B, hepatitis C, osteoarthritis, and asthma. The patient was admitted to the hospital March 07 for bilateral lower extremity swelling. We are consulted on March 11 for further recommendations regarding an elevated ESR. Tommy, the patient is a 61-year-old male with past medical history as stated above. The patient presented to the emergency department with complaints of 2 month history of progressive swelling to the bilateral lower extremities that got severely worse and painful over the past 2 weeks. He reported associated chronic shortness of breath and a chronic cough. Arrival, the patient was afebrile, but he was tachycardic. He was otherwise hemodynamically stable. Laboratory studies reveal a normal white blood cell count with a mildly elevated AST. Troponin was negative. ESR was greater than 130. Urinalysis was obtained and appeared contaminated. Chest x-ray was negative. CTA of the chest revealed findings consistent with emphysema and pulmonary fibrosis, but no acute abnormality. Blood cultures were obtained 2 sets. The patient was admitted to the hospital for further evaluation. Since admission, the patient has remained afebrile and hemodynamically stable. He was placed on IV diuretics which has improved his swelling and pain to the lower extremities markedly. He did have a bilateral lower extremity venous Doppler study that was negative. He also had a liver ultrasound that showed some gallbladder sludge, but was otherwise negative. Repeat ESR level yesterday was 118 and CRP was 21. The patient has not been on any antibiotics since admission. Blood cultures have remained no growth to date. Urine culture came back negative as well. We've been asked to evaluate and make further recommendations. During my exam today, the patient endorses a history as stated above. He denies any fevers or chills or rigors. He denies any headache or neck pain. He denies any congestion, earache, or sore throat. He does endorse a chronic history of shortness of breath and nonproductive cough related to his COPD and tobacco use. He denies any chest pain. He denies any nausea, vomiting, diarrhea, or constipation. He denies any pain in his back or extremities except as previously mentioned. He states the swelling was legs about mcfp up his calf and down into his feet. He denies any specific joint redness or swelling or pain , but does report pain with ambulation when his legs were swollen. He does report that his leg swelling to normal and he is pain-free at this time. He does report a history of IV cocaine use, but states it is does not share needles. He does report a history of hepatitis B and C for which he has not been treated. He states he is sexually active with one female partner. He was recently incarcerated in a group home for about 9 months and was released in June. He also reports that he spent 4 months in [facility] and was released in January. He denies any oral thrush or new skin lesions. CC: Marcelo Bell, DO Past Med Surg Social Fam HX - Past Medical History Source: patient, old records reviewed, nursing notes reviewed Medical history: arthritis, asthma, COPD, hepatitis (Hep B and C, treatment na ve), other Psychiatric history: no psych history - Past Surgical History Surgical History: other (Right hand surgery, left parotidectomy) - Social History Smoking Status: Current every day smoker Packs per day: 0.25 Smokeless Tobacco Status: No Alcohol use: none Drug use: opiates, IV Drug Use Occupational status: unemployed Current living situation: Home - Independent Activity Level: Independent ambulation Recent Out of Country Travel Within the Last 8 Weeks: No Exposure or Possible Exposure to Illness During Travel: No - Family History Father Adopted: No Living Status: Hx Family Cardiac Disorders: No Hx Family Respiratory Disorders: No Hx Family Cancer: Yes (Colon cancer) Hx Family GI Disorders: Yes (cancer) Hx Family Endocrine Disorder: No Hx Family Neuromuscular Disorders: No Hx Family Neurologic Disorders: No Hx Family HEENT Disorders: No Hx Family Autoimmune Disorders: No Mother Adopted: No Family Member Ethnicity: Non- Living Status: Hx Family Cardiac Disorders: Yes Hx Family Respiratory Disorders: Yes (copd) Hx Family Cancer: Yes Hx Family GI Disorders: No Hx Family Endocrine Disorder: No Hx Family Neuromuscular Disorders: No Hx Family Neurologic Disorders: No Hx Family HEENT Disorders: No Hx Family Autoimmune Disorders: No Infectious Disease-CN:Meds Fluticasone Propionate [Flovent Hfa] 1 puff IH BID 01/20/17 [History] Famotidine [Pepcid] 20 mg PO BID #30 tablet 01/22/17 [Rx] Ibuprofen [Motrin] 600 mg PO Q8HR PRN #30 tab 01/22/17 [Rx] 3 Allergy/AdvReac Type Severity Reaction Status Date / Time No Known Allergies Allergy Verified 03/07/17 17:15 All systems: reviewed and no additional remarkable complaints except as stated Exam - Constitutional Vitals: Temp Pulse Resp BP Pulse Ox 98.4 F 96 16 134/83 98 03/11/17 11:48 03/11/17 11:48 03/11/17 11:48 03/11/17 11:48 03/11/17 11:48 General appearance: cooperative, no acute distress, thin - Head Head exam: Present: atraumatic, normal inspection, normocephalic - Eye Eye exam: Present: EOMI, normal appearance, PERRL Pupils: Present: normal accommodation Additional comments: No subconjunctival hemorrhage noted. - ENT ENT exam: Present: mucous membranes moist - Neck Neck exam: Present: normal inspection - Respiratory Respiratory exam: Present: CTAB. Absent: rales, respiratory distress, rhonchi, wheezes - Cardiovascular Cardiovascular exam: Present: RRR, +S1, +S2. Absent: diastolic murmur, systolic murmur - GI/Abdominal GI/Abdominal exam: Present: normal bowel sounds, soft. Absent: distended, tenderness - Extremities Exam Extremities exam: Present: full ROM, normal inspection. Absent: joint swelling , pedal edema, tenderness - Back Exam Back exam: Present: normal inspection. Absent: paraspinal tenderness, vertebral tenderness - Neurological Exam Neurological exam: Present: alert, oriented X3, no focal deficits - Psychiatric Psychiatric exam: Present: normal affect, normal mood - Skin Skin exam: Present: dry, intact, normal color, warm Additional comments: Multiple injection sites noted to the RUE without redness, warmth, or erythema noted. No endocarditis stigmata noted. Infectious Disease CN: Results - Labs CBC & Chem 7: 03/11/17 04:54 03/11/17 04:54 - VTE Reasons for not Prescribing Prophylaxis: Medical contraindication Consult Discharge Plan - Plan Referrals: Hunter Salazar DO [Primary Care Provider] - 03/17/17 1:00 pm
--- NOTE | 2017-03-11 14:54 | Internal Med Progress Note ---
Date of Encounter: 03/11/17 Time of Encounter: 14:51 - Assessment and plan (1) Bilateral edema of lower extremity Current Visit: Yes Status: Resolved Assessment and plan: Galen Uriarte is a 61 y/o male with PMH Hepatitis B&C, COPD and IV DU who presented to [facility] on 03/07/2017 with complaints of bilateral lower extremity edema. He was admitted for further workup and treatment. 1. Bilateral lower extremity edema: With severe pitting edema to bilateral feet. TTE with EF 60%, mild diastolic dysfunction. BNP normal. Suspect secondary to hypoalbuminemia. Edema resolved with IV diuresis. Encourage high protein diet. Stop IV Lasix. Monitor fluid status. 2. Elevated ESR: Sedimentation rate greater than 130, CRP 21. No obvious infectious or inflammatory source at this time. Chest x-ray without evidence of pneumonia, UA unremarkable. No dental caries. TTE with no significant valvular dysfunction, no endocarditis stigmata. Afebrile, no elevated WBC. Blood cx's with NGTD. HIV ID does not suspect infectious etiology. No indication for ATB at this time. HIV, hepatitis panel pending 3. Hepatitis: hx Hep B, C. LFTs stable. Liver US with gallbladder sludge without evidence of acute cholecystitis, no evidence of cirrhosis or other hepatic abnormality. No acute needs. Can follow up outpatient. 4. COPD: per hx. No evidence of exacerbation 5. IVDA: per hx. Patient admits to injecting heroin. Cessation advised (2) Elevated erythrocyte sedimentation rate Current Visit: Yes Status: Acute (3) COPD (chronic obstructive pulmonary disease) Current Visit: Yes Status: Chronic Assessment and plan: Chronic issue. Continue Flovent and aerosols. No need for steroids. Qualifiers: COPD type: unspecified COPD Qualified Code(s): J44.9 - Chronic obstructive pulmonary disease, unspecified (4) Hepatitis C Current Visit: No Status: Chronic Qualifiers: Viral hepatitis chronicity: chronic Qualified Code(s): B18.2 - Chronic viral hepatitis C (5) IVDU (intravenous drug user) Current Visit: Yes Status: Chronic (6) UTI (urinary tract infection) Current Visit: Yes Status: Suspected Qualifiers: Urinary tract infection type: acute cystitis Hematuria presence: without hematuria Qualified Code(s): N30.00 - Acute cystitis without hematuria - Subjective Interval history: Seen and examined bedside. She says he feels fine like to discharge home if possible today. He is agreeable to stay for ID consultation. He has no complaints, specifically denies chest pain, no shortness of breath. - Constitutional Vitals: Temp Pulse Resp BP Pulse Ox 98.4 F 96 16 134/83 98 03/11/17 11:48 03/11/17 11:48 03/11/17 11:48 03/11/17 11:48 03/11/17 11:48 General appearance: Present: A&O X 3, pleasant, answers questions appropriately - Head Head exam: Present: atraumatic, normocephalic - Eye Eye exam: Present: PERRL, conjuntiva pink, sclera anicteric Pupils: Present: PERRL - Neck Neck exam general surgery: Present: supple, trachea midline. Absent: lymphadenopathy - Respiratory Respiratory exam: Present: CTAB. Absent: accessory muscle use, rales, rhonchi, wheezes - Cardiovascular Cardiovascular exam: Present: RRR, +S1, +S2. Absent: diastolic murmur, gallop, rubs, systolic murmur - GI/Abdominal GI/Abdominal exam: Present: normal bowel sounds, soft, no peritoneal signs. Absent: distended, tenderness - Extremities Exam Extremities exam: Present: warm, radial pulses palpable and symmetrical. Absent : calf tenderness, cyanotic, pedal edema - Neurological Exam Neurological exam: Present: CN II-XII intact, oriented X3, no focal deficits. Absent: pronater drift, facial droop, speech deficit - Skin Skin exam: Present: dry, intact Internal Medicine: Result - Labs CBC & Chem 7: 03/11/17 04:54 03/11/17 04:54 Labs: Short CBC 03/11/17 Range/Units 04:54 WBC 6.4 (4.3-11.1) K/mcL Hgb 11.3 L (12.9-16.9) g/dL Hct 34.5 L (37.5-50.1) % Plt Count 262 (140-400) K/mcL BMP 03/11/17 04:54 Sodium 135 L Potassium 4.1 Chloride 101 Carbon Dioxide 30 H BUN 17 Creatinine 0.69 L Glucose 90 Calcium 8.5 L - ABG Interpretation ABG results: PT/INR, D-dimer PT 17.0 Seconds (9.4-12.1) H 03/07/17 18:50 - VTE Reasons for not Prescribing Prophylaxis: Medical contraindication Consult Discharge Plan - Plan Referrals: Hunter Salazar DO [Primary Care Provider] - 03/17/17 1:00 pm
[2017-03-11 15:32] LABS: HIV-1&2 Antibody & p24 Ag Nonreactive (Nonreactive); Hepatitis A Antibody IgM Nonreactive (Nonreactive)
[2017-03-11 15:50] LABS: Hepatitis B Core IgM Reactive (Nonreactive); Hepatitis B Surface Antigen Reactive (Nonreactive); Hepatitis C Virus Antibody Reactive (Nonreactive)
[2017-03-15 17:26] LABS: HCV Quant Interpretation NOT DETECTED (Not Detected)
--- NOTE | 2017-04-14 07:30 | Discharge Summary ---
Date of Encounter: 03/11/17 Time of Encounter: 18:00 - Discharge Diagnosis (1) Bilateral edema of lower extremity Priority: Primary Status: Resolved Comments: Galen Uriarte is a 61 y/o male with PMH Hepatitis B&C, COPD and IV DU who presented to [facility] on 03/07/2017 with complaints of bilateral lower extremity edema. He was admitted for further workup and treatment. 1. Bilateral lower extremity edema: With severe pitting edema to bilateral feet. TTE with EF 60%, mild diastolic dysfunction. BNP normal. Suspect secondary to hypoalbuminemia. Edema resolved with IV diuresis. Encourage high protein diet. Stop IV Lasix. Monitor fluid status. Patient left AMA on 2016 (2) Elevated erythrocyte sedimentation rate Priority: Primary Status: Acute Comments: 2. Elevated ESR: Sedimentation rate greater than 130, CRP 21. No obvious infectious or inflammatory source at this time. Chest x-ray without evidence of pneumonia, UA unremarkable. No dental caries. TTE with no significant valvular dysfunction, no endocarditis stigmata. Afebrile, no elevated WBC. Blood cx's with NGTD. ID does not suspect infectious etiology. No indication for ATB at this time. HIV, hepatitis panel pending (3) Hepatitis C Priority: Secondary Status: Chronic Comments: hx Hep B, C. LFTs stable. Liver US with gallbladder sludge without evidence of acute cholecystitis, no evidence of cirrhosis or other hepatic abnormality. No acute needs. Can follow up outpatient. Qualifiers: Viral hepatitis chronicity: chronic Qualified Code(s): B18.2 - Chronic viral hepatitis C (4) COPD (chronic obstructive pulmonary disease) Priority: Secondary Status: Chronic Comments: per hx. No evidence of exacerbation Qualifiers: COPD type: unspecified COPD Qualified Code(s): J44.9 - Chronic obstructive pulmonary disease, unspecified (5) IVDU (intravenous drug user) Priority: Secondary Status: Chronic Comments: per hx. Patient admits to injecting heroin. Cessation advised - Discharge Medications Home Medications: Fluticasone Propionate [Flovent Hfa] 1 puff IH BID 01/20/17 [History] Famotidine [Pepcid] 20 mg PO BID #30 tablet 01/22/17 [Rx] Ibuprofen [Motrin] 600 mg PO Q8HR PRN #30 tab 01/22/17 [Rx] Allergies/Adverse Reactions: 3 Allergy/AdvReac Type Severity Reaction Status Date / Time No Known Allergies Allergy Verified 03/07/17 17:15 Date of admission: 03/07/17 21:03 Primary care physician: Hunter Salazar DO Consults: 03/07/17 21:52 Consult to Snuff Container Inspector [CONS] Routine Reason for SW Consult: On parol/probation. IV drug user 03/10/17 16:20 Consult to Invasive Line Access Team [CONS] Routine Reason for Consult: iv line placement Line Type: EPIV 03/10/17 16:35 Consult to Infectious Diseases [CONS] Routine Consulting Provider: Infectious Disease Noni Reason for Consult: Elevated ESR, CRP Call Completed: Yes Discharging clinician: Martha Villafana Anticipated date of discharge: 03/11/17 - Patient Status Disposition: Left Against Medical Advice Condition: Good Functional capacity at discharge: independent ambulation Overall status at discharge: patient is back to baseline - Discharge Instructions Follow Up With: Hunter Salazar DO [Primary Care Provider] - 03/17/17 1:00 pm - Diet and Activity Activity: increase activity as tolerated Diet: advance to your usual diet Interval History: See 03/11/2017 for interval history Hospital course: See assessment and plan for hospital course. Patient left AMA on 03/11/2017 - Time Spent with Patient Total time spent providing and/or coordinating discharge services: - Constitutional Vitals: Temp Pulse Resp BP Pulse Ox 98.4 F 96 16 134/83 98 03/11/17 11:48 03/11/17 11:48 03/11/17 11:48 03/11/17 11:48 03/11/17 11:48 General appearance: Present: A&O X 3, pleasant, answers questions appropriately - Head Head exam: Present: atraumatic, normocephalic - Eye Eye exam: Present: PERRL, conjuntiva pink, sclera anicteric Pupils: Present: PERRL - Neck Neck exam general surgery: Present: supple, trachea midline. Absent: lymphadenopathy - Respiratory Respiratory exam: Present: CTAB. Absent: accessory muscle use, rales, rhonchi, wheezes - Cardiovascular Cardiovascular exam: Present: RRR, +S1, +S2. Absent: diastolic murmur, gallop, rubs, systolic murmur - GI/Abdominal GI/Abdominal exam: Present: normal bowel sounds, soft, no peritoneal signs. Absent: distended, tenderness - Extremities Exam Extremities exam: Present: warm, radial pulses palpable and symmetrical. Absent : calf tenderness, cyanotic, pedal edema - Neurological Exam Neurological exam: Present: CN II-XII intact, oriented X3, no focal deficits. Absent: pronater drift, facial droop, speech deficit - Skin Skin exam: Present: dry, intact - VTE Reasons for not Prescribing Prophylaxis: Medical contraindication
== END 2017-03-11 15:35 | disposition left against medical advice (07) | DRG 194 ==
LOC: EMEROO 17:13 → 3BNU 17:13 → SUATTDRO 21:03
PROVIDERS: ADMIT Internal Medicine; ATTEND Internal Medicine

== ENCOUNTER 2019-10-21 19:38 | Observation (INO) ==
[2019-10-21] MEDS ORDERED: Ondansetron 4 MG/2 ML VIAL IVP ONE (19:52)
[2019-10-21] MEDS ORDERED: Pantoprazole 80 MG in 0.9 % Sodium Chloride 50 ML IVPB ONE (19:52)
[2019-10-21] MEDS ORDERED: 0.9 % Sodium Chloride 500 ML IVC ONE (19:54)
[2019-10-21] MEDS ORDERED: Pantoprazole 40 MG in 0.9 % Sodium Chloride Mini Bag 100 ML IVC SCH (20:00)
[2019-10-21 20:23] LABS: Basophils % 0.3 %; Eosinophils % 0.3 %; Hematocrit 19.7 % (37.5-50.1); Hemoglobin 6.1 g/dL (12.9-16.9); Immature Granulocytes % 1.2 % (0-4); Lymphocytes # 1.2 K/mcL (0.6-4.6); Mean Corpuscular Hemoglobin 28.5 pg (28.0-33.3); Mean Corpuscular Volume 92.1 fL (83.0-100.0); Mean Platelet Volume 9.8 fL (9.4-12.4); Monocytes # 1.1 K/mcL (0.0-1.3); Monocytes % 10.6 %; Neutrophils # 7.6 K/mcL (1.6-8.9); Nucleated Red Blood Cells 0.2 /100 WBC (0); Platelet Count 307 K/mcL (140-400); Red Blood Count 2.14 M/mcL (4.19-5.50); Red Cell Distribution Width 14.4 % (11.5-14.5); Segmented Neutrophils % 75.6 %; White Blood Count 10.1 K/mcL (4.3-11.1)
[2019-10-21] MEDS ORDERED: Isovue-370 500 ML BOTTLE IVP ONE (20:34)
[2019-10-21 20:37] LABS: Activated Partial Thrombo Time 39.1 Seconds (26.0-36.0); INR 1.8
[2019-10-21 20:42] LABS: Calcium 8.2 mg/dL (8.6-10.3); Potassium 4.8 mEq/L (3.5-5.1)
[2019-10-21] MEDS ORDERED: 0.9 % Sodium Chloride 250 ML ONE (21:25)
[2019-10-21 21:30] LABS: Albumin 2.9 g/dL (3.5-5.7); Albumin/Globulin Ratio 0.8 (1.1-2.2); Bilirubin,Indirect 0.3 mg/dL (0.0-1.0); Bilirubin,Total 0.3 mg/dL (0.3-1.0); Globulin 3.8 g/dL (2.4-3.5); Total Protein 6.7 g/dL (6.4-8.9)
[2019-10-21] MEDS ORDERED: Ondansetron 4 MG/2 ML VIAL IVP PRN (22:35)
[2019-10-21] MEDS ORDERED: Naloxone 0.4 MG/ML INJ IVP PRN (22:35)
[2019-10-21] MEDS ORDERED: 0.9 % Sodium Chloride 1,000 ML IVC SCH (22:45)
[2019-10-22] MEDS ORDERED: SODIUM CHLORIDE/NAHCO3/KCL/PEG 4,000 ML SOLN.RECON PO ONE (01:06)
[2019-10-22 04:04] LABS: Basophils % 0.2 %; Eosinophils # 0.1 K/mcL (0.0-0.6); Eosinophils % 0.9 %; Hematocrit 28.2 % (37.5-50.1); Hemoglobin 9.1 g/dL (12.9-16.9); Immature Granulocytes % 1.1 % (0-4); Lymphocytes # 2.2 K/mcL (0.6-4.6); Lymphocytes % 21.9 %; Mean Corpuscular HGB Conc 32.3 g/dL (31.6-35.5); Mean Corpuscular Hemoglobin 28.5 pg (28.0-33.3); Mean Corpuscular Volume 88.4 fL (83.0-100.0); Mean Platelet Volume 9.6 fL (9.4-12.4); Monocytes # 1.5 K/mcL (0.0-1.3); Monocytes % 14.5 %; Neutrophils # 6.2 K/mcL (1.6-8.9); Nucleated Red Blood Cells 0.2 /100 WBC (0); Platelet Count 275 K/mcL (140-400); Red Blood Count 3.19 M/mcL (4.19-5.50); Red Cell Distribution Width 15.9 % (11.5-14.5); Segmented Neutrophils % 61.4 %; White Blood Count 10.1 K/mcL (4.3-11.1)
[2019-10-22 04:12] LABS: Activated Partial Thrombo Time 38.6 Seconds (26.0-36.0); INR 1.6; Prothrombin Time 17.7 Seconds (9.4-12.1)
[2019-10-22 04:24] LABS: Albumin 2.8 g/dL (3.5-5.7); Albumin/Globulin Ratio 0.8 (1.1-2.2); Bilirubin,Total 0.6 mg/dL (0.3-1.0); Globulin 3.7 g/dL (2.4-3.5); Potassium 5.6 mEq/L (3.5-5.1); Total Protein 6.5 g/dL (6.4-8.9)
[2019-10-22] MEDS ORDERED: Pantoprazole 40 MG VIAL IVP SCH (06:00)
[2019-10-22] MEDS ORDERED: NON-FORMULARY MEDICATION 1 EACH EACH (Fluticasone Propionate [Flovent Hfa] 1 PUFF) IH SCH (09:00)
[2019-10-22] MEDS ORDERED: Ipratropium 1 PUFF INHALER IH SCH (10:00)
[2019-10-22] MEDS ORDERED: Budesonide/Formoterol 160/4.5 1 PUFF INH IH SCH (10:00)
[2019-10-22] MEDS ORDERED: Acetaminophen 325 MG TABLET PO PRN (10:34)
[2019-10-22] MEDS ORDERED: Lidocaine -MPF 2% 2 ML VIAL ONE (12:20)
[2019-10-22] MEDS ORDERED: *HR* Succinylcholine 200 MG/10 ML VIAL IVP ONE (12:31)
[2019-10-22] MEDS ORDERED: Ringers Solution, Lactated 1,000 ML IVC SCH (16:45)
[2019-10-22 18:01] LABS: Calcium 8.5 mg/dL (8.6-10.3); Potassium 4.9 mEq/L (3.5-5.1)
[2019-10-22 18:24] VITALS: BP 107/72
[2019-10-23] MEDS ORDERED: polyethylene glycoL 3350 17 GM POWD.PACK PO SCH (09:00)
== END 2019-10-22 19:00 | disposition left against medical advice (07) ==
LOC: EMEROOARM 19:38 → 2NNU 19:38 → SUATTDRO 22:54 → 2NNU 23:25 → 3ANU 10-22 12:16
PROVIDERS: ADMIT Internal Medicine; ATTEND Pharmacist

== ENCOUNTER 2019-11-03 00:14 | Observation (INO) ==
[2019-11-03] MEDS ORDERED: 0.9 % Sodium Chloride 1,000 ML IVC ONE (01:46)
[2019-11-03 02:36] LABS: INR 3.1; Prothrombin Time 35.3 Seconds (9.4-12.1)
[2019-11-03 02:50] LABS: Albumin 2.9 g/dL (3.5-5.7); Albumin/Globulin Ratio 0.7 (1.1-2.2); Bilirubin,Total 0.2 mg/dL (0.3-1.0); Calcium 8.2 mg/dL (8.6-10.3); Globulin 3.9 g/dL (2.4-3.5); Potassium 5.2 mEq/L (3.5-5.1); Total Protein 6.8 g/dL (6.4-8.9)
[2019-11-03 03:28] LABS: Red Cell Distribution Width 17.7 % (11.5-14.5)
[2019-11-03 03:30] LABS: Basophils % 0.4 %; Eosinophils # 0.3 K/mcL (0.0-0.6); Eosinophils % 3.3 %; Hematocrit 18.2 % (37.5-50.1); Immature Granulocytes % 0.4 % (0-4); Lymphocytes # 1.7 K/mcL (0.6-4.6); Lymphocytes % 20.7 %; Mean Corpuscular HGB Conc 30.2 g/dL (31.6-35.5); Mean Corpuscular Hemoglobin 28.9 pg (28.0-33.3); Mean Corpuscular Volume 95.8 fL (83.0-100.0); Mean Platelet Volume 9.9 fL (9.4-12.4); Monocytes # 0.9 K/mcL (0.0-1.3); Monocytes % 10.8 %; Platelet Count 217 K/mcL (140-400); Segmented Neutrophils % 64.4 %; White Blood Count 8.3 K/mcL (4.3-11.1)
[2019-11-03 03:32] LABS: Neutrophils # 5.4 K/mcL (1.6-8.9)
[2019-11-03 03:35] LABS: Hemoglobin 5.5 g/dL (12.9-16.9)
[2019-11-03] MEDS ORDERED: 0.9 % Sodium Chloride 500 ML ONE (04:13)
[2019-11-03 04:17] LABS: Platelet Estimate Normal (Normal)
[2019-11-03] MEDS ORDERED: Pantoprazole 40 MG VIAL IVP ONE (04:24)
[2019-11-03] MEDS ORDERED: Naloxone 0.4 MG/ML INJ IVP PRN (05:23)
[2019-11-03] MEDS ORDERED: *HR* Promethazine 25 MG/ML VIAL IVP PRN (06:00)
[2019-11-03 06:58] LABS: Magnesium 1.8 mg/dL (1.6-2.6); Phosphorous 3.3 mg/dL (2.7-4.5)
[2019-11-03] MEDS ORDERED: 0.9 % Sodium Chloride 250 ML ONE ×2 (08:12→14:54)
[2019-11-03] MEDS: *HR* OxyCODONE Immed Rel 5 MG TABLET PO PRN ×3 (08:52→21:19)
[2019-11-03] MEDS: Pantoprazole 40 MG VIAL IVP SCH ×2 (12:26→18:26)
[2019-11-03] MEDS: Nicotine 14 MG PATCH.TD24 TD SCH (13:51)
[2019-11-03] MEDS: Octreotide 400 MCG in 0.9 % Sodium Chloride 100 ML IVC SCH (13:57)
[2019-11-03] MEDS: 0.9 % Sodium Chloride 1,000 ML IVC SCH (18:25)
[2019-11-04 01:12] LABS: Hematocrit 30.6 % (37.5-50.1); Hemoglobin 9.5 g/dL (12.9-16.9); Mean Corpuscular Hemoglobin 29.3 pg (28.0-33.3); Mean Corpuscular Volume 94.4 fL (83.0-100.0); Mean Platelet Volume 9.7 fL (9.4-12.4); Platelet Count 205 K/mcL (140-400); Red Blood Count 3.24 M/mcL (4.19-5.50); Red Cell Distribution Width 15.9 % (11.5-14.5); White Blood Count 6.5 K/mcL (4.3-11.1)
[2019-11-04] MEDS: 0.9 % Sodium Chloride 1,000 ML IVC SCH (03:27)
[2019-11-04 03:33] LABS: INR 1.4; Prothrombin Time 15.4 Seconds (9.4-12.1)
[2019-11-04 03:39] LABS: Basophils # 0.1 K/mcL (0.0-0.2); Basophils % 0.8 %; Eosinophils # 0.3 K/mcL (0.0-0.6); Eosinophils % 4.1 %; Hematocrit 27.9 % (37.5-50.1); Hemoglobin 8.7 g/dL (12.9-16.9); Immature Granulocytes % 0.5 % (0-4); Lymphocytes # 2.1 K/mcL (0.6-4.6); Lymphocytes % 30.8 %; Mean Corpuscular HGB Conc 31.2 g/dL (31.6-35.5); Mean Corpuscular Hemoglobin 29.3 pg (28.0-33.3); Mean Corpuscular Volume 93.9 fL (83.0-100.0); Mean Platelet Volume 10.2 fL (9.4-12.4); Monocytes # 0.6 K/mcL (0.0-1.3); Monocytes % 9.3 %; Neutrophils # 3.6 K/mcL (1.6-8.9); Platelet Count 178 K/mcL (140-400); Red Blood Count 2.97 M/mcL (4.19-5.50); Red Cell Distribution Width 15.8 % (11.5-14.5); Segmented Neutrophils % 54.5 %; White Blood Count 6.7 K/mcL (4.3-11.1)
[2019-11-04 03:59] LABS: BUN/Creatinine Ratio 18 (6-26); Blood Urea Nitrogen 22 mg/dL (8-23); Carbon Dioxide 18 mEq/L (23-29); Chloride 108 mEq/L (98-107); Glucose 66 mg/dL (70-105); Magnesium 1.5 mg/dL (1.6-2.6); Osmolality,Calculated 274 (280-300); Potassium 5.9 mEq/L (3.5-5.1); Sodium 131 mEq/L (136-145); eGFR For African Americans > 60 (> 60); eGFR For Non-African Americans > 60 (> 60)
[2019-11-04 04:00] LABS: Phosphorous 2.4 mg/dL (2.7-4.5)
[2019-11-04] MEDS: Octreotide 400 MCG in 0.9 % Sodium Chloride 100 ML IVC SCH (05:41)
[2019-11-04] MEDS: Pantoprazole 40 MG VIAL IVP SCH (05:41)
[2019-11-04] MEDS: *HR* OxyCODONE Immed Rel 5 MG TABLET PO PRN (05:41)
[2019-11-04] MEDS ORDERED: Insulin Human Regular 10 UNIT in 0.9 % Sodium Chloride 10 ML IV ONE (08:15)
[2019-11-04] MEDS ORDERED: *HR* Dextrose 50 % in Water (Vial) 50 ML VIAL IVP ONE (08:15)
[2019-11-04] MEDS: Nicotine 14 MG PATCH.TD24 TD SCH (09:15)
[2019-11-04] MEDS ORDERED: Budesonide/Formoterol 160/4.5 1 PUFF INH IH SCH (10:00)
[2019-11-04] MEDS: Ipratropium 1 PUFF INHALER IH SCH ×2 (10:27→15:18)
[2019-11-04 11:23] VITALS: BP 151/88
[2019-11-04 13:01] LABS: Hemoglobin 10.1 g/dL (12.9-16.9)
== END 2019-11-04 16:27 | disposition home or self-care (01) ==
LOC: EMEROOARM 00:14 → 3ANU 00:14
PROVIDERS: ADMIT Student in an Organized Health Care Education/Training Program; ATTEND Student in an Organized Health Care Education/Training Program